=== PATIENT | male | born 1975 ===

== ENCOUNTER → 2020-04-07 14:06 | Outpatient (BNVA) | payer MEDICARE, MEDICAID, SELFPAY | PROVIDERS: PCP Internal Medicine; Visit Provider Internal Medicine Pulmonary Disease | DX: J45.30 Mild persistent asthma, uncomplicated (principal); R04.2 Hemoptysis | CPT/HCPCS: 99212 ==

== ENCOUNTER 2020-04-15 12:48 | Outpatient (REF) | payer MEDICARE, MEDICAID, SELFPAY ==
--- NOTE | 2020-04-15 12:50 | CT_ITS ---
EXAMINATION: CT CHEST WITHOUT CONTRAST CLINICAL INFORMATION: Hemoptysis COMPARISON: Previous chest CT November 2019 TECHNIQUE: Multidetector volumetric CT imaging of the chest was done. Axial MIP volume rendering provided. Sagittal and coronal reformatted images were obtained. This CT examination was performed using dose optimization techniques as appropriate, variously including the following: *Automated exposure control *Adjustment of mA and/or kV according to patient size (this includes techniques or standardized protocols for targeted exams where dose is matched to indication/reason for exam; i.e. 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 Largest pulmonary nodule is a 3 mm calcified pulmonary nodule in the lingula axial image 387 series 5. No new pulmonary nodule is seen. The lungs are otherwise clear. No bronchial wall thickening, bronchiectasis or endobronchial or endotracheal lesion is seen. MEDIASTINUM: The mediastinum is normal. PLEURA: There is no pleural effusion. No pleural mass or thickening. AXILLA: No lymphadenopathy. UPPER ABDOMEN: There may be a tiny gallstone in the gallbladder. There is diverticulosis of the colon. OSSEOUS STRUCTURES: Unremarkable. CT/CT chest wo con IMPRESSION: Stable small calcified and noncalcified pulmonary nodules. Slight elevation of the right hemidiaphragm. No cause of hemoptysis seen.
== END 2020-04-15 12:49 | disposition home or self-care (01) ==
LOC: HO.CT 12:48
PROVIDERS: PCP Internal Medicine; Visit Provider Internal Medicine Pulmonary Disease
DX: R04.2 Hemoptysis (principal)
CPT/HCPCS: 71250

== ENCOUNTER 2020-05-17 13:58 | Emergency (ER) | payer MEDICARE, MEDICAID, SELFPAY ==
--- NOTE | ~2020-05-17 | XR_ITS ---
EXAMINATION: XR SACRUM AND COCCYX CLINICAL INFORMATION: Back pain status post fall. COMPARISON: 08/12/2015 sacrum/coccyx radiographs. TECHNIQUE: 2 views of the sacrum and 2 views of the coccyx were obtained. FINDINGS: There is normal sacrococcygeal curvature. No acute fracture is seen. The soft tissues are unremarkable. XR/XR sacrum coccyx min 2V IMPRESSION: No acute fracture. No significant interval change.
--- NOTE | ~2020-05-17 | XR_ITS ---
EXAMINATION: XR HIP, RIGHT CLINICAL INFORMATION: Pain after fall COMPARISON: None TECHNIQUE: Two views of the right hip. FINDINGS: Bones and soft tissues are normal. No fracture. Alignment is anatomic. Hip joint space is maintained. XR/XR hip RT w PEL1V IMPRESSION: Normal right hip.
--- NOTE | ~2020-05-17 | XR_ITS ---
EXAMINATION: XR LUMBOSACRAL SPINE CLINICAL INFORMATION: Back pain status post slip and fall. COMPARISON: None TECHNIQUE: Three views of the lumbosacral spine. FINDINGS: Mild lumbar dextro scoliosis is seen with apex at L2-3. There is normal lumbar lordosis and spinal alignment. The vertebral bodies are intact. The intervertebral disc spaces are unremarkable. There is no acute fracture. XR/XR lumbar spine 2-3V IMPRESSION: Mild lumbar dextroscoliosis. No acute fracture.
[2020-05-17 14:00] VITALS: BP 135/99; PULSE 87; RESP 18; TEMP 36.7; O2SAT 99; BMI 29.1
[2020-05-17] MEDS: Ibuprofen 800 MG TABLET PO (16:03)
[2020-05-17] MEDS: oxyCODONE HCl Immed Release 5 MG TABLET PO (16:03)
--- NOTE | 2020-05-17 16:03 | ED.FALL ---
HPI - Fall General Chief Complaint: Fall Stated Complaint: FALL Time Seen by Provider: 05/17/20 14:13 Source: patient Mode of arrival: ambulatory Limitations: no limitations History of Present Illness HPI Narrative: 45-year-old male presenting to the ED with complaints of right hip/lower back/coccyx pain after he slipped and fell while shoveling his stairs at his house on Monday worse today. Reports that he fell down 3 steps. Denies head injury or loss of consciousness. Denies being on any blood thinners. Denies any other injuries complaints or concerns at this time. Related Data Home Medications Medication Instructions Recorded Confirmed fluticasone 250 mcg-salmeterol 50 1 ea PO BID 04/07/20 mcg/dose blistr powdr for inhalation Previous Rx's Medication Instructions Recorded amoxicillin 250 mg capsule 250 mg PO Q8H #30 cap 03/12/20 tiotropium 2.5 mcg-olodaterol 2.5 2 puff INHALATION DAILY 30 Days #1 04/07/20 mcg/actuation mist for inhalation ea acetaminophen [Tylenol Extra 1,000 mg PO QID PRN #14 tab 05/17/20 Strength] cyclobenzaprine 10 mg PO TID PRN #10 tab 05/17/20 ibuprofen 800 mg PO Q8H PRN #14 tab 05/17/20 lidocaine [Lidoderm] 1 patch TOPICAL DAILY #15 ea 05/17/20 oxycodone 5 mg PO BID PRN #10 tab 05/17/20 Allergies Allergy/AdvReac Type Severity Reaction Status Date / Time No Known Allergies Allergy Verified 05/07/20 08:16 Review of Systems Review of Systems: Constitutional : No trauma, No Weight loss, No Fever, No Chills, ENT/Mouth : No Hearing loss, No Ear Pain, No Nasal Congestion, No Sinus Pain, No Hoarseness, No sore throat, No Rhinorrhea, No Swallowing Difficulty Cardiovascular : No Chest Pain, No SOB Respiratory : No Cough, No Dyspnea Gastrointestinal : No Nausea, No Vomiting, No Diarrhea, No abdominal Pain, No Hematochezia, No Melena Genitourinary : No Dysuria, No Urinary Frequency, No Hematuria, No Urinary or Bowel Incontinence/retention Musculoskeletal : + Back pain, No neck pain, No joint stiffness, No joint swelling Skin : No Skin Lesions, No rash or signs of infection Neuro : No Weakness, No radiation, No Numbness, No Paresthesias, No headache, no loss of bowel or bladder incontinence, no saddle anesthesia Denies history of IV drug usage. Yes all other systems are reviewed and are negative COUNTS INCLUDE 234 BEDS AT THE [facility] Past Medical History Attestation statement: The following information was validated with the patient. Surgical History History of ear surgery History of lipoma History of surgery History of tonsillectomy Family History Family History Father Hypertension Mother Diabetes Paternal Grandfather Colon cancer Family/Other FH: mental illness Social History Social History Alcohol intake: never Smoking Status: Former smoker Tobacco Type: Cigarette Advance Directives: Yes Advance Directives Information Provided: Yes Advance Directives on File: No Physical Exam Vital Signs: Vital Signs: Last Vital Signs Temp 98.0 F 05/17/20 14:00 Pulse 87 05/17/20 14:00 Resp 18 05/17/20 14:00 BP 135/99 H 05/17/20 14:00 Pulse Ox 99 05/17/20 14:00 Body Mass Index 29.1 vital signs have been reviewed as normal and appeared to be correct. Blood pressure normal. Heart rate normal. Respiration rate normal. Temperature normal. Oxygen saturation normal. Appearance: Alert. Oriented X3. No acute distress. Head: Normal external exam. Normocephalic. Atraumatic. No Asher signs noted. No raccoon eyes noted Eyes: PERRLA. EOMI. Conjunctiva and sclera normal. Eyelids normal. ENT: EAC normal. TM's Normal. Pharynx normal. Uvula midline. Moist mucous membranes. No trismus noted. No drooling noted. No muffled voice noted. Neck: Normal inspection. Neck supple. FROM. No adenopathy. Thyroid Normal. No meningeal signs. No neck mass noted. CVS: Normal heart rate and rhythm. Heart sound normal. No murmurs noted. Pulses normal throughout. Respiratory: No respiratory distress. Painless inspiration. Breath sounds normal. No wheezes/rales/rhonchi noted. Chest nontender. No accessory muscle usage noted or decreased air movement noted. Abdomen: Soft and nontender. Bowel sounds normal in all 4 quadrants. No distention noted. No organomegaly noted. No visible injury noted. Back: No CVA tenderness. Full range of motion noted. No obvious deformities, or edema. Mild para-spinal muscular tenderness from lumbar region to coccyx. Full ROM in back and lower extremities. 5/5 strength hip extension/flexion, abduction, adduction. Mild Lumbar pain with hip flexion against resistance. Straight leg raise test negative on right; Straight leg raise test negative on left; Reflexes normal ankle and knee bilaterally; EHL motor strength normal bilaterally Skin: Skin warm and dry. Normal skin color. Normal skin turgor. No rashes/lesions/lacerations noted. Extremities: Patient with tenderness to palpation to right hip joint. No obvious deformities noted. Patient has full range of motion. No laxity noted. No rashes/lesion/induration/fluctuance or signs of infection noted. No lower extremity edema. Extremities exhibit normal range of motion. Extremities nontender. Neuro: Oriented X 3. No motor deficit. No sensory deficit. Reflexes normal. Patient has a normal steady gait. Course Course Course Narrative: Pt c likely muscular pain, but could be herniated disc. Neuro exam shows no deficits. Not c/w AAA/epidural abscess/dissection.No high risk Hx (Incont, fever, immunosupp, recent surgery/LP, coag, signif trauma, wt loss, puls mass, hx/o Ca, TB, or IVDU) to warrant MRI/CT today. Not c/w Pyelo/UTI/kidney stone/spinal fx. Not cauda equina syndrome. Will obtain x-rays of lumbar/coccyx and right hip provide symptomatic treatment and re-evaluate. Reevaluation(s) Reevaluation #1: - x-ray of right hip/lumbar spine and coccyx and sacrum within normal limits no acute fractures or any other acute processes. Will DC home with symptomatic treatment along with instructions to return if any new or worsening symptoms to follow up with primary care provider. Patient understands agrees the plan. Time: 16:25 [facility] - Fall Medical Records Attestation: I reviewed the patient's medical records. Imaging Data Lumbar spine x-ray: Attestation: I personally reviewed and interpreted this imaging study as follows: Radiologist's impression: FINDINGS: Mild lumbar dextro scoliosis is seen with apex at L2-3. There is normal lumbar lordosis and spinal alignment. The vertebral bodies are intact. The intervertebral disc spaces are unremarkable. There is no acute fracture. XR/XR lumbar spine 2-3V IMPRESSION: Mild lumbar dextroscoliosis. No acute fracture. Right hip x-ray: Attestation: I personally reviewed and interpreted this imaging study as follows: Radiologist's impression: FINDINGS: Bones and soft tissues are normal. No fracture. Alignment is anatomic. Hip joint space is maintained. XR/XR hip RT w PEL1V IMPRESSION: Normal right hip. Coccyx and sacrum x-ray: Attestation: I personally reviewed and interpreted this imaging study as follows: Radiologist's impression: FINDINGS: There is normal sacrococcygeal curvature. No acute fracture is seen. The soft tissues are unremarkable. XR/XR sacrum coccyx min 2V IMPRESSION: No acute fracture. No significant interval change. Discharge Plan Discharge Clinical Impression: Lumbar strain, Strain of coccyx, Strain of right hip, Fall Patient Disposition: Home, Self-Care Instructions: Low Back Strain (ED), Lower Back Exercises (ED) Prescriptions: New cyclobenzaprine 10 mg tablet 10 mg PO TID PRN (Reason: muscle spasm) Qty: 10 RF: 0 ibuprofen 800 mg tablet 800 mg PO Q8H PRN (Reason: pain) Qty: 14 RF: 0 acetaminophen [Tylenol Extra Strength] 500 mg tablet 1,000 mg PO QID PRN (Reason: fever or pain) Qty: 14 RF: 0 lidocaine [Lidoderm] 5 % adhesive patch,medicated 1 patch topical DAILY Qty: 15 RF: 0 oxycodone 5 mg tablet 5 mg PO BID PRN (Reason: pain) Qty: 10 RF: 0 No Action amoxicillin 250 mg capsule 250 mg PO Q8H Qty: 30 RF: 0 Stiolto Respimat 2.5-2.5 mcg/actuation mist 2 puff inhalation DAILY 30 Days Qty: 1 RF: 6 Referrals: Lauren Oconnor MD [Primary Care Provider] - 2 days Stand Alone Forms: Work/School Release Print Language: Luxembourger
== END 2020-05-17 16:40 | disposition home or self-care (01) ==
PROVIDERS: Emergency Provider Emergency Medicine; PCP Internal Medicine
DX: S39.012A Strain of muscle, fascia and tendon of lower back, initial encounter (principal); S33.8XXA Sprain of other parts of lumbar spine and pelvis, initial encounter; S76.011A Strain of muscle, fascia and tendon of right hip, initial encounter; W00.1XXA Fall from stairs and steps due to ice and snow, initial encounter; Y93.H1 Activity, digging, shoveling and raking; Y92.018 Other place in single-family (private) house as the place of occurrence of the external cause; Y99.9 Unspecified external cause status; F17.210 Nicotine dependence, cigarettes, uncomplicated
CPT/HCPCS: 72100; 72220; 73502; 99283

== ENCOUNTER 2020-07-22 15:11 | Outpatient (REF) | payer MEDICARE, MEDICAID, SELFPAY | END 2020-07-22 15:12 | disposition home or self-care (01) | LOC: HO.LAB 15:11 | PROVIDERS: Visit Provider Internal Medicine | DX: Z20.822 Contact with and (suspected) exposure to COVID-19 (principal) | CPT/HCPCS: C9803; U0003; U0005 ==

== ENCOUNTER → 2020-08-11 13:48 | Outpatient (BNVA) | payer SELFPAY | PROVIDERS: PCP Internal Medicine; Visit Provider Physician Assistant Medical | DX: Z02.79 Encounter for issue of other medical certificate (principal) ==

== ENCOUNTER 2021-02-13 07:55 | Outpatient (REF) | payer MEDICARE, MEDICAID, SELFPAY ==
--- NOTE | ~2021-02-13 | XR_ITS ---
EXAMINATION: XR CHEST CLINICAL INFORMATION: Chest pain COMPARISON: Previous chest x-rays most recent October [address] April 2020 TECHNIQUE: 2 views of the chest were obtained. FINDINGS: The cardiac and mediastinal contours are stable. There is slight elevation of the right hemidiaphragm that is unchanged. The lungs are clear. There is no pleural effusion or pneumothorax. Bony structures are unremarkable. XR/XR chest 2V IMPRESSION: No evidence for acute disease in the chest.
[2021-02-13 08:06] LABS: MANUAL DIFF FLAG NO
[2021-02-13 09:35] LABS: Basophils Absolute Auto 0.1 X10*3/uL (0.0-0.2); Basophils Percent Auto 0.8 % (0-2); Eosinophils Absolute Auto 0.2 X10*3/uL (0.0-0.4); Eosinophils Percent Auto 1.7 % (0-4); Hematocrit 44.9 % (42.0-52.0); Hemoglobin 14.5 g/dl (14.0-18.0); Imm Gran Abs Auto 0.05 X10*3/uL (0.00-0.03); Imm Gran Pct Auto 0.6 % (0.0-0.4); Lymphocytes Absolute Auto 2.5 X10*3/uL (1.2-4.9); Mean Corpuscular HGB Conc 32.3 g/dl (31.0-36.0); Mean Corpuscular Hemoglobin 30.9 pg (27.0-33.0); Mean Corpuscular Volume 95.5 fL (80.0-98.0); Monocytes Percent Auto 10.9 % (2-11); Platelet Count 225 X10*3/uL (160-400); Red Cell Distribution Width 11.3 % (11.0-16.0); White Blood Count 8.7 X10*3/uL (4.8-10.8)
[2021-02-13 09:58] LABS: Alanine Aminotransferase 18 U/L (0-40); Albumin Level 4.2 g/dL (3.5-5.0); Alkaline Phosphatase 58 U/L (39-117); Anion Gap 10 (12-20); Aspartate Amino Transferase 17 U/L (5-37); Bilirubin Total 0.5 mg/dL (0.0-1.0); Blood Urea Nitrogen 18 mg/dL (9-16); Calcium 8.8 mg/dL (8.4-10.2); Carbon Dioxide 24 mmol/L (22-29); Chloride 111 mmol/L (96-108); Cholesterol 137 mg/dL; Estimated Glomerular Filt Rate > 60; Glucose Fasting 87 mg/dL (60-99); HDL Cholesterol 31 mg/dL; LDL Cholesterol Calculated 90 mg/dl; Potassium 4.7 mmol/L (3.3-5.1); Sodium 140 mmol/L (135-145); Total Protein 6.5 g/dL (6.5-8.0); Triglycerides 80 mg/dL
== END 2021-02-13 07:56 | disposition home or self-care (01) ==
LOC: HO.LAB 07:55
PROVIDERS: PCP Internal Medicine; Visit Provider Internal Medicine
DX: R07.9 Chest pain, unspecified (principal); E78.5 Hyperlipidemia, unspecified; D64.9 Anemia, unspecified
CPT/HCPCS: 36415; 71046; 80053; 80061; 85025

== ENCOUNTER 2021-07-01 09:04 | Outpatient (REF) | payer MEDICARE, MEDICAID, SELFPAY ==
[2021-07-01 09:26] LABS: COVID-19 Test Positive (Negative)
== END 2021-07-01 09:05 | disposition home or self-care (01) ==
LOC: HO.LAB 09:04
PROVIDERS: Visit Provider Internal Medicine
DX: Z20.822 Contact with and (suspected) exposure to COVID-19 (principal)
CPT/HCPCS: 87635; C9803

== ENCOUNTER 2021-08-11 20:21 | Emergency (ER) | payer MEDICARE, MEDICAID, SELFPAY ==
--- NOTE | ~2021-08-11 | XR_ITS ---
EXAMINATION: LEFT ANKLE AND LEFT FOOT.. CLINICAL INFORMATION: Crush injury. COMPARISON: None TECHNIQUE: 3 views left foot and 2 views left ankle. FINDINGS: There is no visible acute fracture, dislocation or subluxation. The subtalar joints and the ankle mortise is normal. There is a small retrocalcaneal enthesophyte. The soft tissues are normal. Left ankle: The ankle mortise and subtalar joints are normal. There is no abnormal joint effusion. No acute fracture seen. XR/XR foot LT 2V IMPRESSION: No acute fracture or dislocation left foot or left ankle. There is a small retrocalcaneal enthesophyte. The soft tissues are normal.
--- NOTE | ~2021-08-11 | XR_ITS ---
EXAMINATION: LEFT ANKLE AND LEFT FOOT.. CLINICAL INFORMATION: Crush injury. COMPARISON: None TECHNIQUE: 3 views left foot and 2 views left ankle. FINDINGS: There is no visible acute fracture, dislocation or subluxation. The subtalar joints and the ankle mortise is normal. There is a small retrocalcaneal enthesophyte. The soft tissues are normal. Left ankle: The ankle mortise and subtalar joints are normal. There is no abnormal joint effusion. No acute fracture seen. XR/XR ankle LT 2V IMPRESSION: No acute fracture or dislocation left foot or left ankle. There is a small retrocalcaneal enthesophyte. The soft tissues are normal.
[2021-08-11 22:41] VITALS: BP 124/92; PULSE 73; RESP 16; TEMP 36.4; O2SAT 98; BMI 26.0
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
[2021-08-11] MEDS: Ketorolac Tromethamine 60 MG/2 ML VIAL IM (23:56)
== END 2021-08-12 00:10 | disposition home or self-care (01) ==
PROVIDERS: Emergency Provider Internal Medicine; PCP Internal Medicine
DX: S90.32XA Contusion of left foot, initial encounter (principal); W20.8XXA Other cause of strike by thrown, projected or falling object, initial encounter; Y93.9 Activity, unspecified; Y92.9 Unspecified place or not applicable; Y99.9 Unspecified external cause status
CPT/HCPCS: 73600; 73620; 96372; 99283; 99284; J1885

== ENCOUNTER → 2021-08-16 09:56 | Outpatient (BNVA) | payer MEDICARE, MEDICAID, SELFPAY | PROVIDERS: PCP Internal Medicine; Visit Provider Internal Medicine Gastroenterology | DX: K92.1 Melena (principal) | CPT/HCPCS: 99202 ==

== ENCOUNTER 2021-11-25 12:38 | Emergency (ER) | payer MEDICARE, MEDICAID, SELFPAY ==
--- NOTE | ~2021-11-25 | CT_ITS ---
EXAMINATION: CT ABDOMEN AND PELVIS WITHOUT CONTRAST CLINICAL INFORMATION: Right lower quadrant pain COMPARISON: None TECHNIQUE: Multidetector volumetric imaging was performed from the superior aspect of the liver through the pubic symphysis. Sagittal and coronal reformatted images were obtained on the technologist's workstation. This CT examination was performed using dose optimization techniques as appropriate, variously including the following: *Automated exposure control *Adjustment of mA and/or kV according to patient size (this includes techniques or standardized protocols for targeted exams where dose is matched to indication/reason for exam; i.e. extremities or head) *Use of iterative reconstruction technique DLP: 748 mGy-cm FINDINGS: LUNG BASES: The visualized lung bases are unremarkable. LIVER, GALLBLADDER, AND BILIARY TREE: The liver is normal in size, shape, and attenuation. No focal hepatic lesion or biliary ductal dilatation is present. The gallbladder is unremarkable with no evidence of radiopaque gallstones, gallbladder wall thickening, or obvious pericholecystic inflammatory changes. PANCREAS: Unremarkable. SPLEEN: Unremarkable. ADRENAL GLANDS: Unremarkable. KIDNEYS AND URETERS: The kidneys are normal in size, shape, and attenuation. No hydronephrosis, hydroureter, or calculi seen. No perinephric stranding. BLADDER: Unremarkable. GASTROINTESTINAL TRACT: The small and large bowel are unremarkable. The appendix is unremarkable. ABDOMINAL WALL: No significant hernia is appreciated. LYMPH NODES: Normal. VASCULAR: Unremarkable. PELVIC VISCERA: Unremarkable. OSSEOUS STRUCTURES: Unremarkable. CT/CT abdomen pelvis wo con IMPRESSION: No acute abnormality CT scan abdomen pelvis. Fleischner guidelines were followed.
[2021-11-25 12:43] VITALS: BP 139/96; PULSE 65; RESP 18; TEMP 36.8; O2SAT 98; BMI 26.8
[2021-11-25 14:01] LABS: MANUAL DIFF FLAG NO
[2021-11-25 14:06] LABS: Basophils Absolute Auto 0.1 X10*3/uL (0.0-0.2); Basophils Percent Auto 0.6 % (0-2); Eosinophils Absolute Auto 0.1 X10*3/uL (0.0-0.4); Eosinophils Percent Auto 1.2 % (0-4); Hematocrit 44.9 % (42.0-52.0); Imm Gran Abs Auto 0.06 X10*3/uL (0.00-0.03); Imm Gran Pct Auto 0.7 % (0.0-0.4); Lymphocytes Absolute Auto 2.7 X10*3/uL (1.2-4.9); Lymphocytes Percent Auto 30.5 % (20-40); Mean Corpuscular HGB Conc 33.4 g/dl (31.0-36.0); Mean Corpuscular Hemoglobin 30.6 pg (27.0-33.0); Mean Corpuscular Volume 91.6 fL (80.0-98.0); Mean Platelet Volume 10.3 fL (9.4-12.4); Monocytes Absolute Auto 0.8 X10*3/uL (0.1-1.2); Monocytes Percent Auto 9.5 % (2-11); Neutrophils Absolute Auto 5.1 x10*3/uL (2.0-8.3); Neutrophils Percent Auto 57.5 % (45-73); Platelet Count 212 X10*3/uL (160-400); Red Cell Distribution Width 11.5 % (11.0-16.0); White Blood Count 8.9 X10*3/uL (4.8-10.8)
[2021-11-25 14:21] LABS: Alanine Aminotransferase 33 U/L (0-40); Albumin Level 4.1 g/dL (3.5-5.0); Alkaline Phosphatase 56 U/L (39-117); Anion Gap 12 (12-20); Aspartate Amino Transferase 21 U/L (5-37); Bilirubin Total 0.6 mg/dL (0.0-1.0); Blood Urea Nitrogen 10 mg/dL (9-16); Calcium 9.1 mg/dL (8.4-10.2); Carbon Dioxide 27 mmol/L (22-29); Chloride 107 mmol/L (96-108); Creatinine Clr Calc Pharmacy 92.6; Estimated Glomerular Filt Rate > 60; Glucose Random 85 mg/dL (60-115); Potassium 4.6 mmol/L (3.3-5.1); Sodium 141 mmol/L (135-145); Total Protein 6.6 g/dL (6.5-8.0)
--- NOTE | 2021-11-25 16:14 | ED.ABDPAIN ---
HPI - Abdominal Pain General Chief Complaint: Abdominal Pain Stated Complaint: abd pain Time Seen by Provider: 11/25/21 16:14 Source: patient Mode of arrival: ambulatory Limitations: no limitations History of Present Illness HPI narrative: This is a 46 year old male presenting to the emergency department with a complaint of abdominal pain and black stools x1 week. He states that one week ago he began having right lower quadrant pain with associated melena and loose stools. His RLQ pain has been constant since onset and is worse with eating. No radiation of pain. Associated symptoms include chills and one episode of vomiting yesterday. He tells me that he's been told he has a GI bleed and currently has a colonoscopy scheduled with Dr. Burgess. He adds that grandfather from colon cancer. Denies fever, fatigue, weight changes, chest pain, shortness of breath, BRBPR or urinary symptoms. MD elicited complaint: abdominal pain (RLQ) Onset (ago): week(s) (1) Pain Consistency: constant Location: RLQ Severity: moderate Related Data Previous Rx's Medication Instructions Recorded tiotropium 2.5 mcg-olodaterol 2.5 2 puff inhalation DAILY 30 days #1 02/04/21 mcg/actuation mist for inhalation ea (Stiolto Respimat) ipratropium 20 mcg-albuterol 100 1 puff inhalation Q6H 30 days #4 04/27/21 mcg/actuation mist for inhalation grams (Combivent Respimat) cyclobenzaprine 10 mg tablet 10 mg PO TID PRN muscle spasm 30 06/28/21 days #90 tabs oxycodone 5 mg tablet 5 mg PO Q8H PRN pain #5 tabs 08/11/21 sodium,potassium,mag sulfates 17.5 See Rx Instructions PO .COMPLEX 08/16/21 gram-3.13 gram-1.6 gram oral soln #354 mL (Suprep Bowel Prep Kit) simethicone 180 mg capsule (Gas 180 mg PO DAILY PRN abdominal 11/25/21 Relief (simethicone)) distention #20 caps Allergies Allergy/AdvReac Type Severity Reaction Status Date / Time ibuprofen Allergy Intermediate GI Bleeding Verified 11/25/21 12:43 Review of Systems Review of Systems Constitutional : No Weight loss, No Fever, + Chills, No Fatigue, No Malaise ENT/Mouth : No sore throat, No Rhinorrhea Eyes: No Eye Pain, No Swelling, No Redness Cardiovascular : No Chest Pain, No SOB, No Dyspnea on Exertion, No Orthopnea, No Edema, no Palpitations Respiratory : No Cough, No Sputum, No Wheezing Gastrointestinal : No Nausea, + Vomiting, + Diarrhea, No Constipation, + abdominal Pain, No Hematochezia, + Melena Genitourinary : No Dysuria, No Urinary Frequency, No Hematuria, Musculoskeletal : No joint pain, No Myalgias, No Joint Swelling Skin : No Skin Lesions, No rash Neuro : No Weakness, No Numbness, No Dizziness, No Headache Psych : No Anxiety/Panic, No Depression All other systems reviewed and are negative Yes all other systems are reviewed and are negative [facility] Past Medical History Attestation statement: The following information was validated with the patient. Source: old records reviewed and nursing notes reviewed Medical History Chest pain AYLIN (generalized anxiety disorder) Low back pain Melena Mild recurrent major depression Overweight (BMI 25.0-29.9) Pulmonary nodules Surgical History History of ear surgery History of esophagogastroduodenoscopy (EGD) History of lipoma History of surgery History of tonsillectomy Hx of colonoscopy Family History Family History Father Hypertension Mother Diabetes Paternal Grandfather Colon cancer Family/Other FH: mental illness Social History Social History Housing: House Alcohol intake: never Patient Tobacco Use Status: Former Tobacco user Tobacco use type: Cigarette Cigarettes Per Day: 1 e-Cigarette/Vaping Use: Never Used Second Hand Smoke Exposure: No Substance Use Type: Marijuana Advance Directives: No Advance Directives Information Provided: No service: No Current occupational status: employed Current occupational exposures/hazards: No Physical Exam ED Vital Signs: Vital Signs - 24 hr 11/25/21 12:43 11/25/21 18:15 11/25/21 18:17 Temperature 98.2 F Pulse Rate 65 58 Respiratory Rate 18 18 16 Blood Pressure 139/96 H 139/84 Pulse Oximetry 98 97 Oxygen Delivery Method Room Air Room Air BMI result Body Mass Index 26.8 VSS Appearance: Alert.? Oriented X3.? No acute distress.? Head: Normocephalic, atraumatic, no step-offs or deformities Eyes: Pupils equal, round and reactive to light.? ENT: Pharynx normal.? Neck: Normal inspection.? Neck supple.? CVS: Normal heart rate and rhythm.? Pulses normal.? Respiratory: No respiratory distress.? Breath sounds normal.? Abdomen: Soft, mildly tender to palpation of the RLQ. Small nodules noted superficially to the right upper abdomen, mobile, non tender. Abdomen slightly distended. Normoactive bowel sounds. Skin: Skin warm and dry.? Normal skin color.? Normal skin turgor.? Extremities: No lower extremity edema.? No calf ttp. 5/5 strength to bilateral upper and lower extremities Neuro: Oriented X 3.? No motor deficit.? No sensory deficit. Course Reevaluation(s) Reevaluation #1: CBC appears to be within normal limits. Chemistry with no acute electrolyte abnormalities requiring intervention. Urine clean. OBS negative. Time: 19:17 Reevaluation #2: Patient feeling better after passing gas and stool. Reports symptomatic relief after simethicone. abdomen is less distended. Tolerating p.o. fluids. CT of the abdomen and pelvis no acute findings. patient tells us that he is scheduled to see GI on Monday. He will be sent home with simethicone. Went over worrisome symptoms with patient and when to return, patient expressed understanding. I answered all patient's questions and patient expressed understanding of discharge plans. Comfortable to discharge home with follow-up by PCP and GI. Time: 20:30 MDM - Abdominal Pain MDM Narrative Medical decision making narrative: 1615 This is a 46 year old male who presents to the ED with RLQ pain and dark stool x1 week. According to pt he has seen Dr. Burgess for GI bleed and has a colonoscopy scheduled with him. Family history significant for colon cancer. Physical exam significant for right lower quadrant tenderness to palpation, mild distention and small mobile nontender nodules noted to the RUQ. VSS. Rectal exam significant for mucousy stool, no stephen blood. Will rule out GI bleed. Unlikely acute appendicitis or diverticulitis. Plan at this time is to order basic labs, UA, OBS, and CT abd/pelvis. Medical Records Attestation: I reviewed the patient's medical records. Lab Data Attestation: I reviewed the patient's lab results. Result diagrams: 11/25/21 13:57 11/25/21 13:57 Labs: Lab Results 11/25/21 11/25/21 11/25/21 Range/Units 13:57 13:57 18:18 WBC 8.9 (4.8-10.8) X10*3/uL RBC 4.90 (4.60-5.80) X10*6/uL Hgb 15.0 (14.0-18.0) g/dl Hct 44.9 (42.0-52.0) % MCV 91.6 (80.0-98.0) fL MCH 30.6 (27.0-33.0) pg MCHC 33.4 (31.0-36.0) g/dl RDW 11.5 (11.0-16.0) % Plt Count 212 (160-400) X10*3/uL MPV 10.3 (9.4-12.4) fL Immature Gran % (Auto) 0.7 H (0.0-0.4) % Neut % (Auto) 57.5 (45-73) % Lymph % (Auto) 30.5 (20-40) % [place] % (Auto) 9.5 (2-11) % Eos % (Auto) 1.2 (0-4) % Baso % (Auto) 0.6 (0-2) % Lymph # (Auto) 2.7 (1.2-4.9) X10*3/uL [place] # (Auto) 0.8 (0.1-1.2) X10*3/uL Eos # (Auto) 0.1 (0.0-0.4) X10*3/uL Baso # (Auto) 0.1 (0.0-0.2) X10*3/uL Abs Immat Gran (auto) 0.06 H (0.00-0.03) X10*3/uL Absolute Neuts (auto) 5.1 (2.0-8.3) x10*3/uL Absolute Nucleated RBC 0.000 (0.0-0.012) X10*3/uL Nucleated RBC % (auto) 0.0 (0.0-0.2) /100WBC Sodium 141 (135-145) mmol/L Potassium 4.6 (3.3-5.1) mmol/L Chloride 107 (96-108) mmol/L Carbon Dioxide 27 (22-29) mmol/L Anion Gap 12 (12-20) BUN 10 (9-16) mg/dL Creatinine 1.07 (0.5-1.4) mg/dL Estim Creat Clear Calc 92.6 Estimated GFR > 60 Random Glucose 85 (60-115) mg/dL Calcium 9.1 (8.4-10.2) mg/dL Total Bilirubin 0.6 (0.0-1.0) mg/dL AST 21 (5-37) U/L ALT 33 (0-40) U/L Alkaline Phosphatase 56 (39-117) U/L Total Protein 6.6 (6.5-8.0) g/dL Albumin 4.1 (3.5-5.0) g/dL Urine Color Urine Appearance Urine pH (5.0-8.0) Ur Specific [place] (1.005-1.025) Urine Protein (Neg-Trace) mg/dL Urine Glucose (UA) (Negative) mg/dL Urine Ketones (Negative) mg/dL Urine Blood (Negative) Urine Nitrite (Negative) Ur Leukocyte Esterase (Negative) Stool Occult Blood NEGATIVE (NEGATIVE) 11/25/21 Range/Units 18:58 WBC (4.8-10.8) X10*3/uL RBC (4.60-5.80) X10*6/uL Hgb (14.0-18.0) g/dl Hct (42.0-52.0) % MCV (80.0-98.0) fL MCH (27.0-33.0) pg MCHC (31.0-36.0) g/dl RDW (11.0-16.0) % Plt Count (160-400) X10*3/uL MPV (9.4-12.4) fL Immature Gran % (Auto) (0.0-0.4) % Neut % (Auto) (45-73) % Lymph % (Auto) (20-40) % [place] % (Auto) (2-11) % Eos % (Auto) (0-4) % Baso % (Auto) (0-2) % Lymph # (Auto) (1.2-4.9) X10*3/uL [place] # (Auto) (0.1-1.2) X10*3/uL Eos # (Auto) (0.0-0.4) X10*3/uL Baso # (Auto) (0.0-0.2) X10*3/uL Abs Immat Gran (auto) (0.00-0.03) X10*3/uL Absolute Neuts (auto) (2.0-8.3) x10*3/uL Absolute Nucleated RBC (0.0-0.012) X10*3/uL Nucleated RBC % (auto) (0.0-0.2) /100WBC Sodium (135-145) mmol/L Potassium (3.3-5.1) mmol/L Chloride (96-108) mmol/L Carbon Dioxide (22-29) mmol/L Anion Gap (12-20) BUN (9-16) mg/dL Creatinine (0.5-1.4) mg/dL Estim Creat Clear Calc Estimated GFR Random Glucose (60-115) mg/dL Calcium (8.4-10.2) mg/dL Total Bilirubin (0.0-1.0) mg/dL AST (5-37) U/L ALT (0-40) U/L Alkaline Phosphatase (39-117) U/L Total Protein (6.5-8.0) g/dL Albumin (3.5-5.0) g/dL Urine Color Yellow Urine Appearance Clear Urine pH 5.5 (5.0-8.0) Ur Specific [place] 1.025 (1.005-1.025) Urine Protein Negative (Neg-Trace) mg/dL Urine Glucose (UA) Negative (Negative) mg/dL Urine Ketones Negative (Negative) mg/dL Urine Blood Negative (Negative) Urine Nitrite Negative (Negative) Ur Leukocyte Esterase Negative (Negative) Stool Occult Blood (NEGATIVE) Critical Care Time Critical Care Time Critical Care Time: No Discharge Plan Discharge Clinical Impression: Abdominal pain, Abdominal gas pain Patient Disposition: Home, Self-Care Instructions: Abdominal Pain (ED), Colonoscopy (DC) Additional Instructions: Take your medications as prescribed. If you were prescribed antibiotics today, it is important that you take your medication to their entirety, do not skip any doses, do not finish them early. Follow-up with your primary care provider this week. Follow up with GI for scheduled appointment on Monday. Return to the emergency department with new or worsening symptoms. Such as fevers, chills, chest pain, shortness of breath, nausea, vomiting, dizziness, headache, vision changes, lethargy, bloody stools, vomiting blood In case of emergency call 911 Your laboratory studies, OBS were reassuring, your CT scan showed no acute findings. You should follow-up with GI. CT/CT abdomen pelvis wo con IMPRESSION: No acute abnormality CT scan abdomen pelvis.? ? Fleischner guidelines were followed. Prescriptions: New simethicone [Gas Relief (simethicone)] 180 mg capsule 180 mg PO DAILY PRN (Reason: abdominal distention) Qty: 20 0RF No Action Combivent Respimat 20-100 mcg/actuation mist 1 puff inhalation Q6H 30 Days Qty: 4 1RF oxycodone 5 mg tablet 5 mg PO Q8H PRN (Reason: pain) Qty: 5 0RF cyclobenzaprine 10 mg tablet 10 mg PO TID PRN (Reason: muscle spasm) 30 Days Qty: 90 0RF Stiolto Respimat 2.5-2.5 mcg/actuation mist 2 puff inhalation DAILY 30 Days Qty: 1 6RF Suprep Bowel Prep Kit 17.5-3.13-1.6 gram recon soln See Rx Instructions PO .COMPLEX Qty: 354 0RF Rx Instructions: DILUTE; drink 1/2 at 6-8 pm and half at 11 PM- 1AM Referrals: Lory Burgess MD [Physician] - 2 days Lauren Oconnor MD [Primary Care Provider] - 2 days Stand Alone Forms: Work/School Release
[2021-11-25 18:15] VITALS: RESP 18
[2021-11-25] MEDS: Morphine Sulfate 4 MG/ML CARTRIDGE IVPUSH (18:15)
[2021-11-25 18:17] VITALS: BP 139/84; PULSE 58; RESP 16; O2SAT 97
[2021-11-25 18:23] LABS: OBS Int Ctl Valid YES; OBS1 NEGATIVE (NEGATIVE)
[2021-11-25] MEDS: Simethicone 80 MG TAB.CHEW 160 MG PO (19:02)
[2021-11-25 19:07] LABS: Appearance Urine Clear; Color Urine Yellow; Glucose Urine UA Negative (Negative); Leukocyte Esterase Urine Negative (Negative); Nitrite Urine Negative (Negative); PH 5.5 (5.0-8.0); Specific Gravity - Urine 1.025 (1.005-1.025); Urine Blood Negative (Negative); Urine Ketones Negative (Negative); Urine Protein Negative (Neg-Trace)
== END 2021-11-25 21:00 | disposition home or self-care (01) ==
PROVIDERS: Physician Assistant; Emergency Provider Emergency Medicine; PCP Internal Medicine
DX: R10.31 Right lower quadrant pain (principal); R14.0 Abdominal distension (gaseous); F12.90 Cannabis use, unspecified, uncomplicated
CPT/HCPCS: 36415; 74176; 80053; 81003; 82272; 85025; 96374; 99284; J2270

== ENCOUNTER 2021-11-29 09:56 | Outpatient (REF) | payer MEDICARE, MEDICAID, SELFPAY ==
[2021-11-30 12:42] LABS: H Pylori Breath Test Negative (Negative)
== END 2021-11-29 09:57 | disposition home or self-care (01) ==
LOC: CF 09:56
PROVIDERS: PCP Internal Medicine; Visit Provider Internal Medicine Gastroenterology
DX: K92.1 Melena (principal); R19.8 Other specified symptoms and signs involving the digestive system and abdomen; J45.30 Mild persistent asthma, uncomplicated; R05.9 Cough, unspecified
CPT/HCPCS: 36415; 83013; 99212

== ENCOUNTER 2021-12-06 10:19 | Outpatient (REF) | payer MEDICARE, MEDICAID, SELFPAY ==
[2021-12-06 12:15] LABS: Erythrocyte Sedimentation Rate 4 MM/HR (0-15)
[2021-12-06 12:18] LABS: C Reactive Protein 0.15 mg/dL (< or = 0.50)
[2021-12-06 12:24] LABS: Appearance Urine Clear; Color Urine Yellow; Glucose Urine UA Negative (Negative); Leukocyte Esterase Urine Negative (Negative); Nitrite Urine Negative (Negative); PH 5.5 (5.0-8.0); Urine Blood Negative (Negative); Urine Ketones Negative (Negative); Urine Protein Negative (Neg-Trace)
[2021-12-06 12:27] LABS: Ferritin 322 ng/mL (20-250)
== END 2021-12-06 10:20 | disposition home or self-care (01) ==
LOC: HO.US 10:19
PROVIDERS: Visit Provider Internal Medicine Gastroenterology
DX: K92.1 Melena (principal); R19.8 Other specified symptoms and signs involving the digestive system and abdomen; R30.0 Dysuria; J45.30 Mild persistent asthma, uncomplicated; R05.9 Cough, unspecified
CPT/HCPCS: 36415; 81003; 82728; 85652; 86003; 86140

== ENCOUNTER 2021-12-16 23:30 | Outpatient (REF) | payer MEDICARE, MEDICAID, SELFPAY ==
[2021-12-17 11:48] LABS: CDiff Gene PCR NEGATIVE (Negative)
== END 2021-12-16 23:31 | disposition home or self-care (01) ==
LOC: HO.LNP 23:30
PROVIDERS: Visit Provider Internal Medicine Gastroenterology
DX: K92.1 Melena (principal); R19.8 Other specified symptoms and signs involving the digestive system and abdomen
CPT/HCPCS: 87493

== ENCOUNTER 2021-12-17 08:49 | Outpatient (REF) | payer MEDICARE, MEDICAID, SELFPAY ==
--- NOTE | ~2021-12-17 | US_ITS ---
EXAMINATION: US ABDOMEN COMPLETE CLINICAL INFORMATION: Melena, right lower quadrant pain, nausea. COMPARISON: CT abdomen and pelvis 11/25/2021. X-ray abdomen 06/25/2014. TECHNIQUE: Real-time imaging of the abdominal viscera. Today's examination is limited secondary to overlying bowel gas. FINDINGS: PANCREAS: Visualized portions of pancreas are normal in appearance. ABDOMINAL AORTA: The proximal, mid, and distal segments are normal in caliber. INFERIOR VENA CAVA: Visualized portions are normal. LIVER: Normal. The liver is normal in size. The liver contour is normal. Parenchymal echogenicity is normal. No focal hepatic lesion. There is no intrahepatic biliary duct dilatation seen. GALLBLADDER: The gallbladder is physiologically distended. No gallstones are identified. A thin septation is suspected within the gallbladder. There is no gallbladder wall thickening or pericholecystic fluid appreciated. Negative sonographic Vera's sign. COMMON BILE DUCT: Normal in caliber measuring 0.3 cm in diameter. RIGHT KIDNEY: Normal. No hydronephrosis. No renal calculi or focal parenchymal lesions. The kidney measures 11.2 cm in maximum dimension. LEFT KIDNEY: Normal. No hydronephrosis. No renal calculi or focal parenchymal lesions. The kidney measures 11.7 cm in maximum dimension. SPLEEN: Normal. The spleen measures 11.3 cm in maximum dimension. FREE FLUID: None. US/US abdomen complete IMPRESSION: Unremarkable sonographic imaging of the abdomen.
== END 2021-12-17 08:50 | disposition home or self-care (01) ==
LOC: HO.US 08:49
PROVIDERS: Visit Provider Internal Medicine Gastroenterology
DX: K92.1 Melena (principal); R19.8 Other specified symptoms and signs involving the digestive system and abdomen
CPT/HCPCS: 76700

== ENCOUNTER 2022-03-23 10:29 | Day surgery (SDC) | payer MEDICARE, MEDICAID, SELFPAY ==
[2022-03-17 13:34] VITALS: BMI 29.1
--- NOTE | 2022-03-22 13:28 | P.CONAN_ITS ---
HPI - Anesthesia Eval Consult details Narrative: 46yo M for Upper Endoscopy and Colonoscopy [facility] Active Problems Active Problems: All Active Problems (Updated 03/17/22 @ 13:32 by Josi Dumont RN) Cough (Acute) Mild persistent asthma (Acute) Hemoptysis (Acute) History of back injury (Acute) Encounter for annual wellness exam in Medicare patient (Acute) Anxiety and depression (Acute) Abnormal bowel habits (Acute) Dyspepsia (Acute) Melena (Acute) AYLIN (generalized anxiety disorder) (Acute) Mild recurrent major depression (Acute) Overweight (BMI 25.0-29.9) (Acute) Chest pain (Acute) Low back pain (Acute) Pulmonary nodules (Acute) Past Medical History Medical History (Updated 03/17/22 @ 13:32 by Josi Dumont RN) Asthma Chest pain AYLIN (generalized anxiety disorder) History of COVID-19 Low back pain Melena Mild recurrent major depression Overweight (BMI 25.0-29.9) Pulmonary nodules Family History Family History Father Hypertension Mother Diabetes Paternal Grandfather Colon cancer Family/Other FH: mental illness Surgical History Surgical History History of ear surgery History of esophagogastroduodenoscopy (EGD) History of lipoma History of surgery History of tonsillectomy Hx of colonoscopy Social History Social History (Updated 01/19/22 @ 14:07 by Lauren Dejesus MD) Housing: House Are you a primary long term care pharmacist to a significant other at home: No Do you presently have visiting nurse or other home services: No Alcohol intake: current Alcohol intake frequency: holidays/special occasions only Alcohol type: wine and hard liquor Patient Tobacco Use Status: Current everyday Tobacco user Tobacco use type: Cigarette Cigarettes Per Day: 4 Years Smoked: 20 e-Cigarette/Vaping Use: Never Used Second Hand Smoke Exposure: No Substance Use Type: Marijuana service: No Current occupational status: employed Current occupational exposures/hazards: No Cognitive needs: No Hearing needs: No Vision needs: No Meds Allergies Allergy/AdvReac Type Severity Reaction Status Date / Time ibuprofen Allergy Intermediate GI Bleeding Verified 01/19/22 14:04 Exam Exam Date and Time: March 22, 2022 1328 Height,Weight and Vital Signs: Height 6 ft Weight 97.522 kg Pertinent Lab Results Pertinent Lab Results: Laboratory Tests 11/25/21 11/25/21 13:57 13:57 WBC 8.9 Hgb 15.0 Hct 44.9 Plt Count 212 Sodium 141 Potassium 4.6 Chloride 107 Carbon Dioxide 27 BUN 10 Creatinine 1.07 Assessment and Plan Assessment Anesthesia Assessment: Chart Reviewed
--- NOTE | 2022-03-23 11:00 | MHC.SHP ---
Pre-Procedural Eval Section A Date of Service: 03/23/22 Section B Chief Complaint: melena,cough Details of Present Illness: epigastric pian, abnormal bowel habit Relevant Family History (Specify if Yes): No Relevant Social History: Other (specify) (thc use) Present Medications: see Short Stay Collaborative assessment Medical History: Significant History (Chest pain AYLIN (generalized anxiety disorder) Low back pain Melena Mild recurrent major depression Overweight (BMI 25.0-29.9) Pulmonary nodules) History of Previous Operations: Relevant previous surgery/procedure and date(s) (History of ear surgery History of esophagogastroduodenoscopy (EGD) History of lipoma History of surgery History of tonsillectomy Hx of colonoscopy) Allergies: Allergies Allergy/AdvReac Type Severity Reaction Status Date / Time ibuprofen Allergy Intermediate GI Bleeding Verified 01/19/22 14:04 Review of Systems Sugical H&P ROS: Negative: Constitution, Cardiovascular, Respiratory, Neurological, Psychiatric, Hem-Onc, Allergic/Immunologic, Gastrointestinal, Genitourinary, Musculoskeletal, Integumentary, Endocrine and Eyes/Ears/Nose/Throat Exam Surgical H&P Exam: Normal: HEENT, Normal: Heart, Normal: Lungs, Normal: Extremities, Normal: Abdomen, Normal: Skin and Normal: Neurological Plan Diagnosis/Plan: Unchanged I have reviewed the history and physical and performed a pertinent physical examination on my patient. No changes have occurred unless specified. Time Spent With Patient Time: Total time managing care of this patient today ____ minutes.
[2022-03-23 11:07] VITALS: BMI 28.2
[2022-03-23 11:17] VITALS: BP 97/69; PULSE 73; RESP 18; TEMP 36.4; O2SAT 97
[2022-03-23] MEDS: Lactated Ringers 1,000 ML 100 ML IVCONT (11:34)
--- NOTE | 2022-03-23 11:38 | W.PM.OPN ---
Operative Note Operative Note Date of Service: 03/23/22 Narrative: Operative Information Procedure Description: EGD, Colonoscopy Indication: dyspepsia, hx of melena Anesthesia: MAC FLEXIBLE TRANSORAL UPPER GASTROINTESTINAL ENDOSCOPY AND COLONOSCOPY PROCEDURE NOTE UPPER ENDOSCOPY Consent: Indications for the procedure and potential complications of bleeding, perforation, reaction to medications and missed diagnosis were discussed with the patient and informed consent was obtained. Instrument: Olympus GIF H 190 J mid size upper endoscope Monitoring: Vital signs and clinical assessment, continuous EKG monitoring, Pulse oximetry, Carbon Dioxide monitoring and blood pressure monitoring were done throughout the procedure. Procedure: The patient was placed in the left lateral decubitis position and pre-procedure medications were administered and a bite block was placed. The endoscope was inserted into the mouth and advanced under direct vision to the third part of duodenum. A careful inspection was made as the upper endoscope was withdrawn including a retroflexed examination of the proximal stomach; Findings and interventions are described below. Findings: Larynx:normal Esophagus: GE junction at 39 cm, diaphragm hiatus at 41 cm, consistent with 2 cm sliding hiatal hernia, erosive esophagitis noted, LA grade B at GEJ, bx taken Stomach: Moderate severe erosive gastritis with many erosions at antrum. Biopsies were obtained. Grade 2 flap valve on retroflexed examination of the cardia. Duodenum: edema and swelling of bulb with moderate severe erosive duodenitis, bx taken Intervention: Biopsies as noted above COLONOSCOPY Instrument: Olympus variable stiffness pediatric scope 190L Colonoscopy Monitoring: Vital signs and clinical assessment, continuous EKG monitoring, Pulse oximetry, Carbon Dioxide monitoring and blood pressure monitoring were done throughout the procedure. Colon withdrawal time was 25 minutes. Procedure: The patient was placed in the left lateral decubitis position and pre-procedure medications were administered. After a digital rectal examination of the ano-rectum, the video colonoscope was inserted into the rectum and advanced through the colon to the cecum/TI. The colonoscope was slowly withdrawn in a retrograde panoramic fashion and the colon mucosa was carefully examined including a retroflexed view of the rectum. Findings and interventions are described below. Procedure Difficulty:moderate due to looping Findings: Terminal Ileum-normal, only superficially intubated Cecum: 4-5 mm sessile polyp removed with cold forceps Ascending Colon: normal Transverse Colon -normal Descending Colon:normal Sigmoid Colon: normal Rectum: Retroflexion with small internal hemorrhoids, grade I, 5-7 mm sessile polyp removed with cold forceps Anorectum - normal Colon preparation: [place] Bowel Preparation Scale Right colon; 2 Transverse colon: 2 Left colon; 2 (0 = Unprepared colon segment with mucosa not seen due to solid stool that cannot be cleared. 1 = Portion of mucosa of the colon segment seen, but other areas of the colon segment not well seen due to staining, residual stool and/or opaque liquid. 2 = Minor amount of residual staining, small fragments of stool and/or opaque liquid, but mucosa of colon segment seen well. 3 = Entire mucosa of colon segment seen well with no residual staining, small fragments of stool or opaque liquid) Impression and Post Procedure Diagnosis: Endoscopy Findings: erosive duodenitis erosive gastritis erosive esophagitis Colonoscopy Findings: polyps internal hemorrhoids Plan: Await Pathology results Repeat Colonoscopy in 5 years due to adenomatous appearing polyps or earlier if clinically indicated High fiber diet leaflet avoid straining at stool, epsom salts and sitz bath, anusol supps or cream avoid nsaids, commence PPI if h pylori pos then treat, if ongoing sx then capsule or CTe to r/o crohns disease Above findings were reviewed with the patient and relevant handouts were provided if indicated.
[2022-03-23 13:02] VITALS: BP 96/61; PULSE 65; RESP 16; TEMP 36.1; O2SAT 96
[2022-03-23 13:17] VITALS: BP 123/90; PULSE 65; RESP 18; TEMP 36.1; O2SAT 98
== END 2022-03-23 14:23 | disposition home or self-care (01) ==
PROVIDERS: PCP Internal Medicine; Visit Provider Internal Medicine Gastroenterology
PROC: (CPT 45380; principal; 2022-03-23 12:00)
DX: K92.1 Melena (principal); R19.4 Change in bowel habit; K63.5 Polyp of colon; K62.1 Rectal polyp; K64.0 First degree hemorrhoids; K29.80 Duodenitis without bleeding; K29.50 Unspecified chronic gastritis without bleeding; B96.81 Helicobacter pylori [H. pylori] as the cause of diseases classified elsewhere; K20.80 Other esophagitis without bleeding; K44.9 Diaphragmatic hernia without obstruction or gangrene; E66.3 Overweight; Z68.26 Body mass index [BMI] 26.0-26.9, adult; R05.1 Acute cough; J45.30 Mild persistent asthma, uncomplicated; M54.50 Low back pain, unspecified; R91.8 Other nonspecific abnormal finding of lung field; F33.0 Major depressive disorder, recurrent, mild; Z86.16 Personal history of COVID-19; Z88.8 Allergy status to other drugs, medicaments and biological substances; Z87.891 Personal history of nicotine dependence; F12.90 Cannabis use, unspecified, uncomplicated
CPT/HCPCS: 45380; 43239; 88305; 88342

== ENCOUNTER → 2022-05-27 08:51 | Outpatient (BNVA) | payer MEDICARE, MEDICAID, SELFPAY | PROVIDERS: PCP Internal Medicine; Visit Provider Internal Medicine Gastroenterology | DX: K29.60 Other gastritis without bleeding (principal); K22.10 Ulcer of esophagus without bleeding | CPT/HCPCS: 99212 ==

== ENCOUNTER → 2022-08-19 08:48 | Outpatient (BNVA) | payer MEDICARE, MEDICAID, SELFPAY | PROVIDERS: PCP Internal Medicine; Visit Provider Internal Medicine Gastroenterology | DX: K29.60 Other gastritis without bleeding (principal); K22.70 Barrett's esophagus without dysplasia; K63.5 Polyp of colon | CPT/HCPCS: 99212 ==

== ENCOUNTER 2022-09-16 12:51 | Emergency (ER) | payer MEDICARE, MEDICAID, SELFPAY ==
--- NOTE | 2022-09-16 | ECG_ITS ---
Test Reason : cp Blood Pressure : / mmHG Vent. Rate : 065 BPM Atrial Rate : 065 BPM P-R Int : 154 ms QRS Dur : 098 ms QT Int : 380 ms P-R-T Axes : 015 -04 031 degrees QTc Int : 395 ms Normal sinus rhythm Normal ECG When compared with ECG of 04-NOV-2019 11:16, No significant change was found Referred By: Generic ED Physician Electronically Signed By:Jameson Borges
--- NOTE | ~2022-09-16 | XR_ITS ---
EXAMINATION: XR CHEST CLINICAL INFORMATION: Chest pain COMPARISON: None available. TECHNIQUE: 2 views of the chest were obtained. FINDINGS: No significant abnormality is noted involving the heart, lungs, mediastinum, bony thorax or soft tissues. There is slight elevation of the right hemidiaphragm similar to previous exams. XR/XR chest 2V IMPRESSION: No evidence for acute disease in the chest.
--- NOTE | ~2022-09-16 | XR_ITS ---
EXAMINATION: XR SHOULDER, LEFT CLINICAL INFORMATION: Pain COMPARISON: None available. TECHNIQUE: Three views of the left shoulder. FINDINGS: The bones and soft tissues are normal. No fracture. Glenohumeral and acromioclavicular alignment is anatomic with normal joint space. No abnormal soft tissue calcifications. XR/XR shoulder LT min 2V IMPRESSION: Normal left shoulder.
[2022-09-16 13:06] VITALS: BP 139/100; PULSE 68; RESP 16; TEMP 36.6; O2SAT 98; BMI 28.2
[2022-09-16 13:09] LABS: MANUAL DIFF FLAG NO
[2022-09-16 13:11] LABS: Basophils Absolute Auto 0.1 X10*3/uL (0.0-0.2); Basophils Percent Auto 0.9 % (0-2); Eosinophils Absolute Auto 0.2 X10*3/uL (0.0-0.4); Eosinophils Percent Auto 1.8 % (0-4); Hematocrit 44.6 % (42.0-52.0); Imm Gran Abs Auto 0.04 X10*3/uL (0.00-0.03); Imm Gran Pct Auto 0.4 % (0.0-0.4); Lymphocytes Absolute Auto 2.9 X10*3/uL (1.2-4.9); Lymphocytes Percent Auto 31.7 % (20-40); Mean Corpuscular HGB Conc 33.6 g/dl (31.0-36.0); Mean Corpuscular Volume 92.1 fL (80.0-98.0); Mean Platelet Volume 11.1 fL (9.4-12.4); Monocytes Absolute Auto 0.9 X10*3/uL (0.1-1.2); Monocytes Percent Auto 10.2 % (2-11); Platelet Count 227 X10*3/uL (160-400); Red Blood Count 4.84 X10*6/uL (4.60-5.80); Red Cell Distribution Width 11.6 % (11.0-16.0); White Blood Count 9.1 X10*3/uL (4.8-10.8)
--- NOTE | 2022-09-16 13:12 | ED.GENADULT ---
HPI - General Adult General Chief complaint: Chest Pain Stated complaint: chest pain Time Seen by Provider: 09/16/22 14:35 Source: patient Mode of arrival: ambulatory Limitations: no limitations History of Present Illness HPI narrative: Patient history of PTSD, panic attack while at work all of a sudden noticed pain in the left arm area sharp in nature coming and going and about an hour prior to arrival patient got scared and had a panic attack with shortness of breath and diaphoresis patient denies any trauma or injury to the area took 2 baby aspirin prior to arrival from emergency kit pain is deep aching pain does not increase on movements or palpation Related Data Home Medications Medication Instructions Recorded Confirmed bupropion HCl 150 mg 24 hr tablet, 150 mg PO QAM 08/19/22 09/01/22 extended release buspirone 5 mg tablet 5 mg PO TID 08/19/22 09/01/22 quetiapine 50 mg tablet 50 mg PO BEDTIME 08/19/22 09/01/22 Previous Rx's Medication Instructions Recorded ipratropium 20 mcg-albuterol 100 1 puff inhalation Q6H 30 days #4 04/27/21 mcg/actuation mist for inhalation grams (Combivent Respimat) dicyclomine 10 mg capsule 10 mg PO BID #60 caps 11/29/21 cyclobenzaprine 10 mg tablet 10 mg PO TID PRN muscle spasm 30 01/19/22 days #90 tabs bismuth subsalicylate 262 mg 2 tab PO QID 14 days #112 tabs 05/27/22 chewable tablet pantoprazole 20 mg tablet,delayed 20 mg PO DAILY 30 days #30 tabs 08/19/22 release Allergies Allergy/AdvReac Type Severity Reaction Status Date / Time ibuprofen Allergy Intermediate GI Bleeding Verified 09/16/22 13:06 Review of Systems Review of Systems: Yes all other systems are reviewed and are negative [facility] Past Medical History Medical History Asthma Chest pain AYLIN (generalized anxiety disorder) History of COVID-19 Low back pain Melena Mild recurrent major depression Overweight (BMI 25.0-29.9) Pulmonary nodules Surgical History History of ear surgery History of esophagogastroduodenoscopy (EGD) History of lipoma History of surgery History of tonsillectomy Hx of colonoscopy Family History Family History Father Hypertension Mother Diabetes Paternal Grandfather Colon cancer Family/Other FH: mental illness Social History Social History Housing: House Are you a primary health care administrator to a significant other at home: No Do you presently have visiting nurse or other home services: No Alcohol intake: current Alcohol intake frequency: a few times a month Alcohol type: wine and hard liquor Patient Tobacco Use Status: Current everyday Tobacco user Tobacco use type: Cigarette Cigarettes Per Day: 2 Years Smoked: 20 Smoked in Last 30 Days: No e-Cigarette/Vaping Use: Never Used Second Hand Smoke Exposure: No Substance Use Type: Marijuana Substance Use Frequency: Chronic Longstanding Advance Directives: No Advance Directives Information Provided: No service: No Current occupational status: employed Current occupational exposures/hazards: No Cognitive needs: No Hearing needs: No Vision needs: No Physical Exam ED Vital Signs: Vital Signs - 24 hr 09/16/22 13:06 09/16/22 14:26 Temperature 97.8 F Pulse Rate 68 113 H Respiratory Rate 16 18 Blood Pressure 139/100 H 138/89 Pulse Oximetry 98 98 Oxygen Delivery Method Room Air Room Air BMI result Body Mass Index 28.2 Appearance: Alert. Oriented X3. No acute distress. Eyes: PERRLA, No Nystagmus ENT: Pharynx normal. Oral Mucosa moist Neck: Normal inspection. Neck supple. CVS: Normal heart rate and rhythm. Pulses normal. Respiratory: No respiratory distress. Equal air entry bilateral, no wheezing/rales/rhonchi Abdomen: Soft and nontender. Bowel sounds are present, no mass palpable, no CVA tenderness Skin: Skin warm and dry. Normal skin color. Normal skin turgor. Extremities: No lower extremity edema. No calf tenderness Neuro: Oriented X 3. No motor deficit. No sensory deficit.No cerebellar signs , cranial nerves II-XII intact Course Course Course Narrative: This is an RME: Additional HPI, ROS, PE not included below will be deferred to primary provider. This is a 47-year-old male, with a past medical history of PTSD, presenting to the emergency department for evaluation of left shoulder pain and chest pain for the last week and a half. Pain has been progressively getting worse. On examination when pointing to his pain he is pointing to his left anterior chest wall mild tenderness palpation in this region. VSS. Plan: Labs, EKG, chest x-ray, left shoulder xray ordered. Medical Decision Making Medical Decision Making [facility] Narrative: Patient PTSD/anxiety 2 sets of cardiac enzymes negative with atypical left arm pain without any Ekg changes heart score of 0 will discharge patient home advised to follow with PCP further evaluation Lab Data [facility] Lab Attestation statement: I reviewed the patient's lab results. 09/16/22 13:02 09/16/22 13:02 Labs: Lab Results 09/16/22 09/16/22 09/16/22 Range/Units 13:02 13:02 13:02 WBC 9.1 (4.8-10.8) X10*3/uL RBC 4.84 (4.60-5.80) X10*6/uL Hgb 15.0 (14.0-18.0) g/dl Hct 44.6 (42.0-52.0) % MCV 92.1 (80.0-98.0) fL MCH 31.0 (27.0-33.0) pg MCHC 33.6 (31.0-36.0) g/dl RDW 11.6 (11.0-16.0) % Plt Count 227 (160-400) X10*3/uL MPV 11.1 (9.4-12.4) fL Immature Gran % (Auto) 0.4 (0.0-0.4) % Neut % (Auto) 55.0 (45-73) % Lymph % (Auto) 31.7 (20-40) % [place] % (Auto) 10.2 (2-11) % Eos % (Auto) 1.8 (0-4) % Baso % (Auto) 0.9 (0-2) % Lymph # (Auto) 2.9 (1.2-4.9) X10*3/uL [place] # (Auto) 0.9 (0.1-1.2) X10*3/uL Eos # (Auto) 0.2 (0.0-0.4) X10*3/uL Baso # (Auto) 0.1 (0.0-0.2) X10*3/uL Abs Immat Gran (auto) 0.04 H (0.00-0.03) X10*3/uL Absolute Neuts (auto) 5.0 (2.0-8.3) x10*3/uL Absolute Nucleated RBC 0.000 (0.0-0.012) X10*3/uL Nucleated RBC % (auto) 0.0 (0.0-0.2) /100WBC Sodium 138 (135-145) mmol/L Potassium 4.6 (3.3-5.1) mmol/L Chloride 108 (96-108) mmol/L Carbon Dioxide 20 L (22-29) mmol/L Anion Gap 15 (12-20) BUN 9 (9-16) mg/dL Creatinine 0.92 (0.5-1.4) mg/dL Estim Creat Clear Calc 115.7 Estimated GFR > 60 Random Glucose 93 (60-115) mg/dL Calcium 9.6 (8.4-10.2) mg/dL Total Bilirubin 0.7 (0.0-1.0) mg/dL AST 22 (5-37) U/L ALT 25 (0-40) U/L Alkaline Phosphatase 72 (39-117) U/L Troponin I High Sens < 2.7 (<3.5-35.0) ng/L Total Protein 6.9 (6.5-8.0) g/dL Albumin 4.3 (3.5-5.0) g/dL 09/16/22 Range/Units 15:22 WBC (4.8-10.8) X10*3/uL RBC (4.60-5.80) X10*6/uL Hgb (14.0-18.0) g/dl Hct (42.0-52.0) % MCV (80.0-98.0) fL MCH (27.0-33.0) pg MCHC (31.0-36.0) g/dl RDW (11.0-16.0) % Plt Count (160-400) X10*3/uL MPV (9.4-12.4) fL Immature Gran % (Auto) (0.0-0.4) % Neut % (Auto) (45-73) % Lymph % (Auto) (20-40) % [place] % (Auto) (2-11) % Eos % (Auto) (0-4) % Baso % (Auto) (0-2) % Lymph # (Auto) (1.2-4.9) X10*3/uL [place] # (Auto) (0.1-1.2) X10*3/uL Eos # (Auto) (0.0-0.4) X10*3/uL Baso # (Auto) (0.0-0.2) X10*3/uL Abs Immat Gran (auto) (0.00-0.03) X10*3/uL Absolute Neuts (auto) (2.0-8.3) x10*3/uL Absolute Nucleated RBC (0.0-0.012) X10*3/uL Nucleated RBC % (auto) (0.0-0.2) /100WBC Sodium (135-145) mmol/L Potassium (3.3-5.1) mmol/L Chloride (96-108) mmol/L Carbon Dioxide (22-29) mmol/L Anion Gap (12-20) BUN (9-16) mg/dL Creatinine (0.5-1.4) mg/dL Estim Creat Clear Calc Estimated GFR Random Glucose (60-115) mg/dL Calcium (8.4-10.2) mg/dL Total Bilirubin (0.0-1.0) mg/dL AST (5-37) U/L ALT (0-40) U/L Alkaline Phosphatase (39-117) U/L Troponin I High Sens < 2.7 (<3.5-35.0) ng/L Total Protein (6.5-8.0) g/dL Albumin (3.5-5.0) g/dL Independent Interpretation I performed an independent interpretation of an: EKG Interpretation: Normal sinus rhythm heart rate 65 beats per minute normal interval normal axis no acute ST-T no acute ischemia Discharge Plan Discharge Clinical Impression: Chest pain Patient Disposition: Home, Self-Care Instructions: Chest Pain (ED) Additional Instructions: Your pain is unlikely from the heart follow-up with your PCP for evaluation Prescriptions: No Action Combivent Respimat 20-100 mcg/actuation mist 1 puff inhalation Q6H 30 Days Qty: 4 1RF cyclobenzaprine 10 mg tablet 10 mg PO TID PRN (Reason: muscle spasm) 30 Days Qty: 90 0RF dicyclomine 10 mg capsule 10 mg PO BID Qty: 60 1RF bismuth subsalicylate 262 mg tablet,chewable 2 tab PO QID 14 Days Qty: 112 0RF quetiapine 50 mg tablet 50 mg PO BEDTIME bupropion HCl 150 mg tablet extended release 24 hr 150 mg PO QAM buspirone 5 mg tablet 5 mg PO TID pantoprazole 20 mg tablet,delayed release (DR/EC) 20 mg PO DAILY 30 Days Qty: 30 3RF Rx Instructions: start after doing h pylori breath test
[2022-09-16 13:29] LABS: Alanine Aminotransferase 25 U/L (0-40); Albumin Level 4.3 g/dL (3.5-5.0); Alkaline Phosphatase 72 U/L (39-117); Anion Gap 15 (12-20); Aspartate Amino Transferase 22 U/L (5-37); Bilirubin Total 0.7 mg/dL (0.0-1.0); Blood Urea Nitrogen 9 mg/dL (9-16); Calcium 9.6 mg/dL (8.4-10.2); Carbon Dioxide 20 mmol/L (22-29); Chloride 108 mmol/L (96-108); Creatinine Clr Calc Pharmacy 115.7; Estimated Glomerular Filt Rate > 60; Glucose Random 93 mg/dL (60-115); Potassium 4.6 mmol/L (3.3-5.1); Sodium 138 mmol/L (135-145); Total Protein 6.9 g/dL (6.5-8.0)
[2022-09-16 13:37] LABS: Troponin-I High Sensitivity < 2.7 ng/L (<3.5-35.0)
[2022-09-16 14:26] VITALS: BP 138/89; PULSE 113; RESP 18; O2SAT 98
--- NOTE | 2022-09-16 14:34 | PC.NURSE ---
Alert and oriented , started with 10/10 left sided chest pain this afternoon while at work arounf 12:15. also became lightheaded and almost passed out. was diaphoretic when he started to feel better. States history of anxiety but nothing has ever happened like this before. NSR on monitor. PERRLA. has been eating and drinking well. Denies any other pain, states some SOB and some dizziness. has a headache normally but seemed worse this week. NSR on monitor. Took 1 aspirin prior to arrival that he feels like helped improve the pain. pain is currently a 6/10.
[2022-09-16 16:01] LABS: Troponin-I High Sensitivity < 2.7 ng/L (<3.5-35.0)
[2022-09-16 16:11] VITALS: BP 137/94; PULSE 65; RESP 13; O2SAT 98
== END 2022-09-16 16:15 | disposition home or self-care (01) ==
PROVIDERS: Emergency Provider Internal Medicine; PCP Internal Medicine
DX: R07.89 Other chest pain (principal); M25.512 Pain in left shoulder; F17.210 Nicotine dependence, cigarettes, uncomplicated; Z79.899 Other long term (current) drug therapy
CPT/HCPCS: 36415; 71046; 73030; 80053; 84484; 85025; 93005; 99283; 99285

== ENCOUNTER → 2022-09-23 08:56 | Outpatient (BNVA) | payer MEDICARE, MEDICAID, SELFPAY | PROVIDERS: PCP Internal Medicine; Visit Provider Internal Medicine Gastroenterology | DX: Z11.0 Encounter for screening for intestinal infectious diseases (principal) | CPT/HCPCS: 83013; 99211 ==

== ENCOUNTER 2022-09-23 15:49 | Outpatient (REF) | payer MEDICARE, MEDICAID, SELFPAY ==
[2022-09-24 12:37] LABS: H Pylori Breath Test Positive (Negative)
== END 2022-09-23 15:50 | disposition home or self-care (01) ==
LOC: HO.LNP 15:49
PROVIDERS: Visit Provider Internal Medicine Gastroenterology
DX: Z13.89 Encounter for screening for other disorder (principal)
CPT/HCPCS: 83013

== ENCOUNTER 2022-10-21 10:20 | Outpatient (AMB) | payer MEDICARE, MEDICAID, SELFPAY ==
[2022-10-21 10:31] VITALS: BP 130/80; PULSE 80; TEMP 36.6; O2SAT 98
--- NOTE | 2022-10-21 10:31 | MHC.OFFWIV ---
Intake Vital Signs 10/21/22 10:31 Height 6 ft BP 130/80 Blood Pressure Location Lt brachial Position Sitting Pulse 80 Pulse Source Pulse Oximeter Temp 97.9 F Temp Source Temporal Artery Scan Pulse Oximetry (%) 98 Intake Visit Reasons: EST/ left knee pain Intake Note: pt is here for left knee pain, felt a strong pop Patient Tobacco Use Status: Current everyday Tobacco user Allergies ibuprofen Allergy (Intermediate, Verified 10/21/22 11:12) GI Bleeding Medication List - Last Reconciled 10/21/22 by Giovani Coleman MD bismuth subsalicylate 2 tabs PO QID 14 days bupropion HCl 150 mg PO QAM buspirone 5 mg PO TID cyclobenzaprine 10 mg PO TID PRN 30 days dicyclomine 10 mg PO BID ipratropium-albuterol 20-100 mcg/actuation (Combivent Respimat) 1 puff inhalation Q6H 30 days pantoprazole 20 mg PO DAILY 30 days quetiapine 50 mg PO BEDTIME Do you need a note to return to daycare/school/sports/work: Yes HPI EST/ left knee pain HPI Details 47-year-old male presents to the office for a sick visit. Patient has 2 problems, He is reporting intense pain and discomfort in the left knee for the past 2 weeks. Symptoms started before he left for [place]. He felt a 'pop' sensation when he was lifting a heavy load. Subsequently he is having trouble climbing and coming down stairs. Patient is walking with a limp. He would also like to get a swelling on the right side of the neck evaluated. He noticed it a couple of weeks ago. Not painful. [facility] Medical History Asthma Chest pain AYLIN (generalized anxiety disorder) History of COVID-19 Low back pain Melena Mild recurrent major depression Overweight (BMI 25.0-29.9) Pulmonary nodules Surgical History History of ear surgery History of esophagogastroduodenoscopy (EGD) History of lipoma History of surgery History of tonsillectomy Hx of colonoscopy Family History Father Hypertension Mother Diabetes Paternal Grandfather Colon cancer Family/Other FH: mental illness Social History Housing: House Are you a primary ambulatory care coordinator to a significant other at home: No Do you presently have visiting nurse or other home services: No Alcohol intake: current Alcohol intake frequency: a few times a month Alcohol type: wine and hard liquor Patient Tobacco Use Status: Current everyday Tobacco user Tobacco use type: Cigarette Cigarettes Per Day: 2 Years Smoked: 20 e-Cigarette/Vaping Use: Never Used Second Hand Smoke Exposure: No Substance Use Type: Marijuana service: No Current occupational status: employed Current occupational exposures/hazards: No Cognitive needs: No Hearing needs: No Vision needs: No Physical Exam Vital Signs: Last Vital Signs Temp 97.9 F 10/21/22 10:31 Pulse 80 10/21/22 10:31 BP 130/80 10/21/22 10:31 Pulse Ox 98 10/21/22 10:31 Const General: cooperative and healthy appearing Nutritional Appearance: well nourished Orientation/consciousness: patient oriented x3 Limitations: no limitations HEENT Head: Yes normal to inspection Eyes General: appearance normal, both eyes and all related structures Neck Neck: Yes normal visual inspection Chest Chest palpation & inspection: normal palpation of entire chest wall Resp Effort & Inspection: normal respiratory effort Neuro General: patient oriented x3 Extrem Other: Left knee: Minimal joint line discomfort. Swelling over the prepatellar area. Pain on extension of the knee. Right supraclavicular for sh: From swelling with indistinct margins present. Nontender to touch. Not movable. Assessment & Plan Assessment & Plan (1) Sprain of left knee/leg: Code(s): S83.92XA - Sprain of unspecified site of left knee, initial encounter Plan: X-rays of the knee has been ordered. Patient is going to [facility] to get [facility] done. Meloxicam called in to reduce inflammation. Knee brace provided. (2) Lipoma of neck: Code(s): D17.0 - Benign lipomatous neoplasm of skin and subcutaneous tissue of head, face and neck Plan: Ultrasound of the neck has been ordered. Will call with results. Orders: Orders XR knee LT 3V Today S83.92XA - Sprain of unspecified site of left knee, initial encounter US soft tiss head and/or neck Today D17.0 - Benign lipomatous neoplasm of skin and subcutaneous tissue of head, face and neck Medications: New meloxicam 15 mg PO DAILY 14 tabs 0RF Coding Level of Care Code Est Pt Level 4 (45964) Diagnoses Sprain of left knee/leg S83.92XA Lipoma of neck D17.0
== END 2022-10-21 11:36 | disposition home or self-care (01) ==
PROVIDERS: PCP Internal Medicine; Visit Provider Internal Medicine
DX: S83.92XA Sprain of unspecified site of left knee, initial encounter (principal); D17.0 Benign lipomatous neoplasm of skin and subcutaneous tissue of head, face and neck
CPT/HCPCS: 99214

== ENCOUNTER 2022-10-21 11:52 | Outpatient (REF) | payer MEDICARE, MEDICAID, SELFPAY ==
--- NOTE | ~2022-10-21 | XR_ITS ---
EXAMINATION: XR KNEE, LEFT CLINICAL INFORMATION: Strain of left knee. Injury working hard. . COMPARISON: None available. TECHNIQUE: Four views of the left knee. FINDINGS: No acute fracture or dislocation. Alignment is anatomic. Joint spaces are maintained. There is soft tissue calcification in the suprapatellar joint. No joint effusion noted. There is minimal anterior superior patellar spurring likely degenerative changes. XR/XR knee LT 3V IMPRESSION: Mild degenerative anterior superior patellar spurring. No acute fracture or dislocation. 6 mm soft tissue calcification in suprapatellar bursa with no joint effusion seen.
== END 2022-10-21 11:53 | disposition home or self-care (01) ==
LOC: HO.XRAY 11:52
PROVIDERS: PCP Internal Medicine; Visit Provider Internal Medicine
DX: S83.92XA Sprain of unspecified site of left knee, initial encounter (principal)
CPT/HCPCS: 73562

== ENCOUNTER 2022-11-01 14:51 | Outpatient (REF) | payer MEDICARE, MEDICAID, SELFPAY ==
--- NOTE | ~2022-11-01 | US_ITS ---
EXAMINATION: US SOFT TISSUE HEAD/NECK CLINICAL INFORMATION: Lipoma of neck, right neck swelling. COMPARISON: None available. TECHNIQUE: Linear transducer grayscale and color Doppler examination of the right shoulder into neck. FINDINGS: Targeted ultrasound images were obtained by the philosophy faculty of the area of concern as indicated by the patient in the right shoulder into neck region. Radiologist was not in attendance. Images were later provided for interpretation. In the area indicated by the patient in the right shoulder into neck, there is a 2.4 x 1.8 x 0.4 cm wider than tall, hypoechoic, well circumscribed mass with internal vascularity. US/US soft tiss head and/or neck IMPRESSION: There is a 2.4 cm hypoechoic mass in the area indicated by the patient in the right shoulder into neck. Decisions regarding further management including additional imaging such as MRI, treatment, surgical consultation and/or biopsy should be based on the clinical assessment. Low-grade liposarcomas may be sonographically indistinguishable from lipomas on ultrasound images. Recommend follow up ultrasound in 3-6 months.
== END 2022-11-01 14:52 | disposition home or self-care (01) ==
LOC: HO.US 14:51
PROVIDERS: PCP Internal Medicine; Visit Provider Internal Medicine
DX: D17.0 Benign lipomatous neoplasm of skin and subcutaneous tissue of head, face and neck (principal)
CPT/HCPCS: 76536

== ENCOUNTER 2022-11-10 12:00 | Outpatient (RCR) | payer MEDICARE, MEDICAID, SELFPAY ==
--- NOTE | 2022-10-14 12:18 | MHC.PT.EP ---
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 RECENT 09/16/22 LEFT SH XRAY WAS (-) BONY FINDINGS (PLEASE REFER TO ABOVE FOR FORMAL REPORT). OBJECTIVELY: DECR POSTURAL/ BODY MECH AWARENESS, DECR CERV AND Lt SH AROM, (+) STRENGTH DEFICITS(ESPEC ECCENTRIC) IN Lt SH / SCAPULAR COMPLEX, TIGHT ANT CHAIN TISSUES , (+) NEER'S Lt, AND FREQ LIMITING PAIN IN Lt SH. FUNCTIONALLY, Pt HAS DIFFIC LIFTING OBJECTS, REACHING OVERHEAD OR POSTERIORLY W LEFT UE, GENERAL ADLs REQ INCR AND PROLONGED Lt SH ACTIVATION AND EFFORT. HE WOULD BENEFIT FROM PT FOR POSSIBLE Lt SH IMPINGEMENT/ POSTURAL SYNDROME-> TO ADDRESS THE ABOVE SXS, MONITOR CERVICAL REGION/ RADIC SXS, PAIN MGMT, POSTURAL CORRECTION, AND SELF-SX MGMT TECHN. Frequency and Duration: The patient will be seen 2 x WK x 5 WKS Short Term Goals: *Pt'S LEFT SH / CERV PAIN DECR TO 2-06/17 *FULL AROM Lt SH AND IMPROVED CERV AROM *Pt INDEP SELF-CORRECT POSTURE TO REDUCE SH MECH STRESS Intermediate Goals: *Pt DEMON 3:3 SIMUL ADLs W PROPER , EFFICIENT BODY MECH *LEFT SH COMPLEX STRENGTH INCR BY AT LEAST 1 GRADE *Pt RESUME REG ADLs/ HOBBIES EVIDENT IMPROVED SPADI SCORE (AT EVAL 100/130) *Pt INDEP HEP PROGR AND SELF-SX MGMT STRATEGIES FOR Lt SH Treatment Plan: Modalities to reduce pain, spasms and effusion. Manual therapy to restore motion and function. Therapeutic exercise to improve strength and flexibility. Neuromuscular re-education for posture and balance. Therapeutic activities to return to functional activities of daily living. Electronically signed by: MARIAMA JOHANSEN,PT Please sign and return to therapist. Thank you for your referral.
== END 2023-02-06 14:27 | disposition home or self-care (01) ==
LOC: HO.PT 12:00
PROVIDERS: PCP Internal Medicine; Visit Provider Internal Medicine
DX: M25.512 Pain in left shoulder (principal)
CPT/HCPCS: 97035; 97110; 97140; 97162; 97530

== ENCOUNTER 2022-12-08 08:32 | Outpatient (AMB) | payer MEDICARE, MEDICAID, SELFPAY ==
--- NOTE | 2022-12-08 08:45 | A.OFFVIS_ITS ---
Intake Vital Signs 12/08/22 08:56 Height 6 ft Weight 214 lb BMI 29.0 BP 179/102 H Blood Pressure Location Lt brachial Position Sitting Pulse 69 Intake Visit Reasons: lipoma of neck Intake Note: Patient is seen in office for evaluation and treatment of a lipoma of the neck. 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: No Accompanied by: Self / Same As Patient Allergies ibuprofen Allergy (Intermediate, Verified 12/08/22 08:55) GI Bleeding Medication List - Last Reconciled 12/08/22 by Newton Taveras MD bismuth subsalicylate 2 tabs PO QID 14 days bismuth subsalicylate 2 tabs PO QID 14 days bupropion HCl 150 mg PO QAM buspirone 5 mg PO TID cyclobenzaprine 10 mg PO TID PRN 30 days dicyclomine 10 mg PO BID ipratropium-albuterol 20-100 mcg/actuation (Combivent Respimat) 1 puff inhalation Q6H 30 days meloxicam 15 mg PO DAILY metronidazole 250 mg PO QID 14 days omeprazole 20 mg PO BID 14 days pantoprazole 20 mg PO DAILY 30 days quetiapine 50 mg PO BEDTIME tetracycline 500 mg PO QID 14 days HPI HPI Comments History of Present Illness Details 47-year-old male patient presenting with a raise soft tissue mass noted several months ago in the right neck. Since 1st being identified he denies any significant changes in the size or shape of the lesion. He denies any pain, redness or discharge. Lesion was felt to be a lipoma the patient would prefer to have the lesion removed. [facility] Medical History Asthma Chest pain AYLIN (generalized anxiety disorder) History of COVID-19 Low back pain Mass of joint of right shoulder Melena Mild recurrent major depression Overweight (BMI 25.0-29.9) Pulmonary nodules Surgical History History of ear surgery History of esophagogastroduodenoscopy (EGD) History of lipoma History of surgery History of tonsillectomy Hx of colonoscopy Family History Father Hypertension Mother Diabetes Paternal Grandfather Colon cancer Family/Other FH: mental illness Social History Housing: House Are you a primary continuum of care manager to a significant other at home: No Do you presently have visiting nurse or other home services: No Alcohol intake: current Alcohol intake frequency: a few times a month Alcohol type: wine and hard liquor Patient Tobacco Use Status: Current everyday Tobacco user Tobacco use type: Cigarette Cigarettes Per Day: 2 Years Smoked: 20 e-Cigarette/Vaping Use: Never Used Second Hand Smoke Exposure: No Substance Use Type: Marijuana service: No Current occupational status: employed Current occupational exposures/hazards: No Cognitive needs: No Hearing needs: No Vision needs: No Review of Systems Const All systems reviewed & are unremarkable except as noted in HPI and below Denies chills, Denies fever(s), Denies headache(s), Denies poor appetite and Denies weakness ENT Denies headache(s) Card Denies chest pain, Denies irregular heart rhythm, Denies palpitations and Denies dyspnea Resp Denies cough, Denies excessive phlegm production and Denies dyspnea GI Denies abdominal pain, Denies bloating, Denies change in bowel habits, Denies constipation, Denies heartburn, Denies diarrhea, Denies nausea and Denies vomiting Denies difficulty urinating and Denies urinary frequency Musc Denies back pain, Denies muscle weakness and Denies numbness Skin/Breast Reports as per HPI, Denies changing lesions and Denies unusual bruising Neuro Denies headache(s), Denies numbness, Denies paresthesias and Denies weakness Psych Denies anxiety and Denies depression Endo Denies palpitations Yaw/Lymph Denies lymphadenopathy Physical Exam Vital Signs: Last Vital Signs Pulse 69 12/08/22 08:56 BP 179/102 H 12/08/22 08:56 BMI result Body Mass Index 29.0 Const General: cooperative and no acute distress Nutritional Appearance: well nourished Orientation/consciousness: patient oriented x3 Limitations: no limitations HEENT Head: Yes normocephalic and Yes atraumatic Ears: hearing grossly normal bilaterally Chest Chest/axillae images: 2 1. 4 cm soft tissue subcutaneous mass mobile within the subcutaneous tissue consistent with a lipoma. No overlying skin changes appreciated. Resp Effort & Inspection: normal respiratory effort, no audible wheezes, no cough and no respiratory distress Cardio Jugular venous distension: no JVD GI Inspection: Yes normal to inspection Skin Other: Warm, dry, no rash Neuro General: patient oriented x3 Extrem General: Yes no clubbing, cyanosis or edema Assessment & Plan Assessment & Plan (1) Mass of skin of right shoulder: Code(s): R22.31 - Localized swelling, mass and lump, right upper limb Plan 47-year-old male patient presenting with a soft tissue mass located in the right shoulder/neck in the supraclavicular region measuring approximately 4 cm in diameter. Patient has requested excision and after discussion of the procedure, risks, and alternatives, he consents to the surgery (excision of right neck lipoma). This will be scheduled as a minor surgery. Coding Level of Care Code New Pt Level 4 (95272) Diagnoses Mass of skin of right shoulder R22.31
[2022-12-08 08:56] VITALS: BP 179/102; PULSE 69; BMI 29.0
== END 2022-12-08 09:19 | disposition home or self-care (01) ==
PROVIDERS: PCP Internal Medicine; Visit Provider Surgery
DX: R22.31 Localized swelling, mass and lump, right upper limb (principal)
CPT/HCPCS: 99204

== ENCOUNTER → 2022-12-08 08:32 | Outpatient (BNVA) | payer MEDICARE, MEDICAID, SELFPAY | PROVIDERS: PCP Internal Medicine; Visit Provider Surgery | DX: R22.31 Localized swelling, mass and lump, right upper limb (principal) | CPT/HCPCS: 99202 ==

== ENCOUNTER 2022-12-27 10:45 | Outpatient (REF) | payer MEDICARE, MEDICAID, SELFPAY ==
[2022-12-27 10:57] VITALS: BMI 28.1
[2022-12-27 10:59] VITALS: BP 158/97; PULSE 65; RESP 16; TEMP 36.2; O2SAT 98
[2022-12-27 11:24] VITALS: BP 151/93; PULSE 68; RESP 16; O2SAT 97
--- NOTE | 2022-12-27 11:30 | W.PM.OPN ---
Operative Note Operative Note Date of Service: 12/27/22 Narrative: Preoperative diagnosis: Lipoma right neck Postoperative diagnosis: Same Procedure: Excision of lipoma right neck Surgeon: Newton Taveras MD Bottling Supervisor: None Anesthesia: Local Sensorcaine 0.5% with epinephrine Indications for procedure: 47-year-old male patient with prior history of lipomas presenting with an enlarging lipoma of the right neck confirmed by ultrasound. On examination lipoma measures approximately 3 cm in diameter. Operative findings: 3 cm lipoma right neck/supraclavicular region Specimen: Lipoma right neck Estimated blood loss: Less than 1 mL Complications: None Procedure details: Patient was brought to the minor surgery suite and placed in a supine position. The site of surgery was confirmed by the patient in the right back at the supraclavicular region. After assuring informed consent the skin was prepped with Betadine and draped in a sterile fashion. Local anesthesia was infiltrated in longitudinal fashion over the lipoma. Incision was then made with a scalpel and carried out through subcutaneous tissue. Lipoma was then dissected from the surrounding subcutaneous tissue. This was passed off table and sent to pathology for further examination. Dermis was then reapproximated using an interrupted 4-0 Polysorb suture. Skin was closed using a running subcuticular 4-0 Polysorb suture. Steri-Strips and 2 x 2 gauze were then applied. This was followed by Tegaderm dressing. The patient tolerated the procedure well. He was discharged in stable condition.
== END 2022-12-27 10:46 | disposition home or self-care (01) ==
LOC: HO.MS 10:45
PROVIDERS: PCP Internal Medicine; Visit Provider Surgery
PROC: (CPT 11423; principal; 2022-12-27 13:00)
DX: D17.0 Benign lipomatous neoplasm of skin and subcutaneous tissue of head, face and neck (principal)
CPT/HCPCS: 11423; 88304

== ENCOUNTER → 2022-12-27 10:45 | Outpatient (BNV) | payer MEDICARE, MEDICAID, SELFPAY | PROVIDERS: PCP Internal Medicine; Visit Provider Surgery | DX: D17.0 Benign lipomatous neoplasm of skin and subcutaneous tissue of head, face and neck (principal) | CPT/HCPCS: 21555 ==

== ENCOUNTER 2023-01-03 09:12 | Outpatient (AMB) | payer MEDICARE, MEDICAID, SELFPAY ==
--- NOTE | 2023-01-03 09:25 | MHC.OFFVIS ---
Intake Vital Signs 01/03/23 09:26 Height 6 ft Weight 212 lb 8.41 oz BMI 28.8 BP 110/70 Blood Pressure Location Lt brachial Position Sitting Intake Visit Reasons: s/p excision rt neck lipoma Intake Note: Patient is seen in office for post op assessment post excision of a right neck lipoma. Patient c/o: denies any concerns regarding the incision Director Professional Services Required: No Accompanied by: Self / Same As Patient Allergies ibuprofen Allergy (Intermediate, Verified 01/03/23 09:32) GI Bleeding Medication List - Last Reconciled 01/03/23 by Newton Taveras MD bismuth subsalicylate 2 tabs PO QID 14 days bismuth subsalicylate 2 tabs PO QID 14 days bupropion HCl 150 mg PO QAM buspirone 5 mg PO TID cyclobenzaprine 10 mg PO TID PRN 30 days dicyclomine 10 mg PO BID ipratropium-albuterol 20-100 mcg/actuation (Combivent Respimat) 1 puff inhalation Q6H 30 days meloxicam 15 mg PO DAILY metronidazole 250 mg PO QID 14 days omeprazole 20 mg PO BID 14 days pantoprazole 20 mg PO DAILY 30 days quetiapine 50 mg PO BEDTIME tetracycline 500 mg PO QID 14 days HPI HPI Comments History of Present Illness Details 47-year-old male patient returning 1 week following excision of a lipoma of the right neck. He tolerated procedure well and denies any ongoing symptoms. Pathology confirmed a lipoma. [facility] Medical History Mass of joint of right shoulder History of COVID-19 Asthma Melena AYLIN (generalized anxiety disorder) Mild recurrent major depression Overweight (BMI 25.0-29.9) Chest pain Low back pain Pulmonary nodules Surgical History S/P excision of lipoma (12/27/22) Hx of colonoscopy History of esophagogastroduodenoscopy (EGD) History of surgery History of lipoma History of tonsillectomy History of ear surgery Family History Father Hypertension Mother Diabetes Paternal Grandfather Colon cancer Family/Other FH: mental illness Social History Housing: House Are you a primary veterinarian laboratory animal care to a significant other at home: No Do you presently have visiting nurse or other home services: No Alcohol intake: current Alcohol intake frequency: a few times a month Alcohol type: wine and hard liquor Patient Tobacco Use Status: Current everyday Tobacco user Tobacco use type: Cigarette Cigarettes Per Day: 2 Years Smoked: 20 e-Cigarette/Vaping Use: Never Used Second Hand Smoke Exposure: No Substance Use Type: Marijuana service: No Current occupational status: employed Current occupational exposures/hazards: No Cognitive needs: No Hearing needs: No Vision needs: No Physical Exam Vital Signs: Last Vital Signs BP 110/70 01/03/23 09:26 BMI result Body Mass Index 28.8 Const General: healthy appearing Nutritional Appearance: well nourished Orientation/consciousness: patient oriented x3 Neck Other: Excision site in the right neck/supraclavicular region is clean, dry, and intact without redness or discharge. There is slight fullness suggestive of underlying scar tissue. Neuro General: patient oriented x3 Extrem Other: No peripheral edema. Assessment & Plan Assessment & Plan (1) Lipoma of neck: Code(s): D17.0 - Benign lipomatous neoplasm of skin and subcutaneous tissue of head, face and neck Plan 47-year-old male returning 1 week following excision of lipoma. He tolerated the procedure well and his wounds are well healed. Pathology confirmed a lipoma. He should follow up as needed. Coding Level of Care Code Global (24502) Diagnoses Lipoma of neck D17.0
[2023-01-03 09:26] VITALS: BP 110/70; BMI 28.8
== END 2023-01-03 09:49 | disposition home or self-care (01) ==
PROVIDERS: PCP Internal Medicine; Visit Provider Surgery
DX: D17.0 Benign lipomatous neoplasm of skin and subcutaneous tissue of head, face and neck (principal)
CPT/HCPCS: 99024

== ENCOUNTER → 2023-01-03 09:12 | Outpatient (BNVA) | payer MEDICARE, MEDICAID, SELFPAY | PROVIDERS: PCP Internal Medicine; Visit Provider Surgery ==

== ENCOUNTER 2023-11-01 08:48 | Outpatient (AMB) | payer MEDICARE, MEDICAID, SELFPAY ==
[2023-11-01 09:27] VITALS: BP 118/72; PULSE 75; TEMP 36.8; O2SAT 97
--- NOTE | 2023-11-01 09:27 | AM.OFFWIN_ITS ---
Intake Vital Signs 11/01/23 09:27 Height 6 ft BP 118/72 Blood Pressure Location Lt brachial Position Sitting Pulse 75 Pulse Source Pulse Oximeter Temp 98.2 F Temp Source Temporal Artery Scan Pulse Oximetry (%) 97 Intake Visit Reasons: EP LT side pain rib/back Intake Note: pt is here for left side pain, rib and back pain Patient Tobacco Use Status: Current everyday Tobacco user Allergies ibuprofen Allergy (Intermediate, Verified 11/01/23 09:29) GI Bleeding Do you need a note to return to daycare/school/sports/work: No HPI HPI Comments History of Present Illness Details 48 yo male patient who presents to walk in clinic with c/o SOB, chest pain and dry persitent cough for over 1 year. He was seen by Pulmonology back in 2019. He was diagnosed then with Mild Asthma and was put on Advair with good symptom relief. Pt reports 2 episodes of Black Tar) sputum. H/o 30 years cigarette smoking, he just quit ~ 1 month ago. Denies fevers, chills, nausea or vomiting. He has an Appointment with PCP in February/ Pt does not want to wait that long. CT Scan Chest: 04/2020 IMPRESSION: Stable small calcified and noncalcified pulmonary nodules. Slight elevation of the right hemidiaphragm. No cause of hemoptysis seen. [facility] Medical History (Updated 11/01/23 @ 10:12 by Tierra Adamson NP) Mass of joint of right shoulder History of COVID-19 Asthma Melena AYLIN (generalized anxiety disorder) Mild recurrent major depression Overweight (BMI 25.0-29.9) Chest pain Low back pain Pulmonary nodules Surgical History S/P excision of lipoma (12/27/22) Hx of colonoscopy History of esophagogastroduodenoscopy (EGD) History of surgery History of lipoma History of tonsillectomy History of ear surgery Family History Father Hypertension Mother Diabetes Paternal Grandfather Colon cancer Family/Other FH: mental illness Social History Housing: House Are you a primary overnight caregiver to a significant other at home: No Do you presently have visiting nurse or other home services: No Alcohol intake: current Alcohol intake frequency: a few times a month Alcohol type: wine and hard liquor Patient Tobacco Use Status: Current everyday Tobacco user Tobacco use type: Cigarette Cigarettes Per Day: 2 Years Smoked: 20 e-Cigarette/Vaping Use: Never Used Second Hand Smoke Exposure: No Substance Use Type: Marijuana service: No Current occupational status: employed Current occupational exposures/hazards: No Cognitive needs: No Hearing needs: No Vision needs: No Review of Systems Const All systems reviewed & are unremarkable except as noted in HPI and below Physical Exam Vital Signs: Last Vital Signs Temp 98.2 F 11/01/23 09:27 Pulse 75 11/01/23 09:27 BP 118/72 11/01/23 09:27 Pulse Ox 97 11/01/23 09:27 Const General: comfortable and no acute distress Orientation/consciousness: patient oriented x3 HEENT Head: Yes normocephalic Ears: external ears normal and TM's normal bilaterally General nose exam: Normal nasal mucous membranes and turbinates present Face and sinus: Yes sinuses nontender Mouth: moist mucous membranes Throat: Yes postnasal drainage Resp Effort & Inspection: normal respiratory effort and able to speak in complete sentences Auscultation: clear to auscultation bilaterally, no crackles, no rales, no rhonchi and no wheezes Cardio Heart sounds: S1 normal heart sound present and S2 normal heart sound present Neuro General: patient oriented x3 Assessment & Plan Assessment & Plan (1) Chest pain on respiration: Code(s): R07.1 - Chest pain on breathing Plan: Ordered ECG with Sinus Rhythm Ordered Chest Xray today. (2) Mild persistent asthma: Code(s): J45.30 - Mild persistent asthma, uncomplicated Qualifiers: Asthma complication type: unspecified Qualified Code(s): J45.30 - Mild persistent asthma, uncomplicated Plan: Advised to f/u with Pulmonology. Will ask PCP to place a referral. Ordered Advair for BID use. Orders: Orders AMB EKG-In Office Today R07.1 - Chest pain on breathing XR chest 2V Today R07.1 - Chest pain on breathing Medications: New fluticasone propion-salmeterol 115-21 mcg/actuation (Advair HFA) 2 puffs inhalation BID 12 grams 0RF J45.30 - Mild persistent asthma, uncomplicated Coding Level of Care Code Est Pt Level 4 (60304) Diagnoses Chest pain on respiration R07.1 Mild persistent asthma, unspecified whether complicated J45.30 Asthma complication type: unspecified Time Spent (min) 20
== END 2023-11-01 10:27 | disposition home or self-care (01) ==
PROVIDERS: PCP Internal Medicine; Visit Provider Nurse Practitioner Family
DX: R07.1 Chest pain on breathing (principal); J45.30 Mild persistent asthma, uncomplicated
CPT/HCPCS: 99214

== ENCOUNTER 2023-11-01 10:06 | Outpatient (REF) | payer MEDICARE, MEDICAID, SELFPAY ==
--- NOTE | ~2023-11-01 | XR_ITS ---
EXAMINATION: XR CHEST CLINICAL INFORMATION: Chest pain COMPARISON: 09/16/2022 TECHNIQUE: 2 views of the chest were obtained. FINDINGS: Lungs are well-inflated and clear. Trachea is midline in position. No interstitial disease, consolidation or mass. No pleural effusion or pneumothorax. Cardiac silhouette and pulmonary vessels are normal in size. The mediastinum and jj have normal contour. The right hemidiaphragm is chronically mildly elevated. The visualized bones and upper abdomen are unremarkable. XR/XR chest 2V IMPRESSION: No acute cardiopulmonary abnormality.
== END 2023-11-01 10:07 | disposition home or self-care (01) ==
LOC: HO.HMGCX 10:06
PROVIDERS: PCP Internal Medicine; Visit Provider Nurse Practitioner Family
DX: R07.1 Chest pain on breathing (principal)
CPT/HCPCS: 71046

== ENCOUNTER 2023-11-20 14:55 | Outpatient (AMB) | payer MEDICARE, MEDICAID, SELFPAY ==
--- NOTE | 2023-11-20 14:58 | MHC.OFFVIS ---
Vital Signs 11/20/23 14:59 Height 6 ft Weight 219 lb 5.759 oz BMI 29.7 BP 110/72 Blood Pressure Location Rt brachial Position Sitting Pulse 73 Pulse Source Pulse Oximeter Pulse Oximetry (%) 98 Oxygen Delivery Method Room Air Intake Visit Reasons: Dyspnea Allergies ibuprofen Allergy (Intermediate, Verified 11/20/23 15:03) GI Bleeding HPI HPI Dyspnea: Details: Lokesh is a pleasant 48 year old male, former smoker, recently quit 6 months ago with 30+ pack year history, with underlying asthma. He was referred by PCP for pulmonary evaluation. He reports dyspnea on exertion that has been more notable over the last year with associated pleuritic chest pain. He also notes productive cough with greyish sputum. He was recently seen at [facility] urgent care, CXR/EKG unremarkable and placed on Advair 115 mcg with moderate improvement in symptoms. He reports asthma diagnosed as a teen, never requiring intubations. He reports multiple environmental allergies. No recent allergy testing. He reports brother with h/o asthma and allergies. Of note, he goes deep diving annually, however this year (few months ago) he had significant difficulties with dyspnea, persistent coughing and small volume hemoptysis when coming to the surface. He denies any recent hemoptypsis, however continues with significant chest pain and dyspnea. No personal or family history of DVT/PE. [facility] Medical History (Updated 11/20/23 @ 15:29 by Carol Cristobal NP) Mass of joint of right shoulder History of COVID-19 Asthma Melena AYLIN (generalized anxiety disorder) Mild recurrent major depression Overweight (BMI 25.0-29.9) Chest pain Low back pain Pulmonary nodules Surgical History S/P excision of lipoma (12/27/22) Hx of colonoscopy History of esophagogastroduodenoscopy (EGD) History of surgery History of lipoma History of tonsillectomy History of ear surgery Family History Father Hypertension Mother Diabetes Paternal Grandfather Colon cancer Family/Other FH: mental illness Social History (Updated 11/20/23 @ 15:40 by Carol Cristobal NP) Housing: House Are you a primary child care attendant to a significant other at home: No Do you presently have visiting nurse or other home services: No Alcohol intake: current Alcohol intake frequency: a few times a month Alcohol type: wine and hard liquor Patient Tobacco Use Status: Former Tobacco user Tobacco use type: Cigarette Cigarette Packs Per Day: 1 Years Smoked: 30 e-Cigarette/Vaping Use: Never Used Second Hand Smoke Exposure: No Substance Use Type: Marijuana service: No Current occupational status: employed Current occupational exposures/hazards: No Cognitive needs: No Hearing needs: No Vision needs: No Review of Systems Const Denies chills, Denies excessive sweating, Denies fever(s), Denies headache(s) and Denies night sweats Eyes Denies dry eyes, Denies irritation and Denies itchy eyes ENT Reports Normal hearing present, Denies headache(s), Denies nasal congestion, Denies nasal discharge, Denies post nasal drip and Denies sore throat Card Reports chest pain, Reports chest pain at rest, Reports chest pain with activity, Denies claudication, Denies leg edema, Reports dyspnea on exertion, Denies orthopnea and Denies paroxysmal nocturnal dyspnea Resp Reports change in phlegm color, Denies chest congestion, Reports cough, Denies excessive phlegm production, Denies pain on inspiration, Denies pain with cough, Reports dyspnea on exertion, Denies stridor and Denies wheezing Musc Denies myalgias Neuro Reports Normal hearing present and Denies headache(s) Endo Denies excessive sweating Yaw/Lymph Denies lymphadenopathy Aller/Immun Denies itchy eyes, Denies seasonal rhinorrhea and Denies wheezing Physical Exam Vital Signs: Last Vital Signs Pulse 73 11/20/23 14:59 BP 110/72 11/20/23 14:59 Pulse Ox 98 11/20/23 14:59 Oxygen Delivery Method Room Air 11/20/23 14:59 BMI result Body Mass Index 29.7 Const General: cooperative, healthy appearing, comfortable, no acute distress, well developed and alert Nutritional Appearance: obese Orientation/consciousness: patient oriented x3 Limitations: no limitations HEENT Head: Yes normal to inspection, Yes normocephalic and Yes atraumatic Ears: hearing grossly normal bilaterally and external ears normal Eyes General: appearance normal, both eyes and all related structures Eyelids: Yes eyelids normal Sclerae: sclerae normal EOM: EOMs intact bilaterally Neck Neck: Yes normal visual inspection and Yes no lymphadenopathy Lymphatic: no lymphadenopathy noted Chest Chest palpation & inspection: normal inspection of the chest Resp Effort & Inspection: normal respiratory effort, able to speak in complete sentences, no audible wheezes, no cough, no stridor, not tachypneic, no tripod positioning and no use of accessory muscles Auscultation: clear to auscultation bilaterally Cardio Jugular venous distension: no JVD Rate: regular rate Rhythm: regular rhythm Skin Other: warm, dry General skin exam: no rashes or lesions noted Neuro General: patient oriented x3 Cranial nerves: Yes Normal hearing present Cognition (Neuro): normal cognition Gait exam (Neuro): Normal gait present Extrem General: Yes normal to inspection, Yes capillary refill normal, Yes no clubbing, cyanosis or edema and Yes no pedal edema Psych Appearance: grossly normal and well kempt Speech and movement: Normal speech and movement present and Clear speech present Affect: normal affect Attitude: cooperative Thought process: Normal thought process present Thought content: Normal thought content present Insight: Good insight present (Psych) Judgement: Good judgement present (Psych) Results Reviewed Results Reviewed: [facility] [address] [place] [address] [place] [address] XRay Report Signed Patient: Lokesh Laura MR#: [id number] : 1975 Acct:[id number] Age/Sex: 48 / M ADM Date: 11/01/23 Loc: HO.HMGCX Attending Dr: Tierra Adamson NP Ordering Physician: Tierra Adamson NP Date of Service: 11/01/23 Procedure(s): XR chest 2V Accession Number(s): [id number] cc: Tierra Adamson NP; Lauren Oconnor MD~ EXAMINATION: XR CHEST CLINICAL INFORMATION: Chest pain COMPARISON: 09/16/2022 TECHNIQUE: 2 views of the chest were obtained. FINDINGS: Lungs are well-inflated and clear. Trachea is midline in position. No interstitial disease, consolidation or mass. No pleural effusion or pneumothorax. Cardiac silhouette and pulmonary vessels are normal in size. The mediastinum and jj have normal contour. The right hemidiaphragm is chronically mildly elevated. The visualized bones and upper abdomen are unremarkable. XR/XR chest 2V IMPRESSION: No acute cardiopulmonary abnormality. 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 Will send for PFT and RAST to evaluate. He reports moderate improvement in symptoms on Advair, will send albuterol PRN. Given patient noted symptoms of small volume hemoptysis, dyspnea and chest pain, will check Ddimer. At this time, low suspicion for PE, will send for routine chest CT given persistence of symptoms as well as smoking history. Prior CXR unremarkable and chest CT 2020 revealed multiple pulmonary nodules <3mm. All questions were answered and patient is in agreement of plan. Will follow up to review results or sooner if needed. Orders: Orders D Dimer High Sensitivity Today R07.9 - Chest pain, unspecified Immunoglobulin E Today Z91.09 - Other allergy status, other than to drugs and biological substances CT chest wo IV con Today F17.210 - Nicotine dependence, cigarettes, uncomplicated, R91.8 - Other nonspecific abnormal finding of lung field Resp Allergy Profile Region I Today Z91.09 - Other allergy status, other than to drugs and biological substances Complete Blood Count Auto Diff Today Z91.09 - Other allergy status, other than to drugs and biological substances PFT pulmonary function test Today J45.909 - Unspecified asthma, uncomplicated Medications: New albuterol sulfate 90 mcg/actuation 2 puffs inhalation Q4-6H PRN 1 ea 2RF shortness of breath or wheezing Coding Level of Care Code New Pt Level 4 (04140) Diagnoses Asthma J45.909 Chest pain R07.9 Environmental allergies Z91.09
[2023-11-20 14:59] VITALS: BP 110/72; PULSE 73; O2SAT 98; BMI 29.7
== END 2023-11-20 15:29 | disposition home or self-care (01) ==
PROVIDERS: PCP Internal Medicine; Referring Provider Internal Medicine; Visit Provider Nurse Practitioner Family
DX: J45.909 Unspecified asthma, uncomplicated (principal); R07.9 Chest pain, unspecified; Z91.09 Other allergy status, other than to drugs and biological substances
CPT/HCPCS: 99204

== ENCOUNTER 2023-11-20 14:55 | Outpatient (REF) | payer MEDICARE, MEDICAID, SELFPAY ==
[2023-11-20 15:44] LABS: MANUAL DIFF FLAG NO
[2023-11-20 15:56] LABS: Basophils Absolute Auto 0.1 X10*3/uL (0.0-0.2); Basophils Percent Auto 0.8 % (0-2); Eosinophils Absolute Auto 0.1 X10*3/uL (0.0-0.4); Eosinophils Percent Auto 1.3 % (0-4); Hematocrit 45.9 % (42.0-52.0); Hemoglobin 15.7 g/dl (14.0-18.0); Imm Gran Abs Auto 0.05 X10*3/uL (0.00-0.03); Imm Gran Pct Auto 0.6 % (0.0-0.4); Lymphocytes Absolute Auto 2.3 X10*3/uL (1.2-4.9); Lymphocytes Percent Auto 27.2 % (20-40); Mean Corpuscular HGB Conc 34.2 g/dl (31.0-36.0); Mean Corpuscular Hemoglobin 31.6 pg (27.0-33.0); Mean Corpuscular Volume 92.4 fL (80.0-98.0); Mean Platelet Volume 10.5 fL (9.4-12.4); Monocytes Absolute Auto 0.8 X10*3/uL (0.1-1.2); Neutrophils Absolute Auto 5.1 x10*3/uL (2.0-8.3); Neutrophils Percent Auto 61.1 % (45-73); Platelet Count 234 X10*3/uL (160-400); Red Blood Count 4.97 X10*6/uL (4.60-5.80); Red Cell Distribution Width 11.5 % (11.0-16.0); White Blood Count 8.3 X10*3/uL (4.8-10.8)
[2023-11-20 16:08] LABS: D Dimer High Sensitivity < 150 NG/ML
[2023-11-21 20:03] LABS: Class Alternaria alternata 0; Class Aspergillus fumigatus 0; Class Bermuda Grass 0; Class Birch 0; Class Cat Dander 0; Class Cladosporium herbarum 0; Class Cockroach 0; Class Common Ragweed 0; Class Cottonwood 0; Class Derm. pterony 0; Class Dermatophagoides farinae 0; Class Dog Dander 0; Class Elm 0; Class Maple Box Elder 0; Class Mountain Cedar 0; Class Mouse Urine Protein 0; Class Mugwort 0; Class Oak 0; Class Penicillium crysogenum 0; Class Rough Pigweed 0; Class Sheep Sorrel 0; Class Sycamore 0; Class Timothy Grass 0; Class Walnut Tree 0; Class White Ash 0; Class White Mulberry 0; D001 IgE D pteronyssinus <0.10 kU/L; D002 - IgE D farinae <0.10 kU/L; E001 - IgE Cat Dander <0.10 kU/L; E005 - IgE Dog Dander <0.10 kU/L; E072-IgE Mouse Urine <0.10 kU/L; G002 IgE Bermuda Grass <0.10 kU/L; G006 - IgE Timothy Grass <0.10 kU/L; I006-IgE Cockroach, German <0.10 kU/L; Immunoglobulin E <2 kU/L (<OR=114); M001 IgE Penicillium chrysogen <0.10 kU/L; M002 - IgE Cladosporium herbar <0.10 kU/L; M003 - IgE Aspergillus fumigat <0.10 kU/L; M006 - IgE Alternaria alternat <0.10 kU/L; T001 IgE Maple/Box Elder <0.10 kU/L; T003 IgE Common Silver Birch <0.10 kU/L; T006 - IgE Cedar, Mountain <0.10 kU/L; T007 - IgE Oak, White <0.10 kU/L; T008 IgE Elm, American <0.10 kU/L; T010 - IgE Walnut <0.10 kU/L; T011 - IgE Maple Leaf Sycamore <0.10 kU/L; T014 - IgE Cottonwood <0.10 kU/L; T015 - IgE Ash, White <0.10 kU/L; T070 - IgE White Mulberry <0.10 kU/L; W001 - IgE Ragweed, Short <0.10 kU/L; W006 - IgE Mugwort <0.10 kU/L; W014 IgE Pigweed, Common <0.10 kU/L; W018 IgE Sheep Sorrel <0.10 kU/L
== END 2023-11-20 14:56 | disposition home or self-care (01) ==
LOC: HO.LAB 14:55
PROVIDERS: PCP Internal Medicine; Referring Provider Internal Medicine; Visit Provider Nurse Practitioner Family
DX: Z91.09 Other allergy status, other than to drugs and biological substances (principal); R07.9 Chest pain, unspecified; J45.909 Unspecified asthma, uncomplicated; F17.210 Nicotine dependence, cigarettes, uncomplicated
CPT/HCPCS: 36415; 82785; 85025; 85379; 86003; 99202

== ENCOUNTER 2023-12-18 16:42 | Outpatient (REF) | payer MEDICARE, MEDICAID, SELFPAY ==
--- NOTE | ~2023-12-18 | CT_ITS ---
EXAMINATION: CT CHEST WITHOUT CONTRAST CLINICAL INFORMATION: Pulmonary nodules COMPARISON: 04/15/2020 TECHNIQUE: Multidetector volumetric CT imaging of the chest was done. Axial MIP volume rendering provided. Sagittal and coronal reformatted images were obtained. This CT examination was performed using dose optimization techniques as appropriate, variously including the following: *Automated exposure control *Adjustment of mA and/or kV according to patient size (this includes techniques or standardized protocols for targeted exams where dose is matched to indication/reason for exam; i.e. extremities or head) *Use of iterative reconstruction technique DLP: 184 mGy-cm FINDINGS: LUNGS: Left upper lobe 3 mm nodule (5:350), unchanged. Central airways are patent. Calcified left lung granulomas. No new or enlarging pulmonary nodule. PLEURA: No pleural effusion. MEDIASTINUM: No cardiomegaly. Aorta and pulmonary artery are normal in caliber. No mediastinal adenopathy. Lack of IV contrast limits evaluation for hilar adenopathy. CORONARY ARTERY CALCIFICATION: No coronary artery calcification appreciated. CHEST WALL/AXILLA: No axillary or internal mammary lymphadenopathy. UPPER ABDOMEN: Unremarkable. OSSEOUS STRUCTURES: Unremarkable. CT/CT chest wo IV con IMPRESSION: Left upper lobe 3 mm nodule is unchanged. No new or enlarging pulmonary nodule. Given greater than 2 years of stability, this is favored to be benign based on Fleischner Society guidelines. Electronically signed by: Josie Guthrie MD 01/01/2024 02:10 PM EDT RP
== END 2023-12-18 16:43 | disposition home or self-care (01) ==
LOC: HO.CT 16:42
PROVIDERS: PCP Internal Medicine; Visit Provider Nurse Practitioner Family
DX: R91.8 Other nonspecific abnormal finding of lung field (principal); F17.210 Nicotine dependence, cigarettes, uncomplicated
CPT/HCPCS: 71250

== ENCOUNTER 2024-01-01 14:22 | Outpatient (AMB) | payer MEDICARE, MEDICAID, SELFPAY ==
--- NOTE | 2024-01-01 14:23 | MHC.OFFVIS ---
Vital Signs 01/01/24 14:24 Height 6 ft Weight 223 lb 12.307 oz BMI 30.3 BP 132/94 H Blood Pressure Location Rt brachial Position Sitting Pulse 68 Pulse Source Pulse Oximeter Pulse Oximetry (%) 97 Oxygen Delivery Method Room Air Intake Visit Reasons: Dyspnea Allergies ibuprofen Allergy (Intermediate, Verified 01/01/24 14:27) GI Bleeding HPI HPI Dyspnea: Details: Lokesh is a pleasant 48 year old male, former smoker, recently quit 6 months ago with 30+ pack year history, with underlying asthma. He has been maintained on Advair 115 mcg with moderate improvement in symptoms. He continues to report dyspnea on exertion and chest tightness. He denies cough or wheezing. At the last visit an order for PFT was placed, awaiting this to be scheduled. Today he presents to review chest CT results. [facility] Medical History (Updated 11/20/23 @ 15:29 by Carol Cristobal NP) Mass of joint of right shoulder History of COVID-19 Asthma Melena AYLIN (generalized anxiety disorder) Mild recurrent major depression Overweight (BMI 25.0-29.9) Chest pain Low back pain Pulmonary nodules Surgical History S/P excision of lipoma (12/27/22) Hx of colonoscopy History of esophagogastroduodenoscopy (EGD) History of surgery History of lipoma History of tonsillectomy History of ear surgery Family History Father Hypertension Mother Diabetes Paternal Grandfather Colon cancer Family/Other FH: mental illness Social History Housing: House Are you a primary child care leader to a significant other at home: No Do you presently have visiting nurse or other home services: No Alcohol intake: current Alcohol intake frequency: a few times a month Alcohol type: wine and hard liquor Patient Tobacco Use Status: Former Tobacco user Tobacco use type: Cigarette Cigarette Packs Per Day: 1 Years Smoked: 30 e-Cigarette/Vaping Use: Never Used Second Hand Smoke Exposure: No Substance Use Type: Marijuana service: No Current occupational status: employed Current occupational exposures/hazards: No Cognitive needs: No Hearing needs: No Vision needs: No Review of Systems Const Denies chills, Denies excessive sweating, Denies fever(s), Denies headache(s) and Denies night sweats Eyes Denies dry eyes, Denies irritation and Denies itchy eyes ENT Reports Normal hearing present, Denies headache(s), Denies nasal congestion, Denies nasal discharge, Denies post nasal drip and Denies sore throat Card Denies chest pain, Denies claudication, Denies leg edema, Reports dyspnea on exertion, Denies orthopnea and Denies paroxysmal nocturnal dyspnea Resp Denies change in phlegm color, Denies chest congestion, Denies excessive phlegm production, Denies pain on inspiration, Denies pain with cough, Reports dyspnea on exertion, Denies stridor and Denies wheezing Musc Denies myalgias Neuro Reports Normal hearing present and Denies headache(s) Endo Denies excessive sweating Yaw/Lymph Denies lymphadenopathy Aller/Immun Denies itchy eyes, Denies seasonal rhinorrhea and Denies wheezing Physical Exam Vital Signs: Last Vital Signs Pulse 68 01/01/24 14:24 BP 132/94 H 01/01/24 14:24 Pulse Ox 97 01/01/24 14:24 Oxygen Delivery Method Room Air 01/01/24 14:24 BMI result Body Mass Index 30.3 Const General: cooperative, healthy appearing, comfortable, no acute distress, well developed and alert Orientation/consciousness: patient oriented x3 Limitations: no limitations HEENT Head: Yes normal to inspection, Yes normocephalic and Yes atraumatic Ears: hearing grossly normal bilaterally and external ears normal Eyes General: appearance normal, both eyes and all related structures Eyelids: Yes eyelids normal Sclerae: sclerae normal EOM: EOMs intact bilaterally Neck Neck: Yes normal visual inspection and Yes no lymphadenopathy Lymphatic: no lymphadenopathy noted Chest Chest palpation & inspection: normal inspection of the chest Resp Effort & Inspection: normal respiratory effort, able to speak in complete sentences, no audible wheezes, no cough, no stridor, not tachypneic, no tripod positioning and no use of accessory muscles Auscultation: clear to auscultation bilaterally Cardio Jugular venous distension: no JVD Rate: regular rate Rhythm: regular rhythm Skin Other: warm, dry General skin exam: no rashes or lesions noted Neuro General: patient oriented x3 Cranial nerves: Yes Normal hearing present Cognition (Neuro): normal cognition Gait exam (Neuro): Normal gait present Extrem General: Yes normal to inspection, Yes capillary refill normal, Yes no clubbing, cyanosis or edema and Yes no pedal edema Psych Appearance: grossly normal and well kempt Speech and movement: Normal speech and movement present and Clear speech present Affect: normal affect Attitude: cooperative Thought process: Normal thought process present Thought content: Normal thought content present Insight: Good insight present (Psych) Judgement: Good judgement present (Psych) Results Reviewed Results Reviewed: [address] [address] [address] Scan Report Signed Patient: Lokesh Laura MR#: [id number] : 1975 Acct:[id number] Age/Sex: 48 / M ADM Date: 12/18/23 Loc: HO.CT Attending Dr: Carol Cristobal NP Ordering Physician: Carol Cristobal NP Date of Service: 12/18/23 Procedure(s): CT chest wo IV con Accession Number(s): [id number] cc: Lauren Oconnor MD; Carol Cristobal NP~ EXAMINATION: CT CHEST WITHOUT CONTRAST CLINICAL INFORMATION: Pulmonary nodules COMPARISON: 04/15/2020 TECHNIQUE: Multidetector volumetric CT imaging of the chest was done. Axial MIP volume rendering provided. Sagittal and coronal reformatted images were obtained. This CT examination was performed using dose optimization techniques as appropriate, variously including the following: *Automated exposure control *Adjustment of mA and/or kV according to patient size (this includes techniques or standardized protocols for targeted exams where dose is matched to indication/reason for exam; i.e. extremities or head) *Use of iterative reconstruction technique DLP: 184 mGy-cm FINDINGS: LUNGS: Left upper lobe 3 mm nodule (5:350), unchanged. Central airways are patent. Calcified left lung granulomas. No new or enlarging pulmonary nodule. PLEURA: No pleural effusion. MEDIASTINUM: No cardiomegaly. Aorta and pulmonary artery are normal in caliber. No mediastinal adenopathy. Lack of IV contrast limits evaluation for hilar adenopathy. CORONARY ARTERY CALCIFICATION: No coronary artery calcification appreciated. CHEST WALL/AXILLA: No axillary or internal mammary lymphadenopathy. UPPER ABDOMEN: Unremarkable. OSSEOUS STRUCTURES: Unremarkable. CT/CT chest wo IV con IMPRESSION: Left upper lobe 3 mm nodule is unchanged. No new or enlarging pulmonary nodule. Given greater than 2 years of stability, this is favored to be benign based on Fleischner Society guidelines. Electronically signed by: Josie Guthrie MD 01/01/2024 02:10 PM EDT RP Assessment & Plan Assessment & Plan (1) Asthma: Code(s): J45.909 - Unspecified asthma, uncomplicated Category: Medical (2) Environmental allergies: Code(s): Z91.09 - Other allergy status, other than to drugs and biological substances Category: Medical (3) Personal history of tobacco use: Code(s): Z87.891 - Personal history of nicotine dependence Category: Social Hx Plan Reviewed chest CT which revealed MIHIR 3 mm nodule. Will send for repeat Chest CT in one year to assess stability. He reports suboptimal relief with Advair 115 mcg, will increase. All questions were answered and patient is in agreement of plan. Will follow up to review results of PFT and response to increased Advair or sooner if needed. Orders: Orders CT chest wo IV con 11 Months R91.8 - Other nonspecific abnormal finding of lung field, Z87.891 - Personal history of nicotine dependence Medications: New fluticasone propion-salmeterol 230-21 mcg/actuation (Advair HFA) 2 puffs inhalation Q12H 12 grams 6RF Coding Level of Care Code Est Pt Level 4 (00302) Diagnoses Asthma J45.909 Environmental allergies Z91.09 Personal history of tobacco use Z87.891
[2024-01-01 14:24] VITALS: BP 132/94; PULSE 68; O2SAT 97; BMI 30.3
== END 2024-01-01 14:47 | disposition home or self-care (01) ==
PROVIDERS: PCP Internal Medicine; Visit Provider Nurse Practitioner Family
DX: J45.909 Unspecified asthma, uncomplicated (principal); Z91.09 Other allergy status, other than to drugs and biological substances; Z87.891 Personal history of nicotine dependence
CPT/HCPCS: 99214

== ENCOUNTER → 2024-01-01 14:22 | Outpatient (BNVA) | payer MEDICARE, MEDICAID, SELFPAY | PROVIDERS: PCP Internal Medicine; Visit Provider Nurse Practitioner Family | DX: J45.909 Unspecified asthma, uncomplicated (principal); R91.8 Other nonspecific abnormal finding of lung field; Z91.09 Other allergy status, other than to drugs and biological substances; F17.210 Nicotine dependence, cigarettes, uncomplicated | CPT/HCPCS: 99212 ==

== ENCOUNTER 2024-02-17 12:28 | Emergency (ER) | payer MEDICARE, MEDICAID, SELFPAY ==
--- NOTE | ~2024-02-17 | CT_ITS ---
EXAMINATION: CT HEAD WITHOUT CONTRAST CLINICAL INFORMATION: Right frontal headache for one week, blurred vision and syncope COMPARISON: None available. TECHNIQUE: Contiguous axial imaging was performed from the skull base to vertex without intravenous administration of contrast. This CT examination was performed using dose optimization techniques as appropriate, variously including the following: *Automated exposure control *Adjustment of mA and/or kV according to patient size (this includes techniques or standardized protocols for targeted exams where dose is matched to indication/reason for exam; i.e. extremities or head) *Use of iterative reconstruction technique DLP: 757 mGy-cm RESULTS: There is no evidence of acute intracranial hemorrhage, acute large vessel infarct, midline shift or mass effect. The haas-white differentiation is preserved. The ventricles and sulci are within normal limits in size and configuration. There is no evidence of hydrocephalus. There are no extraaxial collections. Osseous structures are intact. Paranasal sinuses and mastoid air cells are well aerated. CT/CT head/brain wo IV con IMPRESSION: Unremarkable non-contrast CT of the brain. Electronically signed by: Yolie Dwyer MD 02/17/2024 03:56 PM [facility]
[2024-02-17 12:55] VITALS: BP 149/106; PULSE 72; RESP 20; TEMP 36.3; O2SAT 97; BMI 30.7
--- NOTE | 2024-02-17 12:55 | ED_ITS ---
HPI - Headache General Chief Complaint: Neuro Symptoms/Deficit Stated Complaint: migraine-r eye blurry vision-passed out at work Time Seen by Provider: 02/17/24 16:04 Source: patient, RN notes reviewed and old records reviewed Mode of arrival: ambulatory Limitations: no limitations History of Present Illness ED Provider: Alyssa LABOY Narrative: 48-year-old male past medical history significant for asthma, PTSD presents for evaluation of a headache. Patient reports that he has had a right-sided headache on and off for the last week. He reports the pain is in the right temporal region. The pain waxes and wanes in intensity. Currently in his a 01/17. He reports in the past it has been somewhat improved with Tylenol but today has not been He reports occasional blurry vision but denies any blurry vision currently. He reports that he passed out at work today and was therefore sent home from work He denies any head trauma. Denies any chest pain, shortness of breath. Denies any dizziness The patient reports having had a right upper root canal but a year ago and occasional pain to the area Denies any swelling in the mouth Related Data Previous Rx's ?Medication ?Instructions ?Recorded fluticasone propionate 115 2 puff inhalation BID #12 grams 11/01/23 mcg-salmeterol 21 mcg/actuation HFA inhaler (Advair HFA) fluticasone propionate 230 2 puff inhalation Q12H #12 grams 01/01/24 mcg-salmeterol 21 mcg/actuation HFA inhaler (Advair HFA) albuterol sulfate 90 mcg/actuation 2 puff PO Q4-6H PRN for wheezing 01/23/24 aerosol inhaler #6.7 grams Allergies Allergy/AdvReac Type Severity Reaction Status Date / Time ibuprofen Allergy Intermediate GI Bleeding Verified 02/17/24 12:57 Review of Systems 2 Constitutional: Constitutional: Denies body ache(s), Denies chills, Denies fever(s), Denies frequent falls, Reports headache(s) and Denies weakness Eyes: Eyes: Reports blurry vision and Denies loss of vision ENT: Denies vertigo, Denies dizziness and Reports headache(s) Cardiovascular: Cardiovascular: Denies chest pain, Reports syncope and Denies dyspnea Respiratory: Respiratory: Denies cough and Denies dyspnea Gastrointestinal: Gastrointestinal: Denies abdominal pain, Reports nausea and Denies vomiting Musculoskeletal: Musculoskeletal: Denies back pain and Denies tingling Integumentary/Breasts: Skin/Breast: Denies erythema and Denies rash Neurologic: Denies Abnormal speech present, Denies vertigo, Denies dizziness, Reports syncope, Denies frequent falls, Reports headache(s), Denies focal weakness, Denies loss of vision, Denies restless legs, Denies convulsions, Denies seizure-like activity, Denies Sensory deficit (Neuro), Denies tingling, Denies paresthesias, Denies tremor(s) and Denies weakness Psychiatric: Psychiatric: Denies anxiety PMFSH Past Medical History Medical History (Updated 02/17/24 @ 16:56 by Alonso Shah) Mass of joint of right shoulder History of COVID-19 Asthma Melena AYLIN (generalized anxiety disorder) Mild recurrent major depression Overweight (BMI 25.0-29.9) Chest pain Low back pain Pulmonary nodules Surgical History S/P excision of lipoma (12/27/22) Hx of colonoscopy History of esophagogastroduodenoscopy (EGD) History of surgery History of lipoma History of tonsillectomy History of ear surgery Family History Family History Father Hypertension Mother Diabetes Paternal Grandfather Colon cancer Family/Other FH: mental illness Social History Social History Housing: House Are you a primary rn wound care to a significant other at home: No Do you presently have visiting nurse or other home services: No Alcohol intake: current Alcohol intake frequency: holidays/special occasions only Alcohol type: wine and hard liquor Patient Tobacco Use Status: Former Tobacco user Tobacco use type: Cigarette Cigarette Packs Per Day: 1 Years Smoked: 30 Smoked in Last 30 Days: No e-Cigarette/Vaping Use: Never Used Second Hand Smoke Exposure: No Use of substances other than those prescribed or required for medical reasons: No Substance Use Type: Marijuana Advance Directives: No Advance Directives Information Provided: No service: No Current occupational status: employed Current occupational exposures/hazards: No Cognitive needs: No Hearing needs: No Vision needs: No Physical Exam 2 Vital Signs: Vital Signs: Last Vital Signs Temp 98.1 F 02/17/24 18:01 Pulse 68 02/17/24 18:01 Resp 14 02/17/24 18:01 BP 129/86 02/17/24 18:01 Pulse Ox 100 02/17/24 18:01 O2 Del Method Room Air 02/17/24 18:01 BMI result Body Mass Index 30.7 Const: General: healthy appearing, comfortable, no acute distress, alert and awake Nutritional Appearance: well nourished Orientation/consciousness: p atient oriented x3 HEENT: Head: Yes normocephalic and Yes atraumatic Eyes: Eyelids: Yes eyelids normal Conjunctivae: conjunctivae normal S clerae: sclerae normal Corneas: corneas normal Pupils: Equal, round and reactive pupils present EOM: EOMs intact bilaterally Neck: Neck: Yes full ROM and Yes no meningeal signs Resp: Effort & Inspection: normal respiratory effort, able to speak in complete sentences and not labored Cardio: Rate: regular rate Rhythm: regular rhythm GI: Inspection: No distended Palpation (GI): Soft to palpation, not firm, nontender, no guarding and not rigid Skin: General skin exam: elasticity normal Neuro: General: patient oriented x3 and no meningeal signs Cranial nerves: Yes CN's II-XII intact bilaterally, Yes Equal, round and reactive pupils present and Yes Bilaterally intact EOM present Cognition (Neuro): normal cognition Speech: No Abnormal speech present Sensory Exam: No Sensory deficit (Neuro) Course Course Course Narrative: This is an RME performed by Debbie Hill CNP: Additional HPI, ROS, PE not included below will be deferred to primary provider. Patient is a 48-year-old male presents to emergency department for evaluation. Reports over the past week he has been experiencing a right-sided frontal headache that results in pain to the eye excessive tearing. Episodes typically last 15 minutes or up to an hour. Has been taking Tylenol without any improvement. Has associated nausea. Today he reports he had a severe episode while at work, the vision in his eye became very blurry and felt as though he could not see and he ultimately syncopized. This was witnessed by his boss. He had to lie down for a while before he could feel well enough to drive to the emergency department. Denies any history of migraine forward similar headache in the past. Admits to ended patient pain as well as nasal congestion. Exam: No focal neurological deficits, PERRL, EOMi - concern for new onset cluster headaches versus ICH, SAH given associated increased severity today and syncopal episode Plan: Serum labs, EKG, CT head Reevaluation(s) Reevaluation #1: Patient re-evaluated, his headache has completely resolved after fluids, Toradol, Reglan, and Benadryl, he will be discharged and follow up with his primary doctor Time: 19:15 Medications Administered Discontinued Medications Generic Name Dose Route Start Last Admin Trade Name Freq PRN Reason Stop Dose Admin Diphenhydramine HCl 25 mg 02/17/24 16:17 02/17/24 16:37 Diphenhydramine Hcl 50 Mg/Ml Vial IVPUSH 02/17/24 16:18 25 mg ONCE ONE Administration Sodium Chloride 1,000 mls @ 999 mls/hr 02/17/24 16:30 02/17/24 18:28 Ns IV 02/17/24 17:30 Infused .Q1H1M JAYSON Infusion Ketorolac Tromethamine 15 mg 02/17/24 16:17 02/17/24 16:37 Ketorolac Tromethamine 15 Mg/Ml Vial IVPUSH 02/17/24 16:18 15 mg ONCE ONE Administration Metoclopramide HCl 10 mg 02/17/24 16:17 02/17/24 16:37 Metoclopramide Hcl 10 Mg/2 Ml Vial IVPUSH 02/17/24 16:18 10 mg ONCE ONE Administration Medical Decision Making Medical Decision Making [facility] Narrative: 48-year-old male presents for evaluation of on and off headache for the last week. He currently is experiencing a right-sided headache that is a 10/10. He denies any history of headaches this severe. He denies any neck pain, denies any fevers, chills or viral symptoms. Infectious cause is less likely. Given the waxing waning intensity of his symptoms I feel this subarachnoid hemorrhage is less likely. His CT scan was obtained which does not show any evidence of acute bleeding. I will add on an ESR to evaluate for temporal arteritis. The patient's headache is possibly related to ocular migraine, cluster headaches. Again, the patient appears well with no neurologic deficits. Differential Diagnosis Differential Diagnoses: The differential diagnosis associated with the presentation includes Migraine headache Cluster headache Intracranial hemorrhage Acute headache Temporal arteritis Lab Data MDM Lab Attestation statement: I reviewed the patient's lab results. No leukocytosis or anemia. Normal platelet count. No electrolyte abnormalities. 02/17/24 13:41 02/17/24 13:41 Labs: Lab Results 02/17/24 Range/Units 13:41 WBC 8.2 (4.8-10.8) X10*3/uL RBC 5.25 (4.60-5.80) X10*6/uL Hgb 16.2 (14.0-18.0) g/dl Hct 47.1 (42.0-52.0) % MCV 89.7 (80.0-98.0) fL MCH 30.9 (27.0-33.0) pg MCHC 34.4 (31.0-36.0) g/dl RDW 11.4 (11.0-16.0) % Plt Count 233 (160-400) X10*3/uL MPV 10.3 (9.4-12.4) fL Immature Gran % (Auto) 0.6 H (0.0-0.4) % Neut % (Auto) 56.9 (45-73) % Lymph % (Auto) 30.8 (20-40) % [place] % (Auto) 9.9 (2-11) % Eos % (Auto) 1.1 (0-4) % Baso % (Auto) 0.7 (0-2) % Lymph # (Auto) 2.5 (1.2-4.9) X10*3/uL [place] # (Auto) 0.8 (0.1-1.2) X10*3/uL Eos # (Auto) 0.1 (0.0-0.4) X10*3/uL Baso # (Auto) 0.1 (0.0-0.2) X10*3/uL Abs Immat Gran (auto) 0.05 H (0.00-0.03) X10*3/uL Absolute Neuts (auto) 4.7 (2.0-8.3) x10*3/uL Absolute Nucleated RBC 0.000 (0.0-0.012) X10*3/uL Nucleated RBC % (auto) 0.0 (0.0-0.2) /100WBC ESR 1 (0-15) MM/HR PT 11.9 (10.9-12.4) SEC INR 1.0 (0.9-1.1) Sodium 139 (135-145) mmol/L Potassium 4.8 (3.3-5.1) mmol/L Chloride 110 H (96-108) mmol/L Carbon Dioxide 21 L (22-29) mmol/L Anion Gap 13 (12-20) BUN 14 (9-16) mg/dL Creatinine 1.01 (0.5-1.4) mg/dL Estim Creat Clear Calc 108.4 Estimated GFR > 60 Random Glucose 81 (60-115) mg/dL Calcium 9.4 (8.4-10.2) mg/dL Total Bilirubin 0.6 (0.0-1.0) mg/dL AST 49 H (5-37) U/L ALT 63 H (0-40) U/L Alkaline Phosphatase 58 (39-117) U/L Total Protein 7.5 (6.5-8.0) g/dL Albumin 4.5 (3.5-5.0) g/dL Influenza Type A (PCR) NEGATIVE (Negative) Influenza Type B (PCR) NEGATIVE (Negative) RSV RNA Qual (PCR) NEGATIVE (Negative) SARS-CoV-2 RNA (RT-PCR) NEGATIVE (Negative) Discharge Plan Discharge Clinical Impression: Headache Patient Disposition: Home, Self-Care Instructions: Acute Headache (ED) Additional Instructions: Your workup in the ER today was reassuring. Use ibuprofen/Tylenol as needed for pain Hydrate well Follow-up with your primary doctor, return for new or worsening symptoms Prescriptions: No Action albuterol sulfate 90 mcg/actuation HFA aerosol inhaler 2 puff PO Q4-6H PRN (Reason: for wheezing) Qty: 6.7 0RF fluticasone propion-salmeterol [Advair HFA] 115-21 mcg/actuation HFA aerosol inhaler 2 puff inhalation BID Qty: 12 0RF fluticasone propion-salmeterol [Advair HFA] 230-21 mcg/actuation HFA aerosol inhaler 2 puff inhalation Q12H Qty: 12 6RF Print Language: Japanese
--- NOTE | 2024-02-17 13:01 | ECG_ITS ---
Test Reason : SYNCOPE Blood Pressure : / mmHG Vent. Rate : 066 BPM Atrial Rate : 066 BPM P-R Int : 152 ms QRS Dur : 112 ms QT Int : 388 ms P-R-T Axes : 014 -20 021 degrees QTc Int : 406 ms Normal sinus rhythm Minimal voltage criteria for LVH, may be normal variant ( R in aVL ) Borderline ECG When compared with ECG of 16-SEP-2022 12:53, No significant change was found Referred By: Parris Hill Electronically Signed By:IRLANDA GONSALEZ MD
[2024-02-17 13:34] VITALS: BP 150/100; PULSE 68; RESP 16; TEMP 36.4; O2SAT 100
--- NOTE | 2024-02-17 13:44 | PC.NURSE ---
pt ambulates to the room w/ a strong steady gait - no use of assistive devices needed. upon assessment, a&ox4. vss and up to date aside from being hypertensive. nsr on the cardiac monitor technician. pt presents to the ED w/ 01/17 right sided nonradiating headache that's lasted x 1 week. pt reports that episodes last for 15-20min where he then becomes nauseated. pt also reports blurred vision and photophobia. pt reports that pain was so increased this morning that he then became dizzy and had a witnessed syncopal episode at work [employer]. -headstrike, -thinners. no trauma/injuries reported. neuros otherwise intact. pt denies any home medication/does not monitor BP regularly. 20gIV placed in the right forearm - labs obtained/sent to lab. ekg performed by tech. no sob/wob noted. respirations even/unlabored. lights dimmed to promote comfort. plan of care ongoing. call calixto placed within reach.
[2024-02-17 13:46] LABS: MANUAL DIFF FLAG NO
[2024-02-17 13:49] LABS: Basophils Absolute Auto 0.1 X10*3/uL (0.0-0.2); Basophils Percent Auto 0.7 % (0-2); Eosinophils Absolute Auto 0.1 X10*3/uL (0.0-0.4); Eosinophils Percent Auto 1.1 % (0-4); Hematocrit 47.1 % (42.0-52.0); Hemoglobin 16.2 g/dl (14.0-18.0); Imm Gran Abs Auto 0.05 X10*3/uL (0.00-0.03); Imm Gran Pct Auto 0.6 % (0.0-0.4); Lymphocytes Absolute Auto 2.5 X10*3/uL (1.2-4.9); Lymphocytes Percent Auto 30.8 % (20-40); Mean Corpuscular HGB Conc 34.4 g/dl (31.0-36.0); Mean Corpuscular Hemoglobin 30.9 pg (27.0-33.0); Mean Corpuscular Volume 89.7 fL (80.0-98.0); Mean Platelet Volume 10.3 fL (9.4-12.4); Monocytes Absolute Auto 0.8 X10*3/uL (0.1-1.2); Monocytes Percent Auto 9.9 % (2-11); Neutrophils Absolute Auto 4.7 x10*3/uL (2.0-8.3); Neutrophils Percent Auto 56.9 % (45-73); Platelet Count 233 X10*3/uL (160-400); Red Blood Count 5.25 X10*6/uL (4.60-5.80); Red Cell Distribution Width 11.4 % (11.0-16.0); White Blood Count 8.2 X10*3/uL (4.8-10.8)
[2024-02-17 14:02] LABS: Alanine Aminotransferase 63 U/L (0-40); Albumin Level 4.5 g/dL (3.5-5.0); Alkaline Phosphatase 58 U/L (39-117); Anion Gap 13 (12-20); Aspartate Amino Transferase 49 U/L (5-37); Bilirubin Total 0.6 mg/dL (0.0-1.0); Blood Urea Nitrogen 14 mg/dL (9-16); Calcium 9.4 mg/dL (8.4-10.2); Carbon Dioxide 21 mmol/L (22-29); Chloride 110 mmol/L (96-108); Creatinine Clr Calc Pharmacy 108.4; Estimated Glomerular Filt Rate > 60; Glucose Random 81 mg/dL (60-115); Potassium 4.8 mmol/L (3.3-5.1); Sodium 139 mmol/L (135-145); Total Protein 7.5 g/dL (6.5-8.0)
[2024-02-17 14:04] LABS: Prothrombin Time 11.9 SEC (10.9-12.4)
[2024-02-17 14:27] LABS: Influenza A PCR NEGATIVE (Negative); Influenza B PCR NEGATIVE (Negative); Resp Syncy Virus RNA Qual PCR NEGATIVE (Negative); SARS COV2 PCR INHOUSE NEGATIVE (Negative)
[2024-02-17 16:07] VITALS: BP 135/103; PULSE 65; RESP 12; TEMP 36.5; O2SAT 99
[2024-02-17] MEDS: Metoclopramide HCl 10 MG/2 ML VIAL IVPUSH (16:37)
[2024-02-17] MEDS: 0.9 % Sodium Chloride 1,000 ML 999 ML IV (16:37)
[2024-02-17] MEDS: diphenhydrAMINE HCL 50 MG/ML VIAL 25 MG IVPUSH (16:37)
[2024-02-17] MEDS: Ketorolac Tromethamine 15 MG/ML VIAL IVPUSH (16:37)
--- NOTE | 2024-02-17 16:44 | PC.NURSE ---
pt reports increase in right sided DEGROOT - provider notified/aware. medication administered per provider order. effectiveness pending.
[2024-02-17 17:05] LABS: Erythrocyte Sedimentation Rate 1 MM/HR (0-15)
[2024-02-17 18:01] VITALS: BP 129/86; PULSE 68; RESP 14; TEMP 36.7; O2SAT 100
[2024-02-17 19:46] VITALS: BP 129/86; PULSE 68; RESP 14; TEMP 36.7; O2SAT 100
== END 2024-02-17 19:46 | disposition home or self-care (01) ==
PROVIDERS: Nurse Practitioner Family; Physician Assistant; Emergency Provider Emergency Medicine; PCP Internal Medicine
DX: R51.9 Headache, unspecified (principal); R55 Syncope and collapse; Z03.818 Encounter for observation for suspected exposure to other biological agents ruled out; J45.909 Unspecified asthma, uncomplicated; F17.210 Nicotine dependence, cigarettes, uncomplicated; Z79.899 Other long term (current) drug therapy
CPT/HCPCS: 0241U; 70450; 80053; 85025; 85610; 85652; 93005; 96361; 96374; 96375; 99284; 99285; J1200; J1885; J2765

== ENCOUNTER → 2024-02-17 13:01 | Outpatient (BNV) | payer MEDICARE, MEDICAID, SELFPAY | PROVIDERS: Emergency Provider Emergency Medicine; PCP Internal Medicine; Visit Provider Internal Medicine Cardiovascular Disease | DX: R55 Syncope and collapse (principal) | CPT/HCPCS: 93010 ==

== ENCOUNTER 2024-02-26 14:48 | Outpatient (AMB) | payer MEDICARE, MEDICAID, SELFPAY ==
--- NOTE | 2024-02-26 15:01 | MHC.PC.OV ---
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: No Accompanied by: Self / Same As Patient Allergies ibuprofen Allergy (Intermediate, Verified 02/26/24 15:22) GI Bleeding Medication List - Last Reconciled 02/26/24 by Lauren Dejesus MD albuterol sulfate 90 mcg/actuation 2 puffs PO Q4-6H PRN fluticasone propion-salmeterol 230-21 mcg/actuation (Advair HFA) 2 puffs inhalation Q12H Tobacco use date assessed: 02/26/24 Dental Screening Dental Screen Date: 02/26/24 Did you have a dental visit in the last 12 months?: No Did you have a dental problem in the last 6 months where you did not have access to dental care?: No Was dental information given to patient?: Patient has dentist HPI HPI Comments History of Present Illness Details The patient is a 48-year-old male presenting with severe daily headaches that began six months ago following a period of frequent coughing while diving in [place]. The headaches have intensified over the past month, occurring daily, and are described as affecting the right side with vision blurriness in the right eye during episodes. The patient reports the headaches initially began after cessation of smoking, which he stopped six months ago. The headache pain radiates to the teeth and behind the eye. He has attempted relief with Tylenol and a medication recommended by his , both providing inadequate relief. The patient notes an aggravation of headaches with coffee consumption and reports a prior CT scan of the head from an emergency room visit. He is concerned about a cardiac issue as suggested by his supervisor sewing department if headache symptoms persist. He will visit a supervisor sewing department next week for further evaluation of a stable pulmonary nodule, unchanged in size for two years according to a recent chest CT scan. The patient also suspects a cardiac component due to his symptoms and is requesting a cardiology referral. No significant past cardiac history is reported, but he mentions chest discomfort and a need for reassurance about his cardiac status. Will order EKG and stress test before doing the referral. Also complains multiple lipomas and would like a surgery referral. [facility] Medical History (Updated 02/26/24 @ 15:33 by Lauren Dejesus MD) Mass of joint of right shoulder History of COVID-19 Asthma Melena AYLIN (generalized anxiety disorder) Mild recurrent major depression Overweight (BMI 25.0-29.9) Chest pain Low back pain Pulmonary nodules Surgical History S/P excision of lipoma (12/27/22) Hx of colonoscopy History of esophagogastroduodenoscopy (EGD) History of surgery History of lipoma History of tonsillectomy History of ear surgery Family History Father Hypertension Mother Diabetes Paternal Grandfather Colon cancer Family/Other FH: mental illness Social History (Updated 02/26/24 @ 15:26 by Lauren Dejesus MD) Housing: House Are you a primary care management coordinator to a significant other at home: No Do you presently have visiting nurse or other home services: No Alcohol intake: current Alcohol intake frequency: holidays/special occasions only Alcohol type: beer, wine and hard liquor Patient Tobacco Use Status: Former Tobacco user Tobacco use type: Cigarette Cigarette Packs Per Day: 1 Years Smoked: 30 e-Cigarette/Vaping Use: Never Used Second Hand Smoke Exposure: No Substance Use Type: Marijuana service: No Current occupational status: employed Current occupational exposures/hazards: No Cognitive needs: No Hearing needs: No Vision needs: No Questionnaire PHQ-9 Over the last 2 weeks, how often have you been bothered by any of the following problems? 1. Little interest or pleasure in doing things: not at all 2. Feeling down, depressed, or hopeless: nearly every day 3. Trouble falling or staying asleep, or sleeping too much: more than half the days 4. Feeling tired or having little energy: several days 5. Poor appetite or overeating: not at all 6. Feeling bad about yourself - or that you are a failure or have let yourself or your family down: not at all 7. Trouble concentrating on things, such as reading the newspaper or watching television: not at all 8. Moving or speaking so slowly that other people could have noticed. Or the opposite - being so fidgety or restless that you have been moving around a lot more than usual: not at all 9. Thoughts that you would be better off or of hurting yourself in some way: not at all Total score: 6 Depression Screening Interpretation: Positive Depression Screening Follow-up: Existing condition and Follow-up Visit Requested Depression Screening Done: Yes 54649 - PHQ-9 Billing: Yes Source: Developed by Drs. Zack Simpson, Shanon Ríos, Tucker Chacon and colleagues, with an educational vivian from [employer]. Thrive Questionnaire Date Thrive assessed: 02/26/24 I am a: Patient What is your living situation today?: I have a steady place to live Within the past 12 months, did the food you bought not last and you didn't have the money to get more?: Never true Within the past 12 months, did you worry whether your food would run out before you got money to buy more?: Never true Do you have trouble paying for medicines?: No Do you have trouble getting transportation to medical appointments?: No Do you have trouble paying your heating and electricity bill?: No Do you have trouble taking care of your child, family member or friend?: No Do you have trouble with day-to-day activities such as bathing, preparing meals, shopping, managing finances, etc.?: No Are you currently unemployed and looking for a job?: No Are you interested in more education?: No Please select the resources that you would like help with: None Currently or been in a relationship where the following occur: No concerns reported THRIVE Score: 0 AUDIT C Alcohol Use Questionnaire (AUDIT-C) 1. How often do you have a drink containing alcohol?: Monthly or less 2. How many drinks containing alcohol do you have on a typical day when you are drinking?: 1 or 2 3. How often do you have six or more drinks on one occasion?: Never Total Score: 1 Score Reviewed/Action Taken: No AYLIN-7 AMB Questionnaire AYLIN-7 Date AYLIN - 7 assessed: 02/26/24 Feeling nervous, anxious, or on edge: 3 = Nearly every day Not being able to stop or control worryin = Not at all Worrying too much about different things: 2 = More than half the days Trouble relaxin = Not at all Being so restless that it is hard to sit still: 0 = Not at all Becoming easily annoyed or irritable: 1 = Several days Feeling afraid as if something awful might happen: 0 = Not at all Total AYLIN-7 score (0-4 normal; 5-9 mild; 10-14 moderate; 15-21 severe): 6 Source: Developed by Drs. Zack Simpson, Shanon Ríos, Tucker Chacon and colleagues, with an educational vivian from [employer]. AYLIN-7 Assessment Billing AYLIN-7 Assessment Tool: AYLIN-7 Assessment 98508 Review of Systems Const All systems reviewed & are unremarkable except as noted in HPI and below Card Denies chest pain at rest, Denies chest pain with activity, Denies edema, Denies irregular heart rhythm, Denies claudication, Denies dyspnea, Denies dyspnea on exertion, Denies orthopnea, Denies paroxysmal nocturnal dyspnea and Denies slow heart rate Resp Denies cough, Denies dyspnea and Denies dyspnea on exertion Physical exam (Primary Care) Vital Signs: Last Vital Signs BP 122/78 02/26/24 15:02 BMI result Body Mass Index 30.1 BMI Assessment/Plan discussion: High BMI High, discussed plan: lifestyle, weight reduction, dietary and physical activity Tobacco/Smoking Status: Tobacco use Status Tobacco use date assessed 02/26/24 02/26/24 15:13 Patient Tobacco Use Status Former Tobacco user 02/26/24 15:26 Tobacco use type Cigarette 02/26/24 15:26 e-Cigarette/Vaping Use Never Used 02/26/24 15:26 PHQ-9: PHQ-9 Score PHQ-9: Total score 6 02/26/24 15:22 Depression Screening Interpretation: Positive Depression Screening Follow-up: Existing condition and Follow-up Visit Requested Thrive Assessment: Date of Thrive Assessment Date Thrive assessed 02/26/24 02/26/24 15:13 Currently or been in a relationship where the following occur: No concerns reported Resp Effort & Inspection: normal respiratory effort Auscultation: clear to auscultation bilaterally Cardio Jugular venous distension: no JVD Rate: regular rate Rhythm: regular rhythm Heart sounds: S1 normal heart sound present and S2 normal heart sound present Extrem General: Yes full ROM Office Procedures Flu Questionnaire Does the patient have a severe egg allergy?: No Immunizations Fluarix Triv [id number] (PF) 45 mcg (15 mcg x 3)/0.5 mL IM syringe Performing Provider: Lauren Dejesus MD [facility] Documented (not given) by: Meme Pringle Keegan on 02/26/24 15:14 Reason Not Given: Patient Refused Coding Level of Care Code Est Pt Level 4 (78326) Complex EM visit Add On G2211 Diagnoses New daily persistent headache G44.52 Chest pain R07.9 Lipoma D17.9 Pulmonary nodules R91.8 Additional Codes AYLIN-7 Assessment Billing - AYLIN-7 Assessment Tool: AYLIN-7 Assessment 64446 ([id number]) PHQ-9 - 37599 - PHQ-9 Billing: Yes ([id number]) Time Spent (min) 21 Assessment & Plan Assessment & Plan (1) New daily persistent headache: Code(s): G44.52 - New daily persistent headache (NDPH) Category: Medical (2) Chest pain: Code(s): R07.9 - Chest pain, unspecified Category: Medical (3) Lipoma: Code(s): D17.9 - Benign lipomatous neoplasm, unspecified Category: Medical (4) Pulmonary nodules: Code(s): R91.8 - Other nonspecific abnormal finding of lung field Category: Medical Plan - Headaches: Initiate a medication that addresses headaches and may also assist with depression and sleep issues. - Pulmonary Nodule: Continue under observation with the supervisor sewing department next week. - Suspected Cardiac Issue: Arrange for cardiac studies to rule out potential heart valve problems. Lipoas: Refer to surgery. Patient was informed and verbally consented to the use of an ambient scribe for clinic note documentation during this visit. I discussed the management of his headaches, suggesting a medication that could also aid his mild depression and improve sleep quality. We explored the importance of cardiac assessment given his symptoms and he expressed understanding of the precautionary measures proposed. Regarding the pulmonary nodule, I advised him to follow up with the supervisor sewing department as scheduled. I emphasized that the stable appearance of the nodule on imaging was a positive outcome. The patient was informed about the potential for cardiac issues and the importance of cardiovascular evaluation. He agreed to proceed with the cardiac workup as discussed. Orders: Orders CA cardiopulmonary stress test Today R07.9 - Chest pain, unspecified Influenza [id number] Immunization Today Z23 - Encounter for immunization ECG 12 lead EKG Today R07.9 - Chest pain, unspecified Referrals Neurology Referral G44.52 - New daily persistent headache (NDPH) General Surgery Referral D17.9 - Benign lipomatous neoplasm, unspecified Medications: New sumatriptan succinate do not exceed 8 doses per 24 hrs 25 mg PO Q2-4H PRN 9 tabs 0RF migraine headache 30 days amitriptyline 10 mg PO BEDTIME 90 tabs 1RF 90 days Patient Instructions: - Take the prescribed medication for headache, depression, and to support sleep as directed - Follow up with the supervisor sewing department next week - Proceed with cardiac evaluation as recommended - Avoid triggers like caffeine that exacerbate headaches - Monitor visual disturbances and report any changes - Return for follow-up or sooner if symptoms worsen.
[2024-02-26 15:02] VITALS: BP 122/78; BMI 30.1
[2024-02-27 10:17] VITALS: BP 143/90; PULSE 71; BMI 33.4
--- NOTE | 2024-02-27 10:17 | A.OFFVIS_ITS ---
Vital Signs 02/26/24 15:02 02/27/24 10:17 Height 6 ft 5 ft 5 in Weight 222 lb 201 lb BMI 30.1 33.4 BP 122/78 143/90 H Blood Pressure Location Lt brachial Rt brachial Position Sitting Sitting Pulse 71 Intake Visit Reasons: chest pain/coughing/burning Allergies ibuprofen Allergy (Intermediate, Verified 02/26/24 15:22) GI Bleeding Medication List - Last Reconciled 02/26/24 by Lauren Dejesus MD albuterol sulfate 90 mcg/actuation 2 puffs PO Q4-6H PRN fluticasone propion-salmeterol 230-21 mcg/actuation (Advair HFA) 2 puffs inhalation Q12H PFSH Medical History Mass of joint of right shoulder History of COVID-19 Asthma Melena AYLIN (generalized anxiety disorder) Mild recurrent major depression Overweight (BMI 25.0-29.9) Chest pain Low back pain Pulmonary nodules Surgical History S/P excision of lipoma (12/27/22) Hx of colonoscopy History of esophagogastroduodenoscopy (EGD) History of surgery History of lipoma History of tonsillectomy History of ear surgery Family History Father Hypertension Mother Diabetes Paternal Grandfather Colon cancer Family/Other FH: mental illness Social History (Updated 02/26/24 @ 15:26 by Lauren Dejesus MD) Housing: House Are you a primary career orientation teacher to a significant other at home: No Do you presently have visiting nurse or other home services: No Alcohol intake: current Alcohol intake frequency: holidays/special occasions only Alcohol type: beer, wine and hard liquor Patient Tobacco Use Status: Former Tobacco user Tobacco use type: Cigarette Cigarette Packs Per Day: 1 Years Smoked: 30 e-Cigarette/Vaping Use: Never Used Second Hand Smoke Exposure: No Substance Use Type: Marijuana service: No Current occupational status: employed Current occupational exposures/hazards: No Cognitive needs: No Hearing needs: No Vision needs: No Physical Exam Vital Signs: Last Vital Signs BP 122/78 02/26/24 15:02 BMI result Body Mass Index 30.1 Office Procedures Flu Questionnaire Does the patient have a severe egg allergy?: No Immunizations Fluarix Triv [id number] (PF) 45 mcg (15 mcg x 3)/0.5 mL IM syringe Performing Provider: Lauren Dejesus MD [place] [facility] [facility] Documented (not given) by: GELA Lockhart on 02/26/24 15:14 Reason Not Given: Patient Refused Quality Reporting (2019) Adult ([facility] 138/2/22/69) Body Mass Index: 30.1 Depression/Bipolar (159/160/161/177) PHQ-9: Total score: 6 Assessment & Plan Assessment & Plan (1) New daily persistent headache: Code(s): G44.52 - New daily persistent headache (NDPH) Category: Medical (2) Chest pain: Code(s): R07.9 - Chest pain, unspecified Category: Medical (3) Lipoma: Code(s): D17.9 - Benign lipomatous neoplasm, unspecified Category: Medical (4) Pulmonary nodules: Code(s): R91.8 - Other nonspecific abnormal finding of lung field Category: Medical Orders: Orders CA cardiopulmonary stress test 02/26/24 R07.9 - Chest pain, unspecified Influenza [id number] Immunization 02/26/24 Z23 - Encounter for immunization ECG 12 lead EKG 02/26/24 R07.9 - Chest pain, unspecified Referrals Neurology Referral G44.52 - New daily persistent headache (NDPH) General Surgery Referral D17.9 - Benign lipomatous neoplasm, unspecified Medications: New sumatriptan succinate do not exceed 8 doses per 24 hrs 25 mg PO Q2-4H PRN 9 tabs 0RF migraine headache 30 days amitriptyline 10 mg PO BEDTIME 90 tabs 1RF 90 days Coding Diagnoses New daily persistent headache G44.52 Chest pain R07.9 Lipoma D17.9 Pulmonary nodules R91.8
== END 2024-02-26 15:42 | disposition home or self-care (01) ==
PROVIDERS: PCP Internal Medicine; Visit Provider Internal Medicine
DX: G44.52 New daily persistent headache (NDPH) (principal); R07.9 Chest pain, unspecified; D17.9 Benign lipomatous neoplasm, unspecified; R91.8 Other nonspecific abnormal finding of lung field; Z23 Encounter for immunization

== ENCOUNTER → 2024-02-26 14:48 | Outpatient (BNVA) | payer MEDICARE, MEDICAID, SELFPAY | PROVIDERS: PCP Internal Medicine; Visit Provider Internal Medicine | DX: G44.52 New daily persistent headache (NDPH) (principal); R07.9 Chest pain, unspecified; D17.9 Benign lipomatous neoplasm, unspecified; R91.8 Other nonspecific abnormal finding of lung field | CPT/HCPCS: 90471; 96127; 99212 ==

== ENCOUNTER 2024-03-04 13:46 | Outpatient (AMB) | payer MEDICARE, MEDICAID, SELFPAY ==
[2024-03-04 13:49] VITALS: BP 130/80; PULSE 87; O2SAT 96; BMI 30.6
--- NOTE | 2024-03-04 13:49 | MHC.OFFVIS ---
Vital Signs 03/04/24 13:49 Height 6 ft Weight 225 lb 15.581 oz BMI 30.6 BP 130/80 Blood Pressure Location Rt brachial Position Sitting Pulse 87 Pulse Source Pulse Oximeter Pulse Oximetry (%) 96 Oxygen Delivery Method Room Air Intake Visit Reasons: dyspnea Allergies ibuprofen Allergy (Intermediate, Verified 03/04/24 13:52) GI Bleeding HPI HPI dyspnea: Details: Lokesh is a pleasant 48 year old male, former smoker, quit 6+ months ago with 30+ pack year history, with underlying asthma. At the last visit he reported suboptimal control on Advair 115 mcg and was increased. He reports significant improvement using albuterol MDI infrequently. He denies any visits to urgent care or hospitalizations related to respiratory distress since the last visit. He does note intermittent chest discomfort, awaiting cardiology appt ordered by PCP. Today he presents for routine visit. [facility] Medical History Mass of joint of right shoulder History of COVID-19 Asthma Melena AYLIN (generalized anxiety disorder) Mild recurrent major depression Overweight (BMI 25.0-29.9) Chest pain Low back pain Pulmonary nodules Surgical History S/P excision of lipoma (12/27/22) Hx of colonoscopy History of esophagogastroduodenoscopy (EGD) History of surgery History of lipoma History of tonsillectomy History of ear surgery Family History Father Hypertension Mother Diabetes Paternal Grandfather Colon cancer Family/Other FH: mental illness Social History Housing: House Are you a primary home care attendant to a significant other at home: No Do you presently have visiting nurse or other home services: No Alcohol intake: current Alcohol intake frequency: holidays/special occasions only Alcohol type: beer, wine and hard liquor Patient Tobacco Use Status: Former Tobacco user Tobacco use type: Cigarette Cigarette Packs Per Day: 1 Years Smoked: 30 e-Cigarette/Vaping Use: Never Used Second Hand Smoke Exposure: No Substance Use Type: Marijuana service: No Current occupational status: employed Current occupational exposures/hazards: No Cognitive needs: No Hearing needs: No Vision needs: No Review of Systems Const Denies chills, Denies excessive sweating, Denies fever(s), Denies headache(s) and Denies night sweats Eyes Denies dry eyes, Denies irritation and Denies itchy eyes ENT Reports Normal hearing present, Denies headache(s), Denies nasal congestion, Denies nasal discharge, Denies post nasal drip and Denies sore throat Card Denies chest pain, Denies claudication, Denies leg edema, Reports dyspnea on exertion, Denies orthopnea and Denies paroxysmal nocturnal dyspnea Resp Denies change in phlegm color, Denies chest congestion, Denies excessive phlegm production, Denies pain on inspiration, Denies pain with cough, Reports dyspnea on exertion, Denies stridor and Denies wheezing Musc Denies myalgias Neuro Reports Normal hearing present and Denies headache(s) Endo Denies excessive sweating Yaw/Lymph Denies lymphadenopathy Aller/Immun Denies itchy eyes, Denies seasonal rhinorrhea and Denies wheezing Physical Exam Vital Signs: Last Vital Signs Pulse 87 03/04/24 13:49 BP 130/80 03/04/24 13:49 Pulse Ox 96 03/04/24 13:49 Oxygen Delivery Method Room Air 03/04/24 13:49 BMI result Body Mass Index 30.6 Const General: cooperative, healthy appearing, comfortable, no acute distress, well developed and alert Orientation/consciousness: patient oriented x3 Limitations: no limitations HEENT Head: Yes normal to inspection, Yes normocephalic and Yes atraumatic Ears: hearing grossly normal bilaterally and external ears normal Eyes General: appearance normal, both eyes and all related structures Eyelids: Yes eyelids normal Sclerae: sclerae normal EOM: EOMs intact bilaterally Neck Neck: Yes normal visual inspection and Yes no lymphadenopathy Lymphatic: no lymphadenopathy noted Chest Chest palpation & inspection: normal inspection of the chest Resp Effort & Inspection: normal respiratory effort, able to speak in complete sentences, no audible wheezes, no cough, no stridor, not tachypneic, no tripod positioning and no use of accessory muscles Auscultation: clear to auscultation bilaterally Cardio Jugular venous distension: no JVD Rate: regular rate Rhythm: regular rhythm Skin Other: warm, dry General skin exam: no rashes or lesions noted Neuro General: patient oriented x3 Cranial nerves: Yes Normal hearing present Cognition (Neuro): normal cognition Gait exam (Neuro): Normal gait present Extrem General: Yes normal to inspection, Yes capillary refill normal, Yes no clubbing, cyanosis or edema and Yes no pedal edema Psych Appearance: grossly normal and well kempt Speech and movement: Normal speech and movement present and Clear speech present Affect: normal affect Attitude: cooperative Thought process: Normal thought process present Thought content: Normal thought content present Insight: Good insight present (Psych) Judgement: Good judgement present (Psych) Assessment & Plan Assessment & Plan (1) Asthma: Code(s): J45.909 - Unspecified asthma, uncomplicated Category: Medical (2) Environmental allergies: Code(s): Z91.09 - Other allergy status, other than to drugs and biological substances Category: Medical (3) Personal history of tobacco use: Code(s): Z87.891 - Personal history of nicotine dependence Category: Social Hx Plan Lokesh reports good control on Advair and albuerol MDI, advised to continue. Will follow up in 6 months or sooner if needed. All questions were answered and patient is in agreement of plan. Coding Level of Care Code Est Pt Level 3 (07645) Diagnoses Asthma J45.909 Environmental allergies Z91.09 Personal history of tobacco use Z87.891
== END 2024-03-04 14:22 | disposition home or self-care (01) ==
PROVIDERS: PCP Internal Medicine; Visit Provider Nurse Practitioner Family
DX: J45.909 Unspecified asthma, uncomplicated (principal); Z91.09 Other allergy status, other than to drugs and biological substances; Z87.891 Personal history of nicotine dependence
CPT/HCPCS: 99213

== ENCOUNTER → 2024-03-04 13:46 | Outpatient (BNVA) | payer MEDICARE, MEDICAID, SELFPAY | PROVIDERS: PCP Internal Medicine; Visit Provider Nurse Practitioner Family | DX: J45.909 Unspecified asthma, uncomplicated (principal); R06.00 Dyspnea, unspecified; Z91.09 Other allergy status, other than to drugs and biological substances; Z87.891 Personal history of nicotine dependence; Z79.899 Other long term (current) drug therapy | CPT/HCPCS: 99212 ==

== ENCOUNTER 2024-03-18 12:40 | Outpatient (AMB) | payer MEDICARE, MEDICAID, SELFPAY ==
--- NOTE | 2024-03-18 13:00 | A.OFFVIS_ITS ---
Intake Visit Reasons: Lipoma~ RT abd& Lt antecubital Allergies ibuprofen Allergy (Intermediate, Verified 03/04/24 13:52) GI Bleeding HPI Comments Details: Patient presents here for evaluation of 3 lipomas. To involve his anterior abdominal wall 1 of which is recurrent and wound involves his left antecubital fossa. There are increasing in size, become more symptomatic. He would like to have them excised. Unfortunately he heard some unfortunate news and that his father yesterday and he is flying out to [place] to go deal with this issue. Chart was reviewed and patient evaluated [facility] Medical History Mass of joint of right shoulder History of COVID-19 Asthma Melena AYLIN (generalized anxiety disorder) Mild recurrent major depression Overweight (BMI 25.0-29.9) Chest pain Low back pain Pulmonary nodules Surgical History S/P excision of lipoma (12/27/22) Hx of colonoscopy History of esophagogastroduodenoscopy (EGD) History of surgery History of lipoma History of tonsillectomy History of ear surgery Family History Father Hypertension Mother Diabetes Paternal Grandfather Colon cancer Family/Other FH: mental illness Social History Housing: House Are you a primary palliative care physician to a significant other at home: No Do you presently have visiting nurse or other home services: No Alcohol intake: current Alcohol intake frequency: holidays/special occasions only Alcohol type: beer, wine and hard liquor Patient Tobacco Use Status: Former Tobacco user Tobacco use type: Cigarette Cigarette Packs Per Day: 1 Years Smoked: 30 e-Cigarette/Vaping Use: Never Used Second Hand Smoke Exposure: No Substance Use Type: Marijuana service: No Current occupational status: employed Current occupational exposures/hazards: No Cognitive needs: No Hearing needs: No Vision needs: No Physical Exam GI Other: Patient was to lipomas involving the anterior abdominal wall of the right lower quadrant. One measures 3 x 2 cm. The 2nd 1 more inferior which is over a scar from a previous excision in the past measures also roughly 3 x 2 cm. Extrem Other: Left antecubital fossa has a lipoma measuring roughly 3 x 2 cm. Assessment & Plan Assessment & Plan (1) Multiple lipomas: Code(s): D17.9 - Benign lipomatous neoplasm, unspecified Category: Surgical Plan Current plan is to arrange for a day which is more convenient for the patient for excision of these lesions. He will see me at that time or p.r.n.. All questions answered. Coding Level of Care Code New Pt Level 4 (85642) Diagnoses Multiple lipomas D17.9
== END 2024-03-18 13:04 | disposition home or self-care (01) ==
PROVIDERS: PCP Internal Medicine; Referring Provider Internal Medicine; Visit Provider Surgery
DX: D17.9 Benign lipomatous neoplasm, unspecified (principal)
CPT/HCPCS: 99204

== ENCOUNTER → 2024-03-18 12:40 | Outpatient (BNVA) | payer MEDICARE, MEDICAID, SELFPAY | PROVIDERS: PCP Internal Medicine; Referring Provider Internal Medicine; Visit Provider Surgery | DX: D17.9 Benign lipomatous neoplasm, unspecified (principal) | CPT/HCPCS: 99202 ==

== ENCOUNTER 2024-04-29 08:42 | Outpatient (REF) | payer MEDICAID, SELFPAY | END 2024-04-29 08:43 | disposition home or self-care (01) | LOC: HO.LNP 08:42 | PROVIDERS: PCP Internal Medicine; Visit Provider Surgery | DX: D17.9 Benign lipomatous neoplasm, unspecified (principal) | CPT/HCPCS: 11404; 88304; 99212 ==

== ENCOUNTER 2024-04-29 08:42 | Outpatient (AMB) | payer MEDICAID, SELFPAY ==
--- NOTE | 2024-04-29 09:43 | MHC.OFFVIS ---
Intake Visit Reasons: excision Lipoma Allergies ibuprofen Allergy (Intermediate, Verified 03/04/24 13:52) GI Bleeding Medication List - Last Reconciled 04/29/24 by Keith Millard MD albuterol sulfate 90 mcg/actuation 2 puffs PO Q4-6H PRN amitriptyline 10 mg PO BEDTIME 90 days fluticasone propion-salmeterol 230-21 mcg/actuation (Advair HFA) 2 puffs inhalation Q12H sumatriptan succinate 25 mg PO Q2-4H PRN 30 days HPI Comments Details: Patient presents for follow-up and excision of his to anterior abdominal wall lipomas. One is recurrent. He had this excised several years ago. He was seen by me in the past and now presents for excision. He also has a left forearm lipoma which will be addressed at another time. Risks, benefits, alternatives of abdominal wall lipoma excision x2 were reviewed with the patient and included but not limited to bleeding, infection, recurrence, numbness, pain, scarring the patient wished to proceed. All questions answered. [facility] Medical History Mass of joint of right shoulder History of COVID-19 Asthma Melena AYLIN (generalized anxiety disorder) Mild recurrent major depression Overweight (BMI 25.0-29.9) Chest pain Low back pain Pulmonary nodules Surgical History S/P excision of lipoma (12/27/22) Hx of colonoscopy History of esophagogastroduodenoscopy (EGD) History of surgery History of lipoma History of tonsillectomy History of ear surgery Family History Father Hypertension Mother Diabetes Paternal Grandfather Colon cancer Family/Other FH: mental illness Social History Housing: House Are you a primary pediatric critical care nurse to a significant other at home: No Do you presently have visiting nurse or other home services: No Alcohol intake: current Alcohol intake frequency: holidays/special occasions only Alcohol type: beer, wine and hard liquor Patient Tobacco Use Status: Former Tobacco user Tobacco use type: Cigarette Cigarette Packs Per Day: 1 Years Smoked: 30 e-Cigarette/Vaping Use: Never Used Second Hand Smoke Exposure: No Substance Use Type: Marijuana service: No Current occupational status: employed Current occupational exposures/hazards: No Cognitive needs: No Hearing needs: No Vision needs: No Office Procedures Excision Details: After appropriate positioning, patient underwent 1% lidocaine and Betadine prep to to right mid abdominal wall lipomas premarked. The upper measured roughly 3 x 2 cm the 2nd measured roughly 2 x 2 cm.. Transverse incision was made over each and they were uneventfully excised/enucleated and sent to pathology separately. Each wound was irrigated, secured hemostasis, and closed using running subcuticular 3-0 Vicryl sutures followed by Steri-Strips and sterile dressings. Patient tolerated procedure well. [id number]-[id number]/arms/legs 3.1-4cm Procedure code (CPT) selection complete Office Meds lidocaine 1 %-epinephrine 1:100,000 injection solution Performing Provider: Keith Millard MD [place]forming [place] [facility] Administered by: Keith Millard MD on 04/29/24 09:48 Dose Route Admin Location Dispensed Lot Number Expiration Date [facility] [employer] Wife 30 mL Infiltration 30 mL Assessment & Plan Assessment & Plan (1) Multiple lipomas: Code(s): D17.9 - Benign lipomatous neoplasm, unspecified Category: Surgical Plan: Patient was been given local instructions including avoiding strenuous activities, Tylenol or Motrin p.r.n. pain, ice periodically, may shower in 2 days removing only outside dressing and no strenuous activities. Patient will see me as directed or p.r.n. Orders: Orders AMB Excision Today .9 - Benign lipomatous neoplasm, unspecified Medications: New lidocaine-epinephrine 1 %-1:100,000 30 mL Infiltration ONCE 30 mL 0RF D17.9 - Benign lipomatous neoplasm, unspecified Coding Level of Care Code Est Pt Level 5 (17336) Diagnoses Multiple lipomas D17. CPT Codes Trunk/Arms/Legs - CPT: 11282-lpqeo/arms/legs 3.1-4cm ([id number])
== END 2024-04-29 09:18 | disposition home or self-care (01) ==
PROVIDERS: PCP Internal Medicine; Visit Provider Surgery
DX: D17.9 Benign lipomatous neoplasm, unspecified (principal)
CPT/HCPCS: 11404; 99213

== ENCOUNTER 2024-05-06 09:00 | Outpatient (AMB) | payer MEDICAID, SELFPAY ==
--- NOTE | 2024-05-06 09:03 | MHC.OFFVIS ---
Intake Visit Reasons: s/p excision Lipoma Intake Note: Patient here s/p WLE lipoma X2. A) Rt upper abd B) Rt lower abd. Reports incision healing well. Patient c/o: itch and bruising around incision sites. Air/Ocean Export Clerk Required: No Accompanied by: Self / Same As Patient Allergies ibuprofen Allergy (Intermediate, Verified 05/06/24 09:05) GI Bleeding HPI Comments Details: Patient was to follow up. No wound issues or complaints. Pathologies are benign. [facility] Medical History (Updated 02/26/24 @ 15:33 by Lauren Dejesus MD) Mass of joint of right shoulder History of COVID-19 Asthma Melena AYLIN (generalized anxiety disorder) Mild recurrent major depression Overweight (BMI 25.0-29.9) Chest pain Low back pain Pulmonary nodules Surgical History (Updated 05/06/24 @ 09:53 by Keith Millard MD) S/P excision of lipoma (04/29/24) S/P excision of lipoma (12/27/22) Hx of colonoscopy History of esophagogastroduodenoscopy (EGD) History of surgery History of lipoma History of tonsillectomy History of ear surgery Family History Father Hypertension Mother Diabetes Paternal Grandfather Colon cancer Family/Other FH: mental illness Social History Housing: House Are you a primary career technical supervisor to a significant other at home: No Do you presently have visiting nurse or other home services: No Alcohol intake: current Alcohol intake frequency: holidays/special occasions only Alcohol type: beer, wine and hard liquor Patient Tobacco Use Status: Former Tobacco user Tobacco use type: Cigarette Cigarette Packs Per Day: 1 Years Smoked: 30 e-Cigarette/Vaping Use: Never Used Second Hand Smoke Exposure: No Substance Use Type: Marijuana service: No Current occupational status: employed Current occupational exposures/hazards: No Cognitive needs: No Hearing needs: No Vision needs: No Physical Exam GI Other: Incisions well healed. Some surrounding ecchymosis which is resolving. Assessment & Plan Assessment & Plan (1) Status post excision of lipoma: Code(s): Z98.890 - Other specified postprocedural states; Z86.018 - Personal history of other benign neoplasm Category: Medical Plan Patient has been given local instructions, and will follow-up for excision of the left arm lipoma on a day which is convenient for him. All questions answered. Coding Level of Care Code Global (64697) Diagnoses Status post excision of lipoma Z98.890; Z86.018
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
== END 2024-05-06 09:11 | disposition home or self-care (01) ==
PROVIDERS: PCP Internal Medicine; Visit Provider Surgery
DX: Z98.890 Other specified postprocedural states (principal); Z86.018 Personal history of other benign neoplasm
CPT/HCPCS: 99024

== ENCOUNTER → 2024-05-06 09:00 | Outpatient (BNVA) | payer MEDICAID, SELFPAY | PROVIDERS: PCP Internal Medicine; Visit Provider Surgery | DX: D17.22 Benign lipomatous neoplasm of skin and subcutaneous tissue of left arm (principal); Z09 Encounter for follow-up examination after completed treatment for conditions other than malignant neoplasm; Z98.890 Other specified postprocedural states; Z86.018 Personal history of other benign neoplasm | CPT/HCPCS: 99212 ==

== ENCOUNTER 2024-08-26 13:48 | Outpatient (AMB) | payer MEDICAID, SELFPAY ==
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
[2024-08-26 13:54] VITALS: BP 140/80; PULSE 80; O2SAT 97; BMI 31.5
--- NOTE | 2024-08-26 13:54 | MHC.OFFVIS ---
Vital Signs 08/26/24 13:54 Height 6 ft Weight 232 lb 9.403 oz BMI 31.5 BP 140/80 H Blood Pressure Location Rt brachial Position Sitting Pulse 80 Pulse Source Pulse Oximeter Pulse Oximetry (%) 97 Oxygen Delivery Method Room Air Intake Visit Reasons: Dyspnea Allergies ibuprofen Allergy (Intermediate, Verified 08/26/24 13:56) GI Bleeding HPI HPI Dyspnea: Details: Lokesh is a pleasant 49 year old male, former smoker, quit 6+ months ago with 30+ pack year history, with underlying asthma. At baseline, patient has been using Advair 230 mcg 1 inhalation BID with good effect. He reports over the last three weeks developed increased chest congestion, difficulty expectorating, dry cough after exposure to sick contact with URI. He denies fevers or chills. He did decrease his Advair to 1 inhalation BID after developing what sounds like thrush despite good oral hygiene. He was previously using albuterol MDI frequently but has used less over the last week. He denies any visits to urgent care or hospitalizations related to respiratory distress since the last visit. [facility] Medical History (Updated 02/26/24 @ 15:33 by Lauren Dejesus MD) Mass of joint of right shoulder History of COVID-19 Asthma Melena AYLIN (generalized anxiety disorder) Mild recurrent major depression Overweight (BMI 25.0-29.9) Chest pain Low back pain Pulmonary nodules Surgical History (Updated 05/06/24 @ 09:53 by Keith Millard MD) S/P excision of lipoma (04/29/24) S/P excision of lipoma (12/27/22) Hx of colonoscopy History of esophagogastroduodenoscopy (EGD) History of surgery History of lipoma History of tonsillectomy History of ear surgery Family History Father Hypertension Mother Diabetes Paternal Grandfather Colon cancer Family/Other FH: mental illness Social History Housing: House Are you a primary adult care manager to a significant other at home: No Do you presently have visiting nurse or other home services: No Alcohol intake: current Alcohol intake frequency: holidays/special occasions only Alcohol type: beer, wine and hard liquor Patient Tobacco Use Status: Former Tobacco user Tobacco use type: Cigarette Cigarette Packs Per Day: 1 Years Smoked: 30 e-Cigarette/Vaping Use: Never Used Second Hand Smoke Exposure: No Substance Use Type: Marijuana service: No Current occupational status: employed Current occupational exposures/hazards: No Cognitive needs: No Hearing needs: No Vision needs: No Review of Systems Const Denies chills, Denies excessive sweating, Denies fever(s), Denies headache(s) and Denies night sweats Eyes Denies dry eyes, Denies irritation and Denies itchy eyes ENT Reports Normal hearing present, Denies headache(s), Reports nasal congestion, Denies nasal discharge, Denies post nasal drip and Denies sore throat Card Denies chest pain, Denies claudication, Denies leg edema, Reports dyspnea on exertion, Denies orthopnea and Denies paroxysmal nocturnal dyspnea Resp Denies change in phlegm color, Reports chest congestion, Reports cough, Denies hemoptysis, Denies excessive phlegm production, Denies pain on inspiration, Denies pain with cough, Reports dyspnea on exertion, Denies stridor and Denies wheezing Musc Denies myalgias Neuro Reports Normal hearing present and Denies headache(s) Endo Denies excessive sweating Yaw/Lymph Denies lymphadenopathy Aller/Immun Denies itchy eyes, Denies seasonal rhinorrhea and Denies wheezing Physical Exam Vital Signs: Last Vital Signs Pulse 80 08/26/24 13:54 BP 140/80 H 08/26/24 13:54 Pulse Ox 97 08/26/24 13:54 Oxygen Delivery Method Room Air 08/26/24 13:54 BMI result Body Mass Index 31.5 Const General: cooperative, healthy appearing, comfortable, no acute distress, well developed and alert Orientation/consciousness: patient oriented x3 Limitations: no limitations HEENT Head: Yes normal to inspection, Yes normocephalic and Yes atraumatic Ears: hearing grossly normal bilaterally and external ears normal Eyes General: appearance normal, both eyes and all related structures Eyelids: Yes eyelids normal Sclerae: sclerae normal EOM: EOMs intact bilaterally Neck Neck: Yes normal visual inspection and Yes no lymphadenopathy Lymphatic: no lymphadenopathy noted Chest Chest palpation & inspection: normal inspection of the chest Resp Effort & Inspection: normal respiratory effort, able to speak in complete sentences, no audible wheezes, no cough, no stridor, not tachypneic, no tripod positioning and no use of accessory muscles Auscultation: clear to auscultation bilaterally Cardio Jugular venous distension: no JVD Rate: regular rate Rhythm: regular rhythm Skin Other: warm, dry General skin exam: no rashes or lesions noted Neuro General: patient oriented x3 Cranial nerves: Yes Normal hearing present Cognition (Neuro): normal cognition Gait exam (Neuro): Normal gait present Extrem General: Yes normal to inspection, Yes capillary refill normal, Yes no clubbing, cyanosis or edema and Yes no pedal edema Psych Appearance: grossly normal and well kempt Speech and movement: Normal speech and movement present and Clear speech present Affect: normal affect Attitude: cooperative Thought process: Normal thought process present Thought content: Normal thought content present Insight: Good insight present (Psych) Judgement: Good judgement present (Psych) Assessment & Plan Assessment & Plan (1) Asthma: Code(s): J45.909 - Unspecified asthma, uncomplicated Category: Medical (2) Environmental allergies: Code(s): Z91.09 - Other allergy status, other than to drugs and biological substances Category: Medical (3) Personal history of tobacco use: Code(s): Z87.891 - Personal history of nicotine dependence Category: Social Hx Plan Will treat bronchitic symptoms with azithromycin. He is aware to call if symptoms do not improve. Encouraged patient to increase Advair back to 2 inhalations BID for the next few weeks and trial decreasing after recovering from bronchitic symptoms. Prior chest CT revealed stable pulmonary nodule <3mm, has upcoming Chest CT scheduled in December to assess stability given smoking history. PFT unfortunately never scheduled despite order being placed previously. He now has PFT scheduled for 10/2024. All questions were answered and patient is in agreement of plan. Will follow up to review results or sooner if needed. Medications: New azithromycin For 250 mg dose pack: take 500 mg today (day 1), then 250 mg for 4 days (days 2-5) PO 6 tabs 0RF Refilled fluticasone propion-salmeterol 230-21 mcg/actuation (Advair HFA) 2 puffs inhalation Q12H 1 ea 6RF albuterol sulfate 90 mcg/actuation 2 puffs PO Q4-6H PRN 1 ea 3RF for wheezing Coding Level of Care Code Est Pt Level 4 (62991) Diagnoses Asthma J45.909 Environmental allergies Z91.09 Personal history of tobacco use Z87.891
== END 2024-08-26 14:35 | disposition home or self-care (01) ==
LOC: HO.HPS 13:48
PROVIDERS: PCP Internal Medicine; Visit Provider Nurse Practitioner Family
DX: J45.909 Unspecified asthma, uncomplicated (principal); Z91.09 Other allergy status, other than to drugs and biological substances; Z87.891 Personal history of nicotine dependence
CPT/HCPCS: 99214

== ENCOUNTER → 2024-08-26 13:48 | Outpatient (BNVA) | payer MEDICAID, SELFPAY | PROVIDERS: PCP Internal Medicine; Visit Provider Nurse Practitioner Family | DX: J45.909 Unspecified asthma, uncomplicated (principal); Z91.09 Other allergy status, other than to drugs and biological substances; Z87.891 Personal history of nicotine dependence | CPT/HCPCS: 99212 ==

== ENCOUNTER 2024-09-02 19:35 | Emergency (ER) | payer OTHER, SELFPAY ==
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
[2024-09-02 19:40] VITALS: BP 142/97; BP 160/100; PULSE 103; PULSE 92; RESP 18; TEMP 36.6; O2SAT 96; O2SAT 97; BMI 31.4
[2024-09-02 20:03] LABS: MANUAL DIFF FLAG NO
[2024-09-02 20:04] LABS: Basophils Absolute Auto 0.1 X10*3/uL (0.0-0.2); Basophils Percent Auto 0.7 % (0-2); Eosinophils Absolute Auto 0.2 X10*3/uL (0.0-0.4); Eosinophils Percent Auto 1.6 % (0-4); Hematocrit 43.7 % (42.0-52.0); Hemoglobin 15.3 g/dl (14.0-18.0); Imm Gran Abs Auto 0.08 X10*3/uL (0.00-0.03); Imm Gran Pct Auto 0.8 % (0.0-0.4); Lymphocytes Absolute Auto 3.9 X10*3/uL (1.2-4.9); Mean Corpuscular Hemoglobin 31.3 pg (27.0-33.0); Mean Corpuscular Volume 89.4 fL (80.0-98.0); Mean Platelet Volume 10.7 fL (9.4-12.4); Monocytes Absolute Auto 1.1 X10*3/uL (0.1-1.2); Monocytes Percent Auto 11.6 % (2-11); Neutrophils Absolute Auto 4.6 x10*3/uL (2.0-8.3); Neutrophils Percent Auto 46.3 % (45-73); Platelet Count 276 X10*3/uL (160-400); Red Blood Count 4.89 X10*6/uL (4.60-5.80); Red Cell Distribution Width 11.7 % (11.0-16.0); White Blood Count 9.9 X10*3/uL (4.8-10.8)
[2024-09-02] MEDS: Morphine Sulfate 4 MG/ML CARTRIDGE IVPUSH ×2 (20:06→21:32)
[2024-09-02] MEDS: ondansetron HCL 4 MG/2 ML VIAL IVPUSH (20:07)
[2024-09-02] MEDS: Lidocaine HCl 1 % 20 ML VIAL 10 ML INFILTRATI (20:10)
[2024-09-02 20:18] LABS: Alanine Aminotransferase 33 U/L (0-40); Albumin Level 4.6 g/dL (3.5-5.0); Alkaline Phosphatase 70 U/L (39-117); Anion Gap 22 (12-20); Aspartate Amino Transferase 26 U/L (5-37); Bilirubin Total 0.4 mg/dL (0.0-1.0); Blood Urea Nitrogen 10 mg/dL (9-16); Carbon Dioxide 15 mmol/L (22-29); Chloride 108 mmol/L (96-108); Creatinine Clr Calc Pharmacy 85.5; Estimated Glomerular Filt Rate 59; Ethanol 87 mg/dL; Glucose Random 87 mg/dL (60-115); Potassium 3.7 mmol/L (3.3-5.1); Sodium 141 mmol/L (135-145); Total Protein 7.2 g/dL (6.5-8.0)
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
[2024-09-02] MEDS: iohexoL 350 MG/ML 100 ML INFUS..BTL IV (20:50)
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
[2024-09-02 21:26] VITALS: BP 140/93; PULSE 78; RESP 17; O2SAT 94
[2024-09-02 22:35] VITALS: BP 140/93; PULSE 78; RESP 17; TEMP 36.7; O2SAT 94
== END 2024-09-02 22:39 | disposition home or self-care (01) ==
PROVIDERS: Emergency Provider Emergency Medicine
DX: S06.0X0A Concussion without loss of consciousness, initial encounter (principal); S51.011A Laceration without foreign body of right elbow, initial encounter; S80.01XA Contusion of right knee, initial encounter; Y08.02XA Assault by strike by baseball bat, initial encounter; Y93.89 Activity, other specified; Y92.414 Local residential or business street as the place of occurrence of the external cause; Y99.9 Unspecified external cause status; F17.210 Nicotine dependence, cigarettes, uncomplicated; F12.90 Cannabis use, unspecified, uncomplicated
CPT/HCPCS: 12001; 36415; 70450; 71260; 72125; 73560; 74177; 80053; 80307; 85025; 85610; 96374; 96375; 96376; 99284; J2003; J2270; J2405; Q9967

== ENCOUNTER → 2024-09-02 20:00 | Outpatient (BNV) | payer OTHER, SELFPAY | PROVIDERS: Emergency Provider Emergency Medicine; Visit Provider Radiology Neuroradiology | DX: R10.2 Pelvic and perineal pain (principal); R91.1 Solitary pulmonary nodule; M99.61 Osseous and subluxation stenosis of intervertebral foramina of cervical region; G44.309 Post-traumatic headache, unspecified, not intractable; M17.11 Unilateral primary osteoarthritis, right knee | CPT/HCPCS: 70450; 71260; 72125; 73560; 74177 ==

== ENCOUNTER 2024-10-07 10:41 | Outpatient (AMB) | payer OTHER, SELFPAY ==
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
[2024-10-07 11:00] VITALS: BP 142/90; BMI 32.0
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
== END 2024-10-07 11:34 | disposition home or self-care (01) ==
LOC: HO.HMCH 10:42
PROVIDERS: Visit Provider Internal Medicine
DX: Z00.00 Encounter for general adult medical examination without abnormal findings (principal); R07.9 Chest pain, unspecified; F33.0 Major depressive disorder, recurrent, mild; F43.10 Post-traumatic stress disorder, unspecified

== ENCOUNTER → 2024-10-07 10:41 | Outpatient (BNVA) | payer OTHER, SELFPAY | PROVIDERS: Visit Provider Internal Medicine | DX: Z00.00 Encounter for general adult medical examination without abnormal findings (principal); F43.10 Post-traumatic stress disorder, unspecified; F33.0 Major depressive disorder, recurrent, mild; R07.9 Chest pain, unspecified; S06.0XAA Concussion with loss of consciousness status unknown, initial encounter; X58.XXXA Exposure to other specified factors, initial encounter; Y93.9 Activity, unspecified; Y92.9 Unspecified place or not applicable; Y99.9 Unspecified external cause status | CPT/HCPCS: 96127; 99212; 99396 ==

== ENCOUNTER 2024-10-16 08:56 | Outpatient (REF) | payer OTHER, SELFPAY ==
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
--- NOTE | 2024-10-16 14:28 | PFT_ITS ---
Indication: Asthma Spirometry FEV1 to FVC 76%; FEV1 3.67 L; FVC 4.84 L. No significant response to bronchodilators noted. Lung Volumes Total lung capacity 80% predicted; expiratory reserve volume 20% predicted Diffusion Capacity DLCO 81% predicted Comparisons none Interpretation No obstructive nor restrictive ventilatory defects identified. No significant response to bronchodilators noted. Lung volumes are normal except for decrease in the expiratory reserve volume secondary to an elevated BMI. Diffusing capacity is low normal. Clinical correlation warranted. MTDD
== END 2024-10-16 08:57 | disposition home or self-care (01) ==
LOC: HO.RESP 08:56
PROVIDERS: PCP Internal Medicine; Visit Provider Nurse Practitioner Family
DX: J45.909 Unspecified asthma, uncomplicated (principal)
CPT/HCPCS: 94010; 94640; 94727; 94729

== ENCOUNTER → 2024-10-16 14:28 | Outpatient (BNV) | payer OTHER, SELFPAY | PROVIDERS: PCP Internal Medicine; Visit Provider Hospitalist | DX: J45.909 Unspecified asthma, uncomplicated (principal) | CPT/HCPCS: 94060; 94727; 94729 ==

== ENCOUNTER 2024-11-07 07:39 | Outpatient (AMB) | payer OTHER, SELFPAY ==
--- OUTSIDE RECORDS SUMMARY | 2024-11-07 07:41 | XMS_ITS | Clinical Summary ---
[facility] Organization [facility] Address [address] [place] [address] Care Team Providers Care Dermatological Surgeon Name Role Phone Celi Pichardo MD Primary [...] Panel) 05/05/2023 Colorectal Cancer Screening: Colonoscopy 05/05/2023 HIV Screening 05/05/2023 Hepatitis C Screening 05/05/2023 Social Influencers of Health Screening 05/05/2023 COVID-19 Vaccine ( - 2023-2 5 season) 2023 Depression Screening 2024 Influenza Vaccine (#1) 2024 HIB Vaccines Aged [...] age to complete this topic Care Teams Dermatological Surgeon Relationship Specialty Start Date End Date Celi Pichardo MD Need Updated Address PCP - General 07/09/07
[2024-11-07 07:50] VITALS: BP 140/98; PULSE 74; O2SAT 98; BMI 31.1
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
== END 2024-11-07 08:34 | disposition home or self-care (01) ==
LOC: HO.HSMS 07:39
PROVIDERS: PCP Internal Medicine; Visit Provider Psychiatry & Neurology Neurology
DX: R06.81 Apnea, not elsewhere classified (principal); G47.10 Hypersomnia, unspecified; F07.81 Postconcussional syndrome; G43.E19 Chronic migraine with aura, intractable, without status migrainosus; R06.83 Snoring
CPT/HCPCS: 99204

== ENCOUNTER → 2024-11-07 07:39 | Outpatient (BNVA) | payer OTHER, SELFPAY | PROVIDERS: PCP Internal Medicine; Visit Provider Psychiatry & Neurology Neurology | DX: M54.2 Cervicalgia (principal); F07.81 Postconcussional syndrome; G43.E19 Chronic migraine with aura, intractable, without status migrainosus; R06.83 Snoring; G47.10 Hypersomnia, unspecified; R06.81 Apnea, not elsewhere classified | CPT/HCPCS: 99202 ==

== ENCOUNTER 2024-11-25 08:50 | Outpatient (AMB) | payer OTHER, SELFPAY ==
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
== END 2024-11-25 10:07 | disposition home or self-care (01) ==
LOC: HO.HSM 08:51
PROVIDERS: PCP Internal Medicine; Referring Provider Internal Medicine; Visit Provider Psychiatry & Neurology Neurology
DX: G43.009 Migraine without aura, not intractable, without status migrainosus (principal); R20.0 Anesthesia of skin
CPT/HCPCS: 99214

== ENCOUNTER 2024-12-30 09:42 | Outpatient (AMB) | payer OTHER, SELFPAY ==
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
[2024-12-30 09:46] VITALS: BP 138/92; PULSE 72; O2SAT 98; BMI 31.1
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
== END 2024-12-30 10:26 | disposition home or self-care (01) ==
LOC: HO.HPS 09:43
PROVIDERS: PCP Internal Medicine; Visit Provider Nurse Practitioner Family
DX: J45.909 Unspecified asthma, uncomplicated (principal); Z91.09 Other allergy status, other than to drugs and biological substances; Z87.891 Personal history of nicotine dependence
CPT/HCPCS: 99214

== ENCOUNTER → 2024-12-30 09:42 | Outpatient (BNVA) | payer OTHER, SELFPAY | PROVIDERS: PCP Internal Medicine; Visit Provider Nurse Practitioner Family | DX: J45.909 Unspecified asthma, uncomplicated (principal); Z91.09 Other allergy status, other than to drugs and biological substances; Z87.891 Personal history of nicotine dependence | CPT/HCPCS: 99212 ==

== ENCOUNTER → 2025-01-13 19:30 | Outpatient (REF) | payer OTHER, SELFPAY ==
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
== END ==
LOC: HO.SL 19:30
PROVIDERS: PCP Internal Medicine; Visit Provider Psychiatry & Neurology Neurology
DX: R06.83 Snoring (principal); G47.10 Hypersomnia, unspecified; R06.81 Apnea, not elsewhere classified
CPT/HCPCS: 95810

== ENCOUNTER → 2025-01-13 21:46 | Outpatient (BNV) | payer OTHER, SELFPAY | PROVIDERS: PCP Internal Medicine; Visit Provider Psychiatry & Neurology Neurology | DX: G47.33 Obstructive sleep apnea (adult) (pediatric) (principal) | CPT/HCPCS: 95810 ==

== ENCOUNTER 2025-02-10 10:13 | Outpatient (AMB) | payer OTHER, SELFPAY ==
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
[2025-02-10 10:18] VITALS: BP 140/90; PULSE 87; O2SAT 97; BMI 31.7
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
== END 2025-02-10 11:06 | disposition home or self-care (01) ==
LOC: HO.HSMS 10:14
PROVIDERS: PCP Internal Medicine; Visit Provider Physician Assistant Medical
DX: G43.E09 Chronic migraine with aura, not intractable, without status migrainosus (principal); F07.81 Postconcussional syndrome; R06.83 Snoring; G47.10 Hypersomnia, unspecified; R06.81 Apnea, not elsewhere classified; R53.82 Chronic fatigue, unspecified; G47.33 Obstructive sleep apnea (adult) (pediatric); Z99.89 Dependence on other enabling machines and devices
CPT/HCPCS: 99214

== ENCOUNTER → 2025-02-10 10:13 | Outpatient (BNVA) | payer OTHER, SELFPAY | PROVIDERS: PCP Internal Medicine; Visit Provider Physician Assistant Medical | DX: G43.E09 Chronic migraine with aura, not intractable, without status migrainosus (principal); F07.81 Postconcussional syndrome; G47.10 Hypersomnia, unspecified; R06.83 Snoring; R53.82 Chronic fatigue, unspecified; G47.33 Obstructive sleep apnea (adult) (pediatric); Z99.89 Dependence on other enabling machines and devices | CPT/HCPCS: 99212 ==

== ENCOUNTER 2025-02-17 12:44 | Outpatient (AMB) | payer OTHER, SELFPAY ==
[2025-02-17 12:52] VITALS: BP 114/68; PULSE 77; BMI 31.8
--- NOTE | 2025-02-17 12:52 | MHC.OFFVIS ---
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 Required: No Accompanied by: Self / Same As Patient Allergies ibuprofen Allergy (Intermediate, Verified 02/17/25 12:57) GI Bleeding Medication List - Last Reconciled 02/17/25 by Henrik Gould MD Advair HFA 230-21 mcg/actuation (fluticasone propion-salmeterol) 2 puffs inhalation Q12H NS albuterol sulfate 90 mcg/actuation 2 puffs PO Q4-6H PRN amitriptyline 25 mg PO BEDTIME cyclobenzaprine 10 mg PO TID PRN magnesium oxide 400 mg PO BEDTIME riboflavin (vitamin B2) 400 mg PO QAM sumatriptan succinate 100 mg orally one a day as needed PRN; do not exceed 2 doses per 24 hrs 30 days MDD 200mg HPI Comments Details: Lokesh was referred here for precordial chest pain. He has 2 different kinds of chest pains. He said he gets 1 chest pain which is sharp in nature which happens intermittently sometimes wakes him up from sleep but mostly happens with stress very feels sharp pain in his precordial area radiating now in his left arm. Symptoms then can last up to a day. Symptoms are not reproducible provide deep breathing or coughing. These are also not reproducible by touch. He also had came in with the chest pain today which is similar but sharp in nature but said this is going on for about a week. This is reproducible by pressure or touching on it and reproducible on movement. He understands that this could be musculoskeletal in nature. Said this pain has been bothering for few years. The 1st kind of chest pain has been intermittent. Patient denies any exertional chest pain. 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 He denies any shortness of breath, orthopnea, PND. Does have occasional palpitations. He had not leading to his chest pain syndrome. He has no significant risk factors for premature coronary artery disease. PENDING SALE TO [facility] Medical History Migraine Witnessed apneic spells Hypersomnia Snoring Chronic migraine with aura Post-concussion syndrome Mass of joint of right shoulder History of COVID-19 Asthma Melena AYLIN (generalized anxiety disorder) Mild recurrent major depression Overweight (BMI 25.0-29.9) Chest pain Low back pain Pulmonary nodules Surgical History S/P excision of lipoma (04/29/24) S/P excision of lipoma (12/27/22) Hx of colonoscopy History of esophagogastroduodenoscopy (EGD) History of surgery History of lipoma History of tonsillectomy History of ear surgery Family History Father Hypertension Heart attack Mother Diabetes Paternal Grandfather Colon cancer Family/Other FH: mental illness Social History Housing: House Are you a primary career manager to a significant other at home: No Do you presently have visiting nurse or other home services: No Alcohol intake: current Alcohol intake frequency: holidays/special occasions only Alcohol type: beer, wine and hard liquor Patient Tobacco Use Status: Former Tobacco user Tobacco use type: Cigarette Cigarette Packs Per Day: 1 Years Smoked: 30 e-Cigarette/Vaping Use: Never Used Second Hand Smoke Exposure: No Substance Use Type: Marijuana service: No Current occupational status: employed Current occupational exposures/hazards: No Cognitive needs: No Hearing needs: No Vision needs: No Review of Systems Const Denies daytime sleepiness, Denies difficulty sleeping, Denies snoring, Denies stops breathing during sleep and Denies weakness Card Reports chest pain, Denies rapid heart rate, Denies irregular heart rhythm, Denies claudication, Denies leg edema, Denies lightheadedness, Reports palpitations, Reports dyspnea, Denies dyspnea on exertion, Denies orthopnea, Denies paroxysmal nocturnal dyspnea and Denies slow heart rate Resp Denies cough, Reports dyspnea, Denies dyspnea on exertion and Denies snoring GI Reports no additional complaints, Denies hematochezia, Denies change in stool character and Denies dyspepsia Musc Denies abnormal gait, Denies muscle weakness and Denies numbness Neuro Denies abnormal gait, Denies numbness and Denies weakness Endo Reports palpitations Physical Exam Vital Signs: Last Vital Signs Pulse 77 02/17/25 12:52 BP 114/68 02/17/25 12:52 BMI result Body Mass Index 31.8 Const General: cooperative, comfortable, no acute distress, well developed, alert, awake and Physically active Nutritional Appearance: average body habitus and well nourished Orientation/consciousness: patient oriented x3 Limitations: no limitations HEENT Head: Yes normocephalic and Yes atraumatic Neck Neck: Yes trachea midline, Yes supple and Yes no JVD Resp Effort & Inspection: normal respiratory effort Auscultation: clear to auscultation bilaterally Cardio Jugular venous distension: no JVD Palpation: normal PMI Rate: regular rate Rhythm: regular rhythm Heart sounds: S1 normal heart sound present, S2 normal heart sound present, no click, no gallops, no murmurs and no rubs GI Auscultation: normal bowel sounds Skin General skin exam: no rashes or lesions noted Neuro General: patient oriented x3 and no focal motor deficits Extrem General: Yes no clubbing, cyanosis or edema Psych Appearance: grossly normal Office Procedures EKG Details: EKG shows normal sinus rhythm normal EKGs 10216-[id number], Complete Assessment & Plan Assessment & Plan (1) Chest pain: Code(s): R07.9 - Chest pain, unspecified Category: Medical Plan: Atypical chest pain this middle-aged man induced by stress. He has no exertional chest pain. Seems most likely musculoskeletal although given his age and and triggers would rule out obstructive coronary artery disease. She would suggest a treadmill stress test to assess for myocardial ischemia. Also suggest an echocardiogram to evaluate for cardiac structure and function and any other abnormalities that may explain in his chest pain syndrome. If these tests are negative would suggest a coronary calcium score for further evaluation for coronary atherosclerosis. Will follow up in the clinic if need be. Thank you for allowing me to partake in his care Orders: Orders CA stress test Today R07.9 - Chest pain, unspecified CA echo transthoracic complete Today R07.9 - Chest pain, unspecified CT Coronary Calcium Score 4 Weeks E78.5 - Hyperlipidemia, unspecified, R07.9 - Chest pain, unspecified Coding Level of Care Code New Pt Level 3 (98472) Complex EM visit Add On G2211 Diagnoses Chest pain R07.9 CPT Codes EKG - CPT: 42795-[id number], Complete ([id number])
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
== END 2025-02-17 13:17 | disposition home or self-care (01) ==
LOC: HO.HCS 12:45
PROVIDERS: PCP Internal Medicine; Visit Provider Internal Medicine Cardiovascular Disease
DX: R07.9 Chest pain, unspecified (principal)
CPT/HCPCS: 93010; 99213

== ENCOUNTER → 2025-02-17 12:44 | Outpatient (BNVA) | payer OTHER, SELFPAY | PROVIDERS: PCP Internal Medicine; Visit Provider Internal Medicine Cardiovascular Disease | DX: R07.9 Chest pain, unspecified (principal); E78.5 Hyperlipidemia, unspecified | CPT/HCPCS: 93005; 99212 ==

== ENCOUNTER 2025-02-23 00:51 | Emergency (ER) | payer OTHER, SELFPAY ==
--- NOTE | 2025-02-23 | ECG_ITS ---
Test Reason : CHEST PAIN Blood Pressure : */* mmHG Vent. Rate : 63 BPM Atrial Rate : 63 BPM P-R Int : 138 ms QRS Dur : 94 ms QT Int : 384 ms P-R-T Axes : 19 -24 -4 degrees QTcB Int : 392 ms Normal sinus rhythm Normal ECG When compared with ECG of 17-Feb-2024 13:29, No significant change was found Referred By: Generic ED Physician Electronically Signed By: IRLANDA GONSALEZ MD
--- NOTE | ~2025-02-23 | XR_ITS ---
CLINICAL HISTORY: chest pain, sob 1 view chest x-ray Comparison: CT/SR - CT CHEST W IV CON - 09/02/24 20:34 EDT Findings: No consolidation or effusion. Mild asymmetric elevation of the right hemidiaphragm. Normal size heart. No acute fracture. IMPRESSION: 1. No acute findings. This document has been electronically signed by: Jorge Frankel MD on 02/23/2025 02:47:31
[2025-02-23 01:10] VITALS: BP 123/74; PULSE 65; RESP 24; TEMP 36.4; O2SAT 98; BMI 4615.1
[2025-02-23 01:45] LABS: MANUAL DIFF FLAG NO
[2025-02-23 01:47] LABS: Hematocrit 43.0 % (42.0-52.0); Hemoglobin 14.3 g/dl (14.0-18.0); Imm Gran Abs Auto 0.04 X10*3/uL (0.00-0.03); Imm Gran Pct Auto 0.5 % (0.0-0.4); Lymphocytes Absolute Auto 2.7 X10*3/uL (1.2-4.9); Mean Corpuscular HGB Conc 33.3 g/dl (31.0-36.0); Mean Corpuscular Hemoglobin 31.1 pg (27.0-33.0); Mean Corpuscular Volume 93.5 fL (80.0-98.0); NRBC Abs Auto 0.000 X10*3/uL (0.0-0.012); NRBC Pct Auto 0.0 /100WBC (0.0-0.2); Platelet Count 194 X10*3/uL (160-400); Red Blood Count 4.60 X10*6/uL (4.60-5.80); White Blood Count 7.3 X10*3/uL (4.8-10.8)
[2025-02-23 01:59] LABS: Alanine Aminotransferase 41 U/L (0-40); Albumin Level 4.0 g/dL (3.5-5.0); Alkaline Phosphatase 67 U/L (39-117); Anion Gap 11 (12-20); Aspartate Amino Transferase 32 U/L (5-37); Blood Urea Nitrogen 18 mg/dL (9-16); Calcium 8.6 mg/dL (8.4-10.2); Carbon Dioxide 19 mmol/L (22-29); Chloride 111 mmol/L (96-108); Creatinine Clr Calc Pharmacy -2.1; Estimated Glomerular Filt Rate > 60; Lipase 27 U/L (8-78); Magnesium 2.0 mg/dL (1.6-2.6); Potassium 4.2 mmol/L (3.3-5.1); Sodium 137 mmol/L (135-145); Total Protein 6.4 g/dL (6.5-8.0)
[2025-02-23 02:06] LABS: Troponin-I High Sensitivity < 2.7 ng/L (<3.5-35.0)
[2025-02-23] MEDS: diazePAM 10 MG/2 ML CARTRIDGE 5 MG IVPUSH (02:10)
[2025-02-23 02:24] LABS: NT Pro B Type Natriuretic Pept < 15.8 pg/mL (<300)
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
[2025-02-23 02:53] LABS: Resp Syncy Virus RNA Qual PCR NEGATIVE (Negative); SARS COV2 PCR INHOUSE NEGATIVE (Negative)
[2025-02-23 03:04] VITALS: BP 130/75; PULSE 63; RESP 14; O2SAT 97
--- NOTE | 2025-02-23 03:06 | ED.CHESTPAIN ---
HPI - Chest Pain General Chief Complaint: Chest Pain Stated Complaint: Sob, CP, abd pain Time Seen by Provider: 02/23/25 01:35 Source: patient Limitations: no limitations History of Present Illness ED Provider: Josi Bojorquez PA-C HPI narrative: 49-year-old male with a history of asthma, who vapes, chronic migraine, GERD, anxiety and depression, PTSD who presents with cough and cold symptoms x1 week. Patient states he has had ongoing cough with wheezing at home. Unclear if he has had fevers, no sick contacts with similar symptoms. Patient states he has developed left-sided chest wall pain that radiates to the back. Pain worse with palpation of chest wall and movement of torso, worse with inspiration. He states he is splinting when he breathes. Denies new activity or heavy lifting that could have also contributed to his symptoms. Patient has some degree of left upper quadrant discomfort as well. Denies alcohol abuse history, nausea, vomiting, or prior pancreatitis. Related Data Previous Rx's ?Medication ?Instructions ?Recorded albuterol sulfate 90 mcg/actuation 2 puff PO Q4-6H PRN for wheezing 08/26/24 aerosol inhaler #1 ea Advair HFA 230 mcg-21 2 puff inhalation Q12H #12 grams 10/24/24 mcg/actuation aerosol inhaler (fluticasone propion-salmeterol) amitriptyline 25 mg tablet 25 mg PO BEDTIME #30 tabs 02/10/25 cyclobenzaprine 10 mg tablet 10 mg PO TID PRN muscle spasm #10 02/10/25 tabs magnesium oxide 400 mg (241.3 mg 400 mg PO BEDTIME #30 tabs 02/10/25 magnesium) tablet riboflavin (vitamin B2) 400 mg 400 mg PO QAM #30 tabs 02/10/25 tablet sumatriptan succinate 100 mg tablet 100 mg PO .COMPLEX PRN migraine 02/10/25 headache 30 days #10 tabs ketorolac 10 mg tablet 10 mg PO Q6H PRN pain #20 tabs 02/23/25 methocarbamol 750 mg tablet 1,500 mg (2 x 750 mg) PO Q8H PRN 02/23/25 pain, moderate #24 tabs prednisone 20 mg tablet 40 mg (2 x 20 mg) PO DAILY #10 tabs 02/23/25 Allergies Allergy/AdvReac Type Severity Reaction Status Date / Time ibuprofen Allergy Intermediate GI Bleeding Verified 02/23/25 01:12 Review of Systems Review of Systems: Yes all other systems are reviewed and are negative Constitutional: Constitutional: Denies fatigue and Denies fever(s) ENT: Reports nasal congestion Cardiovascular: Cardiovascular: Reports chest pain and Denies dyspnea Respiratory: Respiratory: Denies chest congestion, Reports cough, Denies dyspnea and Reports wheezing Gastrointestinal: Gastrointestinal: Reports abdominal pain, Denies nausea and Denies vomiting Endocrine: Endocrine: Denies fatigue Allergic/Immunologic: Allergic/Immunologic: Reports wheezing PMFSH Past Medical History Attestation statement: The following information was validated with the patient. Medical History Migraine Witnessed apneic spells Hypersomnia Snoring Chronic migraine with aura Post-concussion syndrome Mass of joint of right shoulder History of COVID-19 Asthma Melena AYLIN (generalized anxiety disorder) Mild recurrent major depression Overweight (BMI 25.0-29.9) Chest pain Low back pain Pulmonary nodules Surgical History S/P excision of lipoma (04/29/24) S/P excision of lipoma (12/27/22) Hx of colonoscopy History of esophagogastroduodenoscopy (EGD) History of surgery History of lipoma History of tonsillectomy History of ear surgery Family History Family History Father Hypertension Heart attack Mother Diabetes Paternal Grandfather Colon cancer Family/Other FH: mental illness Social History Social History Housing: House Are you a primary home care consultant to a significant other at home: No Do you presently have visiting nurse or other home services: No Alcohol intake: current Alcohol intake frequency: holidays/special occasions only Alcohol type: beer, wine and hard liquor Patient Tobacco Use Status: Former Tobacco user Tobacco use type: Cigarette Cigarette Packs Per Day: 1 Years Smoked: 30 e-Cigarette/Vaping Use: Never Used Second Hand Smoke Exposure: No Substance Use Type: Marijuana Advance Directives: No Advance Directives Information Provided: Yes service: No Current occupational status: employed Current occupational exposures/hazards: No Cognitive needs: No Hearing needs: No Vision needs: No Physical Exam Vital Signs: Vital Signs: Last Vital Signs Temp 97.5 F 02/23/25 01:10 Pulse 63 02/23/25 03:04 Resp 14 02/23/25 03:04 BP 130/75 02/23/25 03:04 Pulse Ox 97 02/23/25 03:04 O2 Del Method Room Air 02/23/25 03:04 BMI result Body Mass Index 4615.1 Const: Other: Alert Orientation/consciousness: patient oriented x3 Chest: Other: Significant tenderness to palpation across anterolateral left chest wall minimal guarding Resp: Other: Patient initially splinting with inspiration, with deep breathing, lungs are clear to auscultation no wheezing no active cough Cardio: Other: Normal peripheral perfusion GI: Other: Mild left upper quadrant tenderness no guarding abdomen is otherwise soft nondistended Skin: Other: Warm dry no rash Neuro: General: patient oriented x3, gait normal, no focal motor deficits and CN's II-XI intact bilaterally Psych: Other: Cooperative Course Reevaluation(s) Reevaluation #1: Pain much improved with the ketorolac and Valium Medications Administered Discontinued Medications Generic Name Dose Route Start Last Admin Trade Name Freq PRN Reason Stop Dose Admin Diazepam 5 mg 02/23/25 01:58 02/23/25 02:10 Diazepam 10 Mg/2 Ml Cartridge IVPUSH 02/23/25 01:59 5 mg STAT STA Administration Ketorolac Tromethamine 15 mg 02/23/25 01:58 02/23/25 02:10 Ketorolac Tromethamine 15 Mg/Ml Vial IVPUSH 02/23/25 01:59 15 mg ONCE ONE Administration Medical Decision Making Medical Decision Making [facility] Narrative: 49-year-old male with a history of asthma, who vapes, chronic migraine, GERD, anxiety and depression, PTSD who presents with cough and cold symptoms x1 week. Patient states he has had ongoing cough with wheezing at home. Unclear if he has had fevers, no sick contacts with similar symptoms. Patient states he has developed left-sided chest wall pain that radiates to the back. Pain worse with palpation of chest wall and movement of torso, worse with inspiration. He states he is splinting when he breathes. Denies new activity or heavy lifting that could have also contributed to his symptoms. Patient has some degree of left upper quadrant discomfort as well. Denies alcohol abuse history, nausea, vomiting, or prior pancreatitis. Problem: Vaping, asthma History: Per patient I have considered the following differential diagnoses: Chest wall pain, costochondritis, viral syndrome, pneumonia, bronchitis, pancreatitis, PE Plan: Patient has had cough and cold symptoms with the wheezing for a week, clearly he has underlying viral syndrome, he likely has subsequent costochondritis given the nature of his symptoms that are highly reproducible with movement and palpation. We will be giving Valium and ketorolac. Chest x-ray completed there was no pneumonia. Viral panel in process. He also has some degree of focal left upper quadrant pain with the pain radiating to the back, considering pancreatitis, adding on a lipase. Thought about PE given the pleuritic nature of his discomfort worse with inspiration, however he has no risk factors, he is not hypoxic he is not tachycardic, deferring a dimer , there are other plausible explanations for his discomfort. I have independently reviewed the following tests: Labs: No leukocytosis, not anemic, no electrolyte abnormality, troponin less than 2.7, viral panel negative, screened for influenza RSV and COVID, lipase 27 EKG: Normal sinus rhythm, rate of 63, no ischemic changes no ectopy QTC 392 Chest x-ray:Findings: No consolidation or effusion. Mild asymmetric elevation of the right hemidiaphragm. Normal size heart. No acute fracture. IMPRESSION: 1. No acute findings. Differential Diagnosis Differential Diagnoses: The differential diagnosis associated with the presentation includes See [facility] Admission/Observation Consideration of admission/observation: Escalation of care including admission/observation considered Not applicable Lab Data [facility] Lab Attestation statement: I reviewed the patient's lab results. 02/23/25 01:41 02/23/25 01:41 Labs: Lab Results 02/23/25 02/23/25 Range/Units 01:41 02:09 WBC 7.3 (4.8-10.8) X10*3/uL RBC 4.60 (4.60-5.80) X10*6/uL Hgb 14.3 (14.0-18.0) g/dl Hct 43.0 (42.0-52.0) % MCV 93.5 (80.0-98.0) fL MCH 31.1 (27.0-33.0) pg MCHC 33.3 (31.0-36.0) g/dl RDW 11.7 (11.0-16.0) % Plt Count 194 D (160-400) X10*3/uL MPV 10.4 (9.4-12.4) fL Immature Gran % (Auto) 0.5 H (0.0-0.4) % Neut % (Auto) 49.8 (45-73) % Lymph % (Auto) 36.1 (20-40) % [place] % (Auto) 11.4 H (2-11) % Eos % (Auto) 1.4 (0-4) % Baso % (Auto) 0.8 (0-2) % Lymph # (Auto) 2.7 (1.2-4.9) X10*3/uL [place] # (Auto) 0.8 (0.1-1.2) X10*3/uL Eos # (Auto) 0.1 (0.0-0.4) X10*3/uL Baso # (Auto) 0.1 (0.0-0.2) X10*3/uL Abs Immat Gran (auto) 0.04 H (0.00-0.03) X10*3/uL Absolute Neuts (auto) 3.7 (2.0-8.3) x10*3/uL Absolute Nucleated RBC 0.000 (0.0-0.012) X10*3/uL Nucleated RBC % (auto) 0.0 (0.0-0.2) /100WBC Sodium 137 (135-145) mmol/L Potassium 4.2 (3.3-5.1) mmol/L Chloride 111 H (96-108) mmol/L Carbon Dioxide 19 L (22-29) mmol/L Anion Gap 11 L (12-20) BUN 18 H (9-16) mg/dL Creatinine 0.94 (0.5-1.4) mg/dL Estim Creat Clear Calc -2.1 Estimated GFR > 60 Random Glucose 121 H (60-115) mg/dL Calcium 8.6 (8.4-10.2) mg/dL Magnesium 2.0 (1.6-2.6) mg/dL Total Bilirubin 0.2 (0.0-1.0) mg/dL AST 32 (5-37) U/L ALT 41 H (0-40) U/L Alkaline Phosphatase 67 (39-117) U/L Troponin I High Sens < 2.7 (<3.5-35.0) ng/L NT-Pro-B Natriuret Pep < 15.8 (<300) pg/mL Total Protein 6.4 L (6.5-8.0) g/dL Albumin 4.0 (3.5-5.0) g/dL Lipase 27 (8-78) U/L Influenza Type A (PCR) NEGATIVE (Negative) Influenza Type B (PCR) NEGATIVE (Negative) RSV RNA Qual (PCR) NEGATIVE (Negative) SARS-CoV-2 RNA (RT-PCR) NEGATIVE (Negative) Independent Interpretation I performed an independent interpretation of an: EKG Radiology Impression Discussion of test interpretation with radiology: I have reviewed the radiologist's reading. Discharge Plan Discharge Clinical Impression: Chest wall pain, Costochondritis Patient Disposition: Home, Self-Care Instructions: Costochondritis (ED), Chest Wall Pain (ED) Additional Instructions: All of your screening labs including a cardiac enzymes were normal, you were tested for influenza RSV and COVID, the viral panel was negative. The chest x-ray is clear there was no pneumonia. There were no concerning changes on the EKG. Your exam was most consistent with chest wall pain/costochondritis. See home care instructions. This is an inflammatory process that has self-limiting. Take the ketorolac as directed take it with food this is an anti-inflammatory. Take the prednisone as directed, take it in the morning, this will help your asthma symptoms as well. Use your inhalers as needed. Use the methocarbamol as needed for further chest wall pain, this is a muscle relaxant, it will cause drowsiness, do not drive or operate machinery while taking the medication. Follow up with your primary care provider as needed. Prescriptions: New methocarbamol 750 mg tablet 1,500 mg PO Q8H PRN (Reason: pain, moderate) Qty: 24 0RF ketorolac 10 mg tablet 10 mg PO Q6H PRN (Reason: pain) Qty: 20 0RF Rx Instructions: maximum total duration of 5 days from all oral, intranasal, or parenteral formulations, patient had an IV dose of Toradol here in the emergency room prednisone 20 mg tablet 40 mg PO DAILY Qty: 10 0RF No Action fluticasone propion-salmeterol [Advair HFA] 230-21 mcg/actuation HFA aerosol inhaler 2 puff inhalation Q12H Qty: 12 6RF albuterol sulfate 90 mcg/actuation HFA aerosol inhaler 2 puff PO Q4-6H PRN (Reason: for wheezing) Qty: 1 3RF amitriptyline 25 mg tablet 25 mg PO BEDTIME Qty: 30 6RF sumatriptan succinate 100 mg tablet 100 mg PO .COMPLEX MDD 200mg PRN (Reason: migraine headache) 30 Days Qty: 10 5RF Rx Instructions: 100 mg orally one a day as needed PRN; do not exceed 2 doses per 24 hrs magnesium oxide 400 mg (241.3 mg magnesium) tablet 400 mg PO BEDTIME Qty: 30 6RF riboflavin (vitamin B2) 400 mg tablet 400 mg PO QAM Qty: 30 6RF cyclobenzaprine 10 mg tablet 10 mg PO TID PRN (Reason: muscle spasm) Qty: 10 0RF Print Language: Spanish
[2025-02-23 03:55] VITALS: BP 130/75; PULSE 63; RESP 14; TEMP -17.7; TEMP 0; O2SAT 97
== END 2025-02-23 03:56 | disposition home or self-care (01) ==
PROVIDERS: Physician Assistant Medical; Emergency Provider Emergency Medicine; PCP Internal Medicine
DX: M94.0 Chondrocostal junction syndrome [Tietze] (principal); R07.89 Other chest pain; J45.909 Unspecified asthma, uncomplicated; F17.290 Nicotine dependence, other tobacco product, uncomplicated; Z88.6 Allergy status to analgesic agent
CPT/HCPCS: 36415; 71045; 80053; 83690; 83735; 83880; 84484; 85025; 87637; 93005; 96374; 96375; 99284; J1885; J3360

== ENCOUNTER → 2025-02-23 00:57 | Outpatient (BNV) | payer OTHER, SELFPAY | PROVIDERS: Emergency Provider Emergency Medicine; PCP Internal Medicine; Visit Provider Internal Medicine Cardiovascular Disease | DX: R07.9 Chest pain, unspecified (principal) | CPT/HCPCS: 93010 ==

== ENCOUNTER → 2025-02-23 01:23 | Outpatient (BNV) | payer OTHER, SELFPAY | PROVIDERS: Emergency Provider Emergency Medicine; PCP Internal Medicine; Visit Provider Radiology Diagnostic Radiology | DX: R07.9 Chest pain, unspecified (principal); R06.02 Shortness of breath | CPT/HCPCS: 71045 ==